=== PATIENT | male | born 1940 | race Caucasian/White ===

== ENCOUNTER → 2016-08-08 | Outpatient (CLI) | payer BC ==
[~2016-08-08] MED LIST: ACET-1256 PO; ALBUAER2 INH; ASPI-435 PO; ATOR10TA88 PO; BROM0.07 OPR; CALC667C4 PO; CRD200 PO; LOPE1TAB25 PO; MIRT15TA2 PO; MIRT30TA3 PO; MULT-513 PO; OCTR30KI6 IM; OXYC-57 PO; PANT40TA PO; PRED1SUS OPR; SODI650T8 PO; SPRIN/30 INH; SYMBICORT INH; SYMIN INH; TAMS0.4C38 PO; TIOTCAP INH; TPZ5 PO; WARF2TAB PO; WARF2TAB8 PO
[2016-08-08 14:35] LABS: THYROID STIMULATING HORMONE 1.36 uIu/ml (0.300-4.500)
== END | disposition home or self-care (01) ==
LOC: C.LABMFLN 07:22
PROVIDERS: ATTEND Internal Medicine Endocrinology, Diabetes & Metabolism
DX: E05.90 Thyrotoxicosis, unspecified without thyrotoxic crisis or storm (principal)

== ENCOUNTER → 2016-08-29 | Outpatient (CLI) | payer BC ==
[~2016-08-29] MED LIST changes: +GADOXETATE DISODIUM IV PRN; -OXYC-57 PO; -PANT40TA PO; -TPZ5 PO
--- NOTE | 2016-08-29 16:13 | DIAGNOSTIC IMAGING REPORT ---
MRI LIVER COMBO CLINICAL HISTORY: Neuroendocrine tumor of the small bowel. Liver masses. TECHNIQUE: Imaging was performed prior to and following IV contrast injection. COMPARISON STUDY: CT scan dated 05/23/2016 FINDINGS: Imaging was performed in the axial and coronal planes, before and after the administration of 5 cc of intravenous Eovist. A reduced dose was utilized as the patient is azotemic and on dialysis. The examination is mildly compromised due to motion artifact. 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 There is no pancreatic ductal dilatation. There is an 11 mm left renal cyst. No splenic masses are visualized. There is no evidence of abdominal aortic aneurysm. There is mild dilatation of the common bile duct which measures 8 mm. There is minimal intrahepatic ductal dilatation. The gallbladder surgically absent. There are 3 hepatic masses measuring 13 mm 8 mm and 7 mm respectively. These are located in segment 6 and segment 7 of the right hepatic lobe. These lesions demonstrate minimal enhancement. There are mildly T2 bright. These remain unchanged in size when compared with a prior February 28, 2016 CT scan. IMPRESSION: 1. Stable indeterminate hepatic masses measuring 13, 8, and 7 mm respectively 2. Surgically absent gallbladder. Stable mild ductal dilatation 3. 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 08/29/2016 4:12 PM Dictated Date/Time: 08/29/2016 3:47 PM
== END | disposition home or self-care (01) ==
LOC: C.MRI 14:06
PROVIDERS: ATTEND Nurse Practitioner Family
DX: C17.9 Malignant neoplasm of small intestine, unspecified (principal); C78.7 Secondary malignant neoplasm of liver and intrahepatic bile duct

== ENCOUNTER → 2016-09-19 | Outpatient (CLI) | payer BC ==
[~2016-09-19] MED LIST changes: -GADOXETATE DISODIUM IV PRN
[2016-09-19 13:02] LABS: BASO % 0.5 %; BASO ABS # 0.02 K/uL (0-0.2); COMPLETE YES; EOS % 4.1 %; HEMATOCRIT 31.7 % (42-52); IG% 0.2 %; LYMPH % 33.3 %; LYMPH ABS # 1.45 K/uL (1.2-3.4); MEAN CELL VOLUME 97.8 fL (80-100); MEAN CORPUSCULAR HEMOGLOBIN 32.7 pg (25-34); MEAN CORPUSCULAR HGB CONC 33.4 g/dl (32-36); MEAN PLATELET VOLUME 9.5 fL (7.4-10.4); MONO % 11.5 %; NEUT % 50.4 %; PLATELET COUNT 178 K/uL (130-400); RED BLOOD COUNT 3.24 M/uL (4.7-6.1); WHITE BLOOD COUNT 4.36 K/uL (4.8-10.8)
[2016-09-19 13:38] LABS: ALB/GLOB RATIO 0.8 (0.9-2); ALKALINE PHOSPHATASE 116 U/L (45-117); ALT/SGPT 14 U/L (12-78); AST/SGOT 13 U/L (15-37); BLOOD UREA NITROGEN 29 mg/dl (7-18); CALCIUM 7.1 mg/dl (8.5-10.1); CARBON DIOXIDE 31 mmol/L (21-32); CHLORIDE 96 mmol/L (98-107); GLUCOSE 228 mg/dl (70-99); POTASSIUM 3.3 mmol/L (3.5-5.1); SODIUM 138 mmol/L (136-145)
[2016-09-19 13:40] LABS: THYROID STIMULATING HORMONE 1.75 uIu/ml (0.300-4.500)
== END | disposition home or self-care (01) ==
LOC: C.LABMFLN 07:49
PROVIDERS: ATTEND Nurse Practitioner Family
DX: C17.9 Malignant neoplasm of small intestine, unspecified (principal); E05.90 Thyrotoxicosis, unspecified without thyrotoxic crisis or storm; I48.0 Paroxysmal atrial fibrillation; Z51.81 Encounter for therapeutic drug level monitoring; Z79.01 Long term (current) use of anticoagulants

== ENCOUNTER → 2016-11-07 | Outpatient (CLI) | payer BC ==
[~2016-11-07] MED LIST changes: +ATOR10TA82 PO; -ATOR10TA88 PO; -OCTR30KI6 IM; +SNDI30 IM; -WARF2TAB8 PO
[2016-11-07 18:58] LABS: THYROID STIMULATING HORMONE 0.814 uIu/ml (0.300-4.500)
== END | disposition home or self-care (01) ==
LOC: C.LABMFLN 10:35
PROVIDERS: ATTEND Physician Assistant
DX: E05.90 Thyrotoxicosis, unspecified without thyrotoxic crisis or storm (principal)

== ENCOUNTER → 2016-11-14 | Outpatient (CLI) | payer BC | END | disposition home or self-care (01) | LOC: C.LABSPEC 17:07 | PROVIDERS: ATTEND Urology | DX: R39.11 Hesitancy of micturition (principal); R35.0 Frequency of micturition ==

== ENCOUNTER → 2016-12-10 | Outpatient (CLI) | payer BC ==
[2016-12-10 18:02] LABS: URINE APPEARANCE CLOUDY (CLEAR); URINE BILIRUBIN NEG (NEG); URINE COLOR YELLOW; URINE EPITHELIAL CELL AUTO >30 /lpf (0-5); URINE NITRITE NEG (NEG); URINE SPECIFIC GRAVITY 1.016 (1.000-1.030); UROBILINOGEN NEG (NEG); ZZUR CULT IF INDIC CLEAN CATCH NO
[2016-12-10 18:15] LABS: THYROID STIMULATING HORMONE 1.43 uIu/ml (0.300-4.500)
[2016-12-10 18:16] LABS: MANUAL MICROSCOPIC REQUIRED? NO; REVIEW REQ? NO
== END | disposition home or self-care (01) ==
LOC: C.LABMFLN 12:12
PROVIDERS: ATTEND Physician Assistant
DX: R35.0 Frequency of micturition (principal); E05.90 Thyrotoxicosis, unspecified without thyrotoxic crisis or storm

== ENCOUNTER → 2017-02-06 | Day surgery (SDC) | payer BC ==
[2017-01-07 12:35] VITALS: Ht 180.3 cm; Wt 104.5 kg
[~2017-02-06] VITALS: Ht 180.3 cm; Wt 104.5 kg
[~2017-02-06] MED LIST changes: +500ML BSS 0.3ML EPI 1:1000PF IRRIG ONE; -ACET-1256 PO; +ACETAMINOPHEN 325 MG TAB PO PRN; +AMVISC PLUS 0.8ML SYRINGE INT OCU ONE; -ATOR10TA82 PO; +ATOR10TA88 PO; +ATROPINE SULFATE 0.1 MG/ML 5ML SYR IV PRN; -BROM0.07 OPR; +BSS FLUSH ONE; +EpHEDrine SULFATE INJ 50 MG/ML AMP IV PRN; +EpINEphrine INJ 1MG/ML AMP 1 MG/ML AMP ONE; +LACTATED RINGER'S 1000ML 500 ML IV SCH; +LIDOCAINE 3.5% OPH GEL PER APPLICATION CHARGE ONE; +LIDOCAINE HCL 1% MPF 2 ML VIAL ONE; +MIDAZOLAM HCL 1 MG/ML 2ML VIAL ONE; -MIRT30TA3 PO; -MULT-513 PO; +OCTR30KI6 IM; +OCUCOAT 1 ML SOLN IO ONE; +ONDANSETRON INJ 2 MG/ML 2 ML VIAL IV PRN; +POVIDONE-IODINE OP SOLN 30 ML BTL ONE; -PRED1SUS OPR; +PROPARACAINE 0.5% OP SOLN PER DROP CHARGE OPR SCH; -SNDI30 IM; -SYMBICORT INH; -TIOTCAP INH; +TOBRAMYCIN/DEXAMETHASONE OPH OINT PER APPLN CHARGE ONE
[2017-02-06] MEDS: PHENYLEPHRINE HCL 2.5% OP SOLN PER DROP CHARGE OPR SCH ×2 (10:54→11:11)
[2017-02-06] MEDS: TROPICAMIDE 1% OP SOLN PER DROP CHARGE OPR SCH ×2 (10:55→11:12)
[2017-02-06] MEDS: CYCLOPENTOLATE HCL 1% OP SOLN PER DROP CHARGE OPR SCH ×2 (10:56→11:12)
[2017-02-06] MEDS: KETOROLAC 0.5% OP SOLN PER DROP CHARGE OPR SCH ×2 (10:57→11:12)
[2017-02-06] MEDS: GATIFLOXACIN OP SOLN PER DROP CHARGE OPR SCH ×2 (10:57→11:13)
--- NOTE | 2017-02-06 11:25 | History & Physical Bridge - SC ---
H&P Re-Evaluation Bridge Note: I have examined the patient, reviewed the History & Physical and in the interval since the performance of the History & Physical I have noted the following changes of clinical significance: Diagnosis: Right Cataract Procedure: Right Cataract Removal with Lens Implant No changes noted
--- NOTE | 2017-02-06 12:25 | Discharge Instructions-SurgCtr ---
Discharge Instructions Date of Service Feb 06, 2017. Visit Reason for Visit: Cataract Right Eye Discharge Discharge Diagnosis / Problem: cataract Discharge Goals Goal(s): Improve function Activity Recommendations Activity Limitations: per Instructions/Follow-up section Anesthesia . Post Anesthesia Instructions: If you have had General Anesthesia or IV Sedation: * Do not drive today. * Resume driving when surgeon permits. * Do not make important decisions or sign legal documents today. * Call surgeon for: 1. Temperature elevations greater than 101 degrees F. 2. Uncontrollable pain. 3. Excessive bleeding. 4. Persistent nausea and vomiting. 5. Medication intolerance (nausea, vomiting or rash). * For nausea and vomiting use only clear liquids such as: tea, soda, bouillon until nausea subsides, then gradually increase diet as tolerated. * If you have any concerns or questions, call your surgeon's office. If physician is unavailable and it is an emergency, call 911 or go to the nearest emergency room. . Instructions / Follow-Up Instructions / Follow-Up ACTIVITY RECOMMENDATIONS: * No strenuous lifting, jogging or running for 4 days * No swimming or yard work for 1 week. * Limited bending is permitted, such as putting on shoes. RETURN TO SCHOOL/WORK: No work until seen by physician in office. MEDICATIONS: Resume previous medications unless instructed otherwise by your surgeon. This includes eye drops for glaucoma. Zymaxid/Gatifloxacin (carpenter cap) - one drop every 2 hours until bedtime Nevanac/Ilevro/Prolensa/Ketorolac (jain cap) - one drop every 4 hours until bedtime Prednisolone/Durezol (white/pink cap, SHAKE WELL) - one drop every 2 hours until bedtime Starting tomorrow - all 3 drops every 4 hours until seen in the office Optive drops - as needed for discomfort SPECIAL CARE INSTRUCTIONS: * Wear eyeshield when sleeping, for four nights. * You may wear your own glasses or sunglasses while awake. * You may read or watch TV * You may shower and wash your face, but be gentle around the eye and pat dry. * Blurry vision and mild irritation are normal. * Call office if pain is more severe or vision becomes dark at . FOLLOW UP VISIT: Follow-up with Dr Mendez tomorrow. Diet Recommendations Home Diet: resume previous diet Procedures Procedures Performed: Right Cataract Phacoemulsification With Intraocular Lens Implant Pending Studies Studies pending at discharge: no Medical Emergencies . Who to Call and When: Medical Emergencies: If at any time you feel your situation is an emergency, please call 911 immediately. . Non-Emergent Contact Non-Emergency issues call your: Vending Technician . . "Provider Documentation" section prepared by Nickolas Mendez. .
[2017-02-06 12:26] VITALS: TEMP 36.5
--- NOTE | 2017-02-06 12:26 | [facility] Operative Report ---
Operative Report Date of Service Feb 06, 2017. Operative Report 1. PREOPERATIVE DIAGNOSIS: Cataract of the right eye. 2. POSTOPERATIVE DIAGNOSIS: Same. 3. PROCEDURE: Phacoemulsification with intraocular lens implantation of the right eye. SURGEON: Dr. Nickolas Mendez. ANESTHESIA: Topical Lidocaine gel, 1% Non- Preserved intracameral Lidocaine, and monitored intravenous sedation. INDICATIONS FOR THE PROCEDURE: The patient is a 76 - year-old male with a history of cataract of the right eye causing significant visual impairment. The details of the proposed procedure were explained to the patient who asked appropriate questions and following discussion of all risks, benefits and alternatives agreed to have the procedure done. 4. OPERATION AND FINDINGS: DESCRIPTION OF PROCEDURE: After informed consent was obtained, the patient was brought to the Operating Room at the [facility]. The patient was placed in a supine position and then the right eye was prepped and draped in the usual sterile fashion for intraocular surgery. A drop of topical Lidocaine gel was placed in the operative eye. A wire lid speculum was then placed in the fornices. A corneal paracentesis was then created temporally. The Non-Preserved Lidocaine was then instilled into the anterior chamber. The anterior chamber was then pressurized with viscoelastic. A 2.0 mm clear corneal incision was then created temporally. A cystotome was inserted into the anterior chamber and used to create a tear in the anterior lens capsule. This capsular tear was then used to create a small flap and the flap was dragged in a counterclockwise direction in order to create a continuous curvilinear capsulorrhexis. Hydrodissection was accomplished with balanced salt solution. Phacoemulsification of the lens nucleus was then performed in a standard [id number] technique. The phaco time was 30 seconds with an average power of 8 %. The remaining cortical material was removed using irrigation aspiration. The capsular bag was then filled with viscoelastic. A Bausch & Lomb MI60L +19.0 diopters lens was then loaded into the injector and injected into the capsular bag. The remaining viscoelastic was removed with the irrigation aspiration handpiece. The wound was hydrated and then checked and found to be watertight. The intraocular pressure was checked and found to be adequate. The wire lid speculum was removed and the patient's face was cleaned and dried. TobraDex ointment was placed in the inferior fornix. The patient was discharged to the Recovery Room having tolerated the procedure well. There were no complications. The patient will be seen tomorrow in the office for follow-up. I attest to the content of the Intraoperative Record and any orders documented therein. Any exceptions are noted below.
--- NOTE | 2017-02-06 12:35 | Anesthesia Progress Nt - [facility] ---
Anesthesia Post Op Note Date & Time Feb 06, 2017 at 12:35 Vital Signs Pain Intensity: 0 Vital Signs Past 12 Hours Date Time Temp Pulse Resp B/P (MAP) Pulse Ox O2 Delivery O2 Flow Rate FiO2 02/06/17 10:31 36.9 77 18 107/61 (76) 95 Room Air Notes Mental Status: alert / awake / arousable, participated in evaluation Pt Amnestic to Procedure: Yes Nausea / Vomiting: adequately controlled Pain: adequately controlled Airway Patency, RR, SpO2: stable & adequate BP & HR: stable & adequate Hydration State: stable & adequate Anesthetic Complications: no major complications apparent
[2017-02-06 13:02] VITALS: BP 96/61; PULSE 73; O2SAT 97
== END | disposition home or self-care (01) ==
LOC: X.SURG 10:13
PROVIDERS: ATTEND Ophthalmology
DX: H26.9 Unspecified cataract (principal); J44.9 Chronic obstructive pulmonary disease, unspecified; E11.9 Type 2 diabetes mellitus without complications; N18.6 End stage renal disease; N40.0 Benign prostatic hyperplasia without lower urinary tract symptoms; H40.9 Unspecified glaucoma; E05.90 Thyrotoxicosis, unspecified without thyrotoxic crisis or storm; I25.2 Old myocardial infarction; Z99.2 Dependence on renal dialysis; Z79.82 Long term (current) use of aspirin; Z79.01 Long term (current) use of anticoagulants; Z80.0 Family history of malignant neoplasm of digestive organs; Z82.3 Family history of stroke; Z82.49 Family history of ischemic heart disease and other diseases of the circulatory system

== ENCOUNTER → 2017-03-11 | Day surgery (SDC) | payer BC ==
[2017-02-20 10:25] VITALS: Ht 180.3 cm; Wt 100.0 kg
[~2017-03-11] VITALS: Ht 180.3 cm; Wt 100.0 kg
[~2017-03-11] MED LIST changes: +ACET-1256 PO; +BROM0.07 OPR; -ONDANSETRON INJ 2 MG/ML 2 ML VIAL IV PRN; +PRED1SUS OPR; +PROPARACAINE 0.5% OP SOLN PER DROP CHARGE OPL SCH; -PROPARACAINE 0.5% OP SOLN PER DROP CHARGE OPR SCH
[2017-03-11] MEDS: PHENYLEPHRINE HCL 2.5% OP SOLN PER DROP CHARGE OPL SCH ×2 (08:59→09:03)
[2017-03-11] MEDS: TROPICAMIDE 1% OP SOLN PER DROP CHARGE OPL SCH ×2 (08:59→09:04)
[2017-03-11] MEDS: CYCLOPENTOLATE HCL 1% OP SOLN PER DROP CHARGE OPL SCH ×2 (09:00→09:05)
[2017-03-11] MEDS: KETOROLAC 0.5% OP SOLN PER DROP CHARGE OPL SCH ×2 (09:01→09:06)
[2017-03-11] MEDS: GATIFLOXACIN OP SOLN PER DROP CHARGE OPL SCH ×2 (09:02→09:13)
--- NOTE | 2017-03-11 09:29 | History & Physical Bridge - [place] ---
H&P Re-Evaluation Bridge Note: I have examined the patient, reviewed the History & Physical and in the interval since the performance of the History & Physical I have noted the following changes of clinical significance: No changes noted
--- NOTE | 2017-03-11 10:00 | Discharge Instructions-SurgCtr ---
Discharge Instructions Date of Service Mar 11, 2017. Visit Reason for Visit: Cataract Left Eye Discharge Discharge Diagnosis / Problem: cataract Discharge Goals Goal(s): Improve function Activity Recommendations Activity Limitations: per Instructions/Follow-up section Anesthesia . Post Anesthesia Instructions: If you have had General Anesthesia or IV Sedation: * Do not drive today. * Resume driving when surgeon permits. * Do not make important decisions or sign legal documents today. * Call surgeon for: 1. Temperature elevations greater than 101 degrees F. 2. Uncontrollable pain. 3. Excessive bleeding. 4. Persistent nausea and vomiting. 5. Medication intolerance (nausea, vomiting or rash). * For nausea and vomiting use only clear liquids such as: tea, soda, bouillon until nausea subsides, then gradually increase diet as tolerated. * If you have any concerns or questions, call your surgeon's office. If physician is unavailable and it is an emergency, call 911 or go to the nearest emergency room. . Instructions / Follow-Up Instructions / Follow-Up ACTIVITY RECOMMENDATIONS: * No strenuous lifting, jogging or running for 4 days * No swimming or yard work for 1 week. * Limited bending is permitted, such as putting on shoes. RETURN TO SCHOOL/WORK: No work until seen by physician in office. MEDICATIONS: Resume previous medications unless instructed otherwise by your surgeon. This includes eye drops for glaucoma. Zymaxid/Gatifloxacin (carpenter cap) - one drop every 2 hours until bedtime Nevanac/Ilevro/Prolensa/Ketorolac (jain cap) - one drop every 4 hours until bedtime Prednisolone/Durezol (white/pink cap, SHAKE WELL) - one drop every 2 hours until bedtime Starting tomorrow - all 3 drops every 4 hours until seen in the office Optive drops - as needed for discomfort SPECIAL CARE INSTRUCTIONS: * Wear eyeshield when sleeping, for four nights. * You may wear your own glasses or sunglasses while awake. * You may read or watch TV * You may shower and wash your face, but be gentle around the eye and pat dry. * Blurry vision and mild irritation are normal. * Call office if pain is more severe or vision becomes dark at . FOLLOW UP VISIT: Follow-up with Dr Mendez tomorrow. Diet Recommendations Home Diet: resume previous diet Procedures Procedures Performed: Left Cataract Phacoemulsification With Intraocular Lens Implant Pending Studies Studies pending at discharge: no Medical Emergencies . Who to Call and When: Medical Emergencies: If at any time you feel your situation is an emergency, please call 911 immediately. . Non-Emergent Contact Non-Emergency issues call your: Assistant Professor Of Mathematics . . "Provider Documentation" section prepared by Nickolas Mendez. .
[2017-03-11 10:01] VITALS: TEMP 36.3
--- NOTE | 2017-03-11 10:01 | [facility] Operative Report ---
Operative Report Date of Service Mar 11, 2017. Operative Report 1. PREOPERATIVE DIAGNOSIS: Cataract of the left eye. 2. POSTOPERATIVE DIAGNOSIS: Same. 3. PROCEDURE: Phacoemulsification with intraocular lens implantation of the left eye. SURGEON: Dr. Nickolas Mendez. ANESTHESIA: Topical Lidocaine gel, 1% Non- Preserved intracameral Lidocaine, and monitored intravenous sedation. INDICATIONS FOR THE PROCEDURE: The patient is a 76 - year-old male with a history of cataract of the left eye causing significant visual impairment. The details of the proposed procedure were explained to the patient who asked appropriate questions and following discussion of all risks, benefits and alternatives agreed to have the procedure done. 4. OPERATION AND FINDINGS: DESCRIPTION OF PROCEDURE: After informed consent was obtained, the patient was brought to the Operating Room at the [facility]. The patient was placed in a supine position and then the left eye was prepped and draped in the usual sterile fashion for intraocular surgery. A drop of topical Lidocaine gel was placed in the operative eye. A wire lid speculum was then placed in the fornices. A corneal paracentesis was then created temporally. The Non-Preserved Lidocaine was then instilled into the anterior chamber. The anterior chamber was then pressurized with viscoelastic. A 2.0 mm clear corneal incision was then created temporally. A cystotome was inserted into the anterior chamber and used to create a tear in the anterior lens capsule. This capsular tear was then used to create a small flap and the flap was dragged in a counterclockwise direction in order to create a continuous curvilinear capsulorrhexis. Hydrodissection was accomplished with balanced salt solution. Phacoemulsification of the lens nucleus was then performed in a standard [id number] technique. The phaco time was 28 seconds with an average power of 10 %. The remaining cortical material was removed using irrigation aspiration. The capsular bag was then filled with viscoelastic. A Bausch & Lomb MI60L +19.0 diopters lens was then loaded into the injector and injected into the capsular bag. The remaining viscoelastic was removed with the irrigation aspiration handpiece. The wound was hydrated and then checked and found to be watertight. The intraocular pressure was checked and found to be adequate. The wire lid speculum was removed and the patient's face was cleaned and dried. TobraDex ointment was placed in the inferior fornix. The patient was discharged to the Recovery Room having tolerated the procedure well. There were no complications. The patient will be seen tomorrow in the office for follow-up. I attest to the content of the Intraoperative Record and any orders documented therein. Any exceptions are noted below.
[2017-03-11 10:23] VITALS: BP 115/71; PULSE 98; O2SAT 95
--- NOTE | 2017-03-11 10:25 | Anesthesia Progress Nt - [facility] ---
Anesthesia Post Op Note Date & Time Mar 11, 2017 at 10:25 Vital Signs Pain Intensity: 0 Vital Signs Past 12 Hours Date Time Temp Pulse Resp B/P (MAP) Pulse Ox O2 Delivery O2 Flow Rate FiO2 03/11/17 10:23 98 16 115/71 (86) 95 Room Air 03/11/17 10:01 36.3 92 18 117/78 (91) 98 Room Air 03/11/17 08:48 36.7 96 12 100/67 (78) 96 Room Air Notes Mental Status: alert / awake / arousable, participated in evaluation Pt Amnestic to Procedure: Yes Nausea / Vomiting: adequately controlled Pain: adequately controlled Airway Patency, RR, SpO2: stable & adequate BP & HR: stable & adequate Hydration State: stable & adequate Anesthetic Complications: no major complications apparent
== END | disposition home or self-care (01) ==
LOC: X.SURG 08:22
PROVIDERS: ATTEND Ophthalmology
DX: H26.9 Unspecified cataract (principal); J44.9 Chronic obstructive pulmonary disease, unspecified; I48.91 Unspecified atrial fibrillation; E11.22 Type 2 diabetes mellitus with diabetic chronic kidney disease; N18.6 End stage renal disease; Z99.2 Dependence on renal dialysis; Z79.01 Long term (current) use of anticoagulants; Z96.1 Presence of intraocular lens

== ENCOUNTER → 2017-05-07 | Outpatient (CLI) | payer BC ==
[~2017-05-07] MED LIST changes: -500ML BSS 0.3ML EPI 1:1000PF IRRIG ONE; -ACETAMINOPHEN 325 MG TAB PO PRN; -AMVISC PLUS 0.8ML SYRINGE INT OCU ONE; -ATROPINE SULFATE 0.1 MG/ML 5ML SYR IV PRN; -BSS FLUSH ONE; -CRD200 PO; -EpHEDrine SULFATE INJ 50 MG/ML AMP IV PRN; -EpINEphrine INJ 1MG/ML AMP 1 MG/ML AMP ONE; -LACTATED RINGER'S 1000ML 500 ML IV SCH; -LIDOCAINE 3.5% OPH GEL PER APPLICATION CHARGE ONE; -LIDOCAINE HCL 1% MPF 2 ML VIAL ONE; -MIDAZOLAM HCL 1 MG/ML 2ML VIAL ONE; -OCUCOAT 1 ML SOLN IO ONE; -POVIDONE-IODINE OP SOLN 30 ML BTL ONE; -PROPARACAINE 0.5% OP SOLN PER DROP CHARGE OPL SCH; -TOBRAMYCIN/DEXAMETHASONE OPH OINT PER APPLN CHARGE ONE
--- NOTE | 2017-05-07 08:49 | DIAGNOSTIC IMAGING REPORT ---
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 COMPARISON STUDY: Abdominal CT scans dated 05/23/2016 and 02/28/2016. Abdominal MRI dated 08/29/16. TECHNIQUE: CT scan of the abdomen and pelvis is performed from the lung bases to the proximal femora. Images are reviewed in the axial, sagittal, and coronal planes. IV contrast was not administered for this examination as per the referring clinician. Note that the examination is suboptimal without oral and IV contrast.. A dose lowering technique was utilized adhering to the principles of ALARA. CT DOSE: 901.46 mGy.cm FINDINGS: Lung bases: The heart is normal in size and without pericardial effusion. The coronary arteries are calcified. Emphysematous change is suggested at the lung bases. No airspace consolidation or pleural effusion is seen. There are foci of bibasilar scarring versus atelectasis. Liver: The unenhanced liver is normal in size, contour, and attenuation. There is no intrahepatic biliary ductal dilatation. A 1.4 cm indeterminant low-attenuation lesion in hepatic segment VII seen on image #42 is unchanged from prior studies. Additional smaller hepatic lesions seen by MRI are not apparent on this unenhanced examination. No new hepatic lesion is suspected. Gallbladder: Surgically absent noting clips in the gallbladder fossa. Spleen: Normal in size and attenuation. Pancreas: A 1.2 cm cystic focus in the pancreatic neck seen on image #107 is unchanged and typical in appearance for a sidebranch IPMN. This was better seen on prior examinations. The unenhanced pancreas is moderately atrophic and otherwise grossly unremarkable. Adrenal glands: A 9 mm right adrenal nodule meets CT criteria for a fat-containing adenoma. The left adrenal gland is normal in appearance. Kidneys: The unenhanced kidneys are atrophic and without hydronephrosis. There are no renal calculi identified. Renovascular calcifications are observed. There is no evidence of contour deforming renal mass lesion. Abdominal vasculature: There is advanced atherosclerotic calcification as well as ectasia of the abdominal aorta and iliac arteries. Bowel: There are postoperative changes from right hemicolectomy with ileocolic anastomosis. No bowel obstruction is seen. There is mild to moderate diverticulosis of left colon without CT evidence of acute diverticulitis. Peritoneum: There is no intraperitoneal free air or abdominal ascites. Lymphadenopathy: None. Pelvic viscera: The prostate gland is enlarged, measuring 6.1 cm in transverse diameter. There is median lobe hypertrophy. The bladder is largely decompressed and grossly unremarkable. There is calcification of the penile tunica suggesting Peyronie's disease. Skeletal structures: The skeletal structures are osteopenic. Moderate lumbosacral spondylosis is observed. There are postoperative changes from laminectomy at L4. No lytic or blastic lesions are seen. IMPRESSION: 1. Suboptimal examination without oral and IV contrast. 2. There are no acute infectious or inflammatory findings in the abdomen or pelvis. 3. A subtle and indeterminant 1.4 cm low-attenuation lesion in the right hepatic lobe is unchanged from prior examinations. Smaller hepatic lesions seen by MRI are not apparent on CT. No new hepatic lesions are suspected. 3. There are postoperative changes from right hemicolectomy with ileocolic anastomosis. No bowel obstruction is seen. 4. Moderate diverticulosis of the left colon without CT evidence of acute diverticulitis. 5. Prostatomegaly. 6. Additional findings as above. Electronically signed by: Yair Laughlin M.D. 05/07/2017 8:48 AM Dictated Date/Time: 05/07/2017 8:27 AM
== END | disposition home or self-care (01) ==
LOC: C.CTS 07:51
PROVIDERS: ATTEND Nurse Practitioner Family
DX: C7A.019 Malignant carcinoid tumor of the small intestine, unspecified portion (principal)

== ENCOUNTER → 2017-07-01 | Outpatient (CLI) | payer BC ==
[~2017-07-01] MED LIST changes: +ATOR10TA82 PO; -ATOR10TA88 PO; -OCTR30KI6 IM; +SNDI30 IM
== END | disposition home or self-care (01) ==
LOC: C.MAMM 13:24
PROVIDERS: ATTEND Family Medicine
DX: Z13.820 Encounter for screening for osteoporosis (principal); M85.852 Other specified disorders of bone density and structure, left thigh

== ENCOUNTER → 2017-07-24 | Outpatient (CLI) | payer BC ==
--- NOTE | 2017-07-24 13:06 | DIAGNOSTIC IMAGING REPORT ---
(CHEST) THORAX WITHOUT CT DOSE: 1072.82 mGy.cm HISTORY: Emphysematous change J44.9 Chronic obstructive pulmonary [id number] TECHNIQUE: Multiaxial CT images of the chest were performed without contrast. A dose lowering technique was utilized adhering to the principles of ALARA. COMPARISON: 10/18/2015 FINDINGS: The mediastinal and hilar regions are remarkable for atherosclerotic change of the thoracic aorta. No well-defined evidence for focal aneurysm. Pleural calcification left lateral hemithorax minimally progressive from the prior study. No well-defined associated mass. Moderate chronic emphysematous change throughout both hemithoraces. This is similar as compared to the prior study. Minimal scarlike atelectatic change pleural-based left base with minimal scattered micronodularity adjacent to the major fissures. This is unchanged from the prior study and most likely represents. Fissural lymph nodes. Limited evaluation the upper abdomen shows evidence for prior cholecystectomy. Considerable cortical thinning is present. Several nonobstructing renal calcifications and/or renal vascular calcifications are present. These are similar. IMPRESSION: 1. Mild/moderate emphysematous change. 2. Several left hemithoracic pleural plaques slightly increased in geographic extent although there is no associated mass. 3. Study is otherwise negative. The above report was generated using voice recognition software. It may contain grammatical, syntax or spelling errors. Electronically signed by: Teodoro Maurice M.D. 07/24/2017 1:05 PM Dictated Date/Time: 07/24/2017 1:01 PM
== END | disposition home or self-care (01) ==
LOC: C.CTS 12:50
PROVIDERS: ATTEND Internal Medicine Pulmonary Disease
DX: J44.9 Chronic obstructive pulmonary disease, unspecified (principal); R91.8 Other nonspecific abnormal finding of lung field

== ENCOUNTER → 2017-09-18 | Outpatient (CLI) | payer BC ==
--- NOTE | 2017-09-18 12:40 | DIAGNOSTIC IMAGING REPORT ---
ADDENDUM IMPRESSION: Should read: 1. Minimal interval increase in size of a 10.4 mm cystic lesion within the pancreatic body. Electronically signed by: Teodoro Maurice M.D. 09/24/2017 12:42 PM Dictated Date/Time: 09/24/2017 12:42 PM ORIGINAL REPORT MRI ABDOMEN WITHOUT CONTRAST CLINICAL HISTORY: NEUROENDOCRINE TUMOR OF THE SMALL BOWEL renal failure TECHNIQUE: Imaging was performed without IV contrast enhancement. COMPARISON STUDY: Noncontrast CT scan dated 05/07/2017, MRI the liver dated August 29, 2016 FINDINGS: Imaging was performed in the coronal and axial planes. Intravenous contrast could not be administered due to the patient's renal failure. There is moderate respiratory motion artifact. There is mild intra and extrahepatic biliary ductal dilatation. The common bile duct measures 1 cm. There is been mild interval increase in the size of the 10.4 mm cystic lesion within the pancreatic body, likely representing IPMN Multiple T2 intense hepatic masses are visualized, the largest of which measures 14 mm. These are essentially unchanged when compared the preceding study. No splenic masses are visualized. No adrenal masses are visualized. There is no evidence of abdominal aortic dilatation. IMPRESSION: 1. Minimal interval increase in the size of a 10.4 cm cystic lesion within the pancreatic body, consistent with an IPMN 2. Multiple stable T2 hyperintense hepatic lesions, the largest of which measures 14 mm 3. Surgically absent gallbladder. Mild ductal dilatation. Electronically signed by: Grant Miller M.D. 09/18/2017 12:39 PM Dictated Date/Time: 09/18/2017 12:05 PM
== END | disposition home or self-care (01) ==
LOC: C.MRI 10:55
PROVIDERS: ATTEND Internal Medicine Hematology & Oncology
DX: C7A.019 Malignant carcinoid tumor of the small intestine, unspecified portion (principal); C78.7 Secondary malignant neoplasm of liver and intrahepatic bile duct; K86.9 Disease of pancreas, unspecified; Z90.49 Acquired absence of other specified parts of digestive tract

== ENCOUNTER → 2017-10-02 | Outpatient (CLI) | payer BC | END | disposition home or self-care (01) | LOC: C.LABMFLN 13:58 | PROVIDERS: ATTEND Physician Assistant | DX: E05.90 Thyrotoxicosis, unspecified without thyrotoxic crisis or storm (principal) ==

== ENCOUNTER → 2018-02-23 | Outpatient (CLI) | payer BC ==
[~2018-02-23] MED LIST changes: -ACET-1256 PO; -BROM0.07 OPR; +METO25TA4 PO; -MIRT15TA2 PO; -PRED1SUS OPR; +PRMT10 PO; +VNTHFA/IN INH
[2018-02-23 18:16] LABS: BASO % 0.4 %; BASO ABS # 0.03 K/uL (0-0.2); EOS % 2.2 %; EOS ABS # 0.15 K/uL (0-0.5); HEMATOCRIT 29.5 % (42-52); HEMOGLOBIN 9.8 g/dL (14.0-18.0); IG# 0.02 K/uL (0.00-0.02); LYMPH % 23.1 %; LYMPH ABS # 1.56 K/uL (1.2-3.4); MEAN CELL VOLUME 104.2 fL (80-100); MEAN CORPUSCULAR HEMOGLOBIN 34.6 pg (25-34); MEAN CORPUSCULAR HGB CONC 33.2 g/dl (32-36); MEAN PLATELET VOLUME 9.5 fL (7.4-10.4); MONO % 10.8 %; MONO ABS # 0.73 K/uL (0.11-0.59); NEUT % 63.2 %; NEUT ABS # 4.25 K/uL (1.4-6.5); PLATELET COUNT 213 K/uL (130-400); RED CELL DISTRIBUTION WIDTH CV 15.4 % (11.5-14.5); RED CELL DISTRIBUTION WIDTH SD 58.7 fL (36.4-46.3); WHITE BLOOD COUNT 6.74 K/uL (4.8-10.8)
== END | disposition home or self-care (01) ==
LOC: C.LAB 17:42
PROVIDERS: ATTEND Family Medicine
DX: K92.2 Gastrointestinal hemorrhage, unspecified (principal)

== ENCOUNTER → 2018-03-02 | Outpatient (CLI) | payer BC ==
[~2018-03-02] MED LIST changes: +PANT40TA2 PO; +SUCR1TAB PO
== END | disposition home or self-care (01) ==
LOC: C.LABSPEC 09:19
PROVIDERS: ATTEND Internal Medicine Gastroenterology
DX: D64.9 Anemia, unspecified (principal); K92.1 Melena

== ENCOUNTER 2018-03-03 19:13 | Inpatient (IN) | payer BC, OTHER ==
[~2018-03-03] VITALS: Ht 177.8 cm; Wt 105.7 kg
[~2018-03-03 19:13] MED LIST changes: -ATOR10TA82 PO; -CALC667C4 PO; -METO25TA4 PO; -PANT40TA2 PO; -PRMT10 PO; -SPRIN/30 INH; -SUCR1TAB PO; -SYMIN INH; -VNTHFA/IN INH
[2018-03-03] MEDS ORDERED: SODIUM CHLORIDE 0.9% 1000ML 1,000 ML IV STA (19:32)
[2018-03-03 20:03] LABS: BASO % 0.3 %; BASO ABS # 0.02 K/uL (0-0.2); EOS % 2.4 %; EOS ABS # 0.15 K/uL (0-0.5); HEMATOCRIT 27.5 % (42-52); IG# 0.01 K/uL (0.00-0.02); LYMPH % 23.5 %; LYMPH ABS # 1.47 K/uL (1.2-3.4); MEAN CELL VOLUME 103.4 fL (80-100); MEAN CORPUSCULAR HEMOGLOBIN 33.8 pg (25-34); MEAN CORPUSCULAR HGB CONC 32.7 g/dl (32-36); MEAN PLATELET VOLUME 8.8 fL (7.4-10.4); MONO % 9.6 %; PLATELET COUNT 170 K/uL (130-400); RED CELL DISTRIBUTION WIDTH CV 15.6 % (11.5-14.5); RED CELL DISTRIBUTION WIDTH SD 58.4 fL (36.4-46.3); WHITE BLOOD COUNT 6.25 K/uL (4.8-10.8)
[2018-03-03 20:20] LABS: INR 1.8 (0.9-1.1); PTT PATIENT 33.4 SECONDS (21.0-31.0)
[2018-03-03] MEDS ORDERED: METO25TA4 PO (20:28)
[2018-03-03] MEDS ORDERED: SODIUM CHLORIDE 0.9% 500ML 500 ML IV STA (20:32)
[2018-03-03 20:39] LABS: ALBUMIN 3.1 gm/dl (3.4-5.0); CALCIUM 8.2 mg/dl (8.5-10.1); CREATININE 6.06 mg/dl (0.60-1.40); POTASSIUM 3.4 mmol/L (3.5-5.1); TOTAL PROTEIN 6.9 gm/dl (6.4-8.2)
[2018-03-03] MEDS ORDERED: PHYTONADIONE INJ 5 MG in SODIUM CHLORIDE 0.9% 50ML 50 ML IV ONE (20:45)
[2018-03-03] MEDS ORDERED: PANTOprazole INJ 80 MG in DEXTROSE 5% 100ML IV ONE (20:45)
[2018-03-03] MEDS ORDERED: DILTIAZEM BOLUS / DRIP IV STA (20:47)
[2018-03-03] MEDS ORDERED: ALUMINUM/MAGNESIUM/SIMETH (MAALOX MAX) 30 ML UDC PO PRN (21:30)
[2018-03-03] MEDS ORDERED: ONDANSETRON INJ 2 MG/ML 2 ML VIAL IV PRN (21:30)
[2018-03-03] MEDS ORDERED: MAGNESIUM HYDROXIDE SUSP 30 ML UDC PO PRN (21:30)
--- NOTE | 2018-03-03 21:54 | History and Physical ---
History & Physical Date & Time of Service: Mar 03, 2018 at 21:44 Chief Complaint: Blood In Stool-Was Told To Go To Er Primary Care Physician: Janey Palma M.D. History of Present Illness Source: patient Patient is a 77 year old male with a PMH of COPD, ESRD on dialysis, Afib, BPH and neuroendocrine tumor of the liver that presented to [facility] due to black tarry stools. He notes that the black stools have been ongoing for the past several months. They will be very dark for a few days and then will be normal in colour for a few days. He has not had a dark stool for 8 days but was told to by his GI doctor to come to the ED if he were to experience any further dark stools. He started having dark stools earlier today and therefore he came to the ED. He denies any abdominal pain, bright red blood in his stools, he denies any diarrhea, he denies any pain with passing stools, he denies any nausea, vomiting , fevers or chills. He is on coumadin and his INR is currently 1.8. On review of systems the patient mentioned that he has been feeling short of breath recently when walking even a few steps. He also had 2 episodes of chest pain last week that last 2-3 minutes in duration. He notes he gets occasional palpitations and that he has Afib. He denies any leg swelling, PND, cough, or dizziness. Past Medical/Surgical History COPD, ESRD, Afib, BPH, neuroendocrine tumor of liver Family History No pertinent family history Social History Smoking Status: Former Smoker Smokeless Tobacco Use: No Alcohol Use: occasionally Drug Use: none Marital Status: Housing status: lives alone Occupational Status: retired Immunizations History of Influenza Vaccine: Yes History of Tetanus Vaccine?: Unknown History of Pneumococcal: Yes History of Hepatitis B Vaccine: Unknown Allergies Coded Allergies: No Known Allergies (Unverified , 03/03/18) Home Medications Scheduled Aspirin (Aspirin 81), 81 MG PO QAM Atorvastatin (Lipitor), 10 MG PO HS Calcium Acetate (Phoslo 667 Mg), 1 CAP PO TID Loperamide Hcl (Loperamide Hcl), 2 MG PO TID Metoprolol Succinate (Toprol Xl), 12.5 MG PO QPM Midodrine (Midodrine HCl), 5 MG PO 3XWK Octreotide Acetate (Sandostatin [place]), 30 MG IM MONTHLY Tamsulosin Hcl (Flomax), 0.4 MG PO QPM Tiotropium [place] (Spiriva Handihaler), 1 CAP INH QPM Warfarin Sodium (Coumadin), 2 MG PO 6XWK Warfarin Sodium (Coumadin), 3 MG PO WK Scheduled PRN Albuterol Hfa (Ventolin Hfa), 2-4 PUFFS INH Q6H PRN for Shortness of Breath Budesonide/Formoterol Fumarate (Symbicort 160-4.5 Mcg/Act), 1 PUFF INH DAILY PRN for Shortness of Breath Review of Systems 10 systems were reviewed and negative except as noted in the HPI Physical Exam Vital Signs Date Time Temp Pulse Resp B/P (MAP) Pulse Ox O2 Delivery O2 Flow Rate FiO2 03/03/18 20:44 120 19 96 03/03/18 20:44 118 03/03/18 20:30 116 22 127/82 91 Room Air 03/03/18 20:11 117 24 101/73 95 Room Air 03/03/18 19:59 95 Room Air 03/03/18 19:16 36.9 133 20 101/60 96 Room Air General Appearance: WD/WN, no apparent distress ENT: hearing grossly normal, pharynx normal Neck: supple, no carotid bruits, trachea midline, + JVD (half way up to the angle of the mandible) Respiratory/Chest: no respiratory distress, no accessory muscle use, + decreased breath sounds (bilaterally), + wheezing (bilaterally) Cardiovascular: no murmur, normal peripheral pulses, + irregularly irregular Abdomen/GI: normal bowel sounds, non tender, soft Extremities/Musculoskelatal: + pertinent finding (well maintained fistula in his R forearm) Neurologic/Psych: alert, normal mood/affect, oriented x 3 Skin: normal color, warm/dry, no rash Diagnostics Laboratory Results Results Past 24 Hours Test 03/03/18 19:45 03/03/18 19:50 Range/Units Urine Color DK YELLOW Urine Appearance CLEAR CLEAR Urine pH 5.0 4.5-7.5 Urine Specific [place] 1.018 1.000-1.030 Urine Protein 1+ NEG Urine Glucose (UA) NEG NEG Urine Ketones NEG NEG Urine Occult Blood TRACE NEG Urine Nitrite NEG NEG Urine Bilirubin NEG NEG Urine Urobilinogen NEG NEG Urine Leukocyte Esterase NEG NEG Urine WBC (Auto) 1-5 0-5 /hpf Urine RBC (Auto) 5-10 0-4 /hpf Urine Hyaline Casts (Auto) 1-5 0-5 /lpf Urine Epithelial Cells (Auto) 10-20 0-5 /lpf Urine Bacteria (Auto) NEG NEG White Blood Count 6.25 4.8-10.8 K/uL Red Blood Count 2.66 4.7-6.1 M/uL Hemoglobin 9.0 14.0-18.0 g/dL Hematocrit 27.5 42-52 % Mean Corpuscular Volume 103.4 80-100 fL Mean Corpuscular Hemoglobin 33.8 25-34 pg Mean Corpuscular Hemoglobin Concent 32.7 32-36 g/dl Platelet Count 170 130-400 K/uL Mean Platelet Volume 8.8 7.4-10.4 fL Neutrophils (%) (Auto) 64.0 % Lymphocytes (%) (Auto) 23.5 % Monocytes (%) (Auto) 9.6 % Eosinophils (%) (Auto) 2.4 % Basophils (%) (Auto) 0.3 % Neutrophils # (Auto) 4.00 1.4-6.5 K/uL Lymphocytes # (Auto) 1.47 1.2-3.4 K/uL Monocytes # (Auto) 0.60 0.11-0.59 K/uL Eosinophils # (Auto) 0.15 0-0.5 K/uL Basophils # (Auto) 0.02 0-0.2 K/uL RDW Standard Deviation 58.4 36.4-46.3 fL RDW Coefficient of Variation 15.6 11.5-14.5 % Immature Granulocyte % (Auto) 0.2 % Immature Granulocyte # (Auto) 0.01 0.00-0.02 K/uL Prothrombin Time 18.2 9.0-12.0 SECONDS Prothromb Time International Ratio 1.8 0.9-1.1 Activated Partial Thromboplast Time 33.4 21.0-31.0 SECONDS Partial Thromboplastin Ratio 1.3 Sodium Level 140 136-145 mmol/L Potassium Level 3.4 3.5-5.1 mmol/L Chloride Level 100 98-107 mmol/L Carbon Dioxide Level 28 21-32 mmol/L Anion Gap 12.0 3-11 mmol/L Blood Urea Nitrogen 47 7-18 mg/dl Creatinine 6.06 0.60-1.40 mg/dl Est Creatinine Clear Calc Drug Dose 12.9 ml/min Estimated GFR () 9.6 Estimated GFR (Non- 8.3 BUN/Creatinine Ratio 7.8 10-20 Random Glucose 144 70-99 mg/dl Calcium Level 8.2 8.5-10.1 mg/dl Total Bilirubin 0.4 0.2-1 mg/dl Direct Bilirubin 0.1 0-0.2 mg/dl Aspartate Amino Transf (AST/SGOT) 21 15-37 U/L Alanine Aminotransferase (ALT/SGPT) 16 12-78 U/L Alkaline Phosphatase 86 45-117 U/L Troponin I 0.019 0-0.045 ng/ml Total Protein 6.9 6.4-8.2 gm/dl Albumin 3.1 3.4-5.0 gm/dl Lipase 210 73-393 U/L EKG KKEKG with afib RVR Impression Assessment and Plan Patient is a 77 year old male with a PMH of COPD, ESRD on dialysis, Afib, BPH and neuroendocrine tumor of the liver that presented to [facility] due to black tarry stools. Anemia secondary to GI bleed - NPO except meds - pantoprazole 40mg bid IV - trend hgb/inr - hold aspirin and warfarin - will given one unit of blood - will check b12 and folate - consult Dr. Tafoya Shortness of breath - afib vs copd vs chf vs nstemi on differential - CXR and troponin not ordered in the ED, therefore I ordered these COPD - patient wheezing on exam - duonebs q4 scheduled - 60mg of methylprednisolone q8 - CXR ordered Afib - admit to telemetry - continue metoprolol - patient started on cardizem drip, will stop - will give 20meq of potassium and check magnesium/tsh - warfarin held and aspirin held - follows with Dr. Deluna ESRD on dialysis - dialysis on Friday, Friday and Friday - continue calcium - patient currently appears hypervolemic - consult nephro for dialysis tomorrow BPH - continue tamsulosin HLD - continue statin Neuroendocrine tumor of liver - patient receives octreotide injections once monthly - currently stable DVT prophylaxis - contraindicated due to GI bleed Dispo - patient lives alone - PT/OT evaluations DNR Attending addendum: I have physically seen this patient, have supervised the medical residents activities, and agree with the H&P unless as otherwise noted. Assessment and Plan: Upper GI bleed/anemia-- N.p.o. except essential medications Type and screen. Pantoprazole IV. H&H's every 6 hours. Hold aspirin and warfarin. Consult gastroenterology Dr. Tafoya. Atrial fibrillation/hypertension-- The patient will be admitted to telemetry for serial cardiac enzymes, serial EKG's, cardiac rhythm monitoring and a 2-D echocardiogram with Dopplers. Continue metoprolol with hold parameters. We stopped the Cardizem drip before it was started in the ED due to borderline blood pressure. Optimize potassium and magnesium Holding warfarin and aspirin as noted above. Consult Dr. Deluna, his drywall application supervisor. Remainder of orders and notations as above. Advanced Directives Existing Advance Directive: Yes Existing Living Will: Yes Existing Power of Seed Potato Arranger: Yes Resuscitation Status VTE Prophylaxis Will order VTE Prophylaxis: Yes
[2018-03-03] MEDS: PANTOprazole INJ 40 MG in DEXTROSE 5% 100ML IV SCH (22:47)
[2018-03-03] MEDS: DILTIAZEM HCL INJ 125 MG in DEXTROSE 5% 100ML IV PRN ×2 (22:49→23:06)
[2018-03-03] MEDS ORDERED: POTASSIUM CHLORIDE 10 MEQ TABCR PO STA (23:15)
[2018-03-03 23:25] VITALS: BP 129/87; PULSE 127; TEMP 36.8; O2SAT 97; Ht 177.8 cm; Wt 105.7 kg
--- NOTE | 2018-03-03 23:35 | DIAGNOSTIC IMAGING REPORT ---
CHEST 2 VIEWS ROUTINE HISTORY: Shortness of breath COMPARISON: Chest 02/06/2018. FINDINGS: The heart is normal in size. No pleural effusions. No pneumothorax. Mild interstitial thickening which is likely chronic. A few scarlike linear density at the left lung base, unchanged. No new focal lung consolidations to suggest pneumonia. No evidence for pulmonary edema. Emphysema is again noted. There are bilateral calcified pleural plaques. IMPRESSION: No significant change compared to the prior study. No acute process. Electronically signed by: Freddy Davis M.D. 03/03/2018 11:34 PM Dictated Date/Time: 03/03/2018 11:32 PM
[2018-03-04] VITALS (31 sets, daily range): BP systolic 100–134; BP diastolic 66–92; PULSE 97–135; TEMP 36.4–37; O2SAT 94–97
[2018-03-04] MEDS: METHYLPREDNISOLONE IV 60 MG in SYRINGE 0 ML IV SCH ×2 (00:22→08:28)
[2018-03-04 00:32] LABS: HEMATOCRIT 27.1 % (42-52); HEMOGLOBIN 8.8 g/dL (14.0-18.0)
--- NOTE | 2018-03-04 01:06 | EMERGENCY ROOM VISIT NOTE ---
History Report prepared by Yudith: Samanta Blanca Under the Supervision of: Dr. Adolph Hull D.O. First contact with patient: 19:21 Chief Complaint: GI ASSESSMENT Stated Complaint: BLOOD IN STOOL-WAS TOLD TO GO TO ER History of Present Illness The patient is a 77 year old male who presents to the Emergency Room with complaints of intermittent blood in stool beginning 1 month ago. He notes some SOB beginning about 2 weeks ago. The patient denies pain or burning with urination or abdominal pain. He states he does not believe he has ever had blood in his stool in the past. The patient sees Dr. Tafoya as his GI specialist. He takes Coumadin, and his number has been 2. He notes he is unsure why he takes Coumadin and denies a history of valve replacement. The patient denies a history of PE. Patient denies any chest pain or shortness of breath while sitting. Shortness of breath is only present with up and moving around. No other complaints at this time. Source of History: patient, family Onset: 1 month ago Position: abdomen Quality: other (blood in stool) Timing: intermittent Associated Symptoms: + SOB (beginning 2 weeks ago), No abdominal pain, No urinary symptoms Review of Systems See HPI for pertinent positives & negatives. A total of 10 systems reviewed and were otherwise negative. Past Medical & Surgical Medical Problems: (1) Black stools (2) Ileostomy present (3) Liver cancer Family History No pertinent family history Social History Smoking Status: Former Smoker Drug Use: none Marital Status: , Housing Status: lives with family Occupation Status: retired Current/Historical Medications Scheduled Aspirin (Aspirin 81), 81 MG PO QAM Atorvastatin (Lipitor), 10 MG PO HS Calcium Acetate (Phoslo 667 Mg), 1 CAP PO TID Loperamide Hcl (Loperamide Hcl), 2 MG PO TID Metoprolol Succinate (Toprol Xl), 12.5 MG PO QPM Midodrine (Midodrine HCl), 5 MG PO 3XWK Octreotide Acetate (Sandostatin [place]), 30 MG IM MONTHLY Tamsulosin Hcl (Flomax), 0.4 MG PO QPM Tiotropium [place] (Spiriva Handihaler), 1 CAP INH QPM Warfarin Sodium (Coumadin), 2 MG PO 6XWK Warfarin Sodium (Coumadin), 3 MG PO WK Scheduled PRN Albuterol Hfa (Ventolin Hfa), 2-4 PUFFS INH Q6H PRN for Shortness of Breath Budesonide/Formoterol Fumarate (Symbicort 160-4.5 Mcg/Act), 1 PUFF INH DAILY PRN for Shortness of Breath Allergies Coded Allergies: No Known Allergies (Unverified , 03/03/18) Physical Exam Vital Signs Date Time Temp Pulse Resp B/P (MAP) Pulse Ox O2 Delivery O2 Flow Rate FiO2 03/03/18 21:31 /54 03/03/18 21:28 132 22 96 03/03/18 21:27 135 27 96 03/03/18 21:01 109/74 03/03/18 20:57 127 21 94 03/03/18 20:44 120 19 96 03/03/18 20:44 118 03/03/18 20:30 116 22 127/82 91 Room Air 03/03/18 20:11 117 24 101/73 95 Room Air 03/03/18 19:59 95 Room Air 03/03/18 19:16 36.9 133 20 101/60 96 Room Air Physical Exam GENERAL: Sitting up in bed, alert, pale appearing, well nourished, no distress, non-toxic EYE EXAM: normal conjunctiva. OROPHARYNX: no exudate, no erythema, lips, buccal mucosa, and tongue normal and mucous membranes are moist NECK: supple, no nuchal rigidity, no adenopathy, non-tender LUNGS: Clear to auscultation. Normal chest wall mechanics HEART: tachycardic. no murmurs, S1 normal and S2 normal ABDOMEN: abdomen soft, non-tender, normo-active bowel sounds, no masses, no rebound or guarding. BACK: Back is symmetrical on inspection and there is no deformity, no midline tenderness, no CVA tenderness. SKIN: no rashes and no bruising UPPER EXTREMITIES: upper extremities are grossly normal. LOWER EXTREMITIES: No pitting edema. NEURO EXAM: Normal sensorium, cranial nerves II-XII grossly intact, normal speech, no gross weakness of arms, no gross weakness of legs. RECTAL: Guaiac positive stool, dark/tarry. Medical Decision & Procedures ER Provider Diagnostic Interpretation: Radiology results as stated below per my review: 2 VIEW OF CHEST No focal infiltrate, no pneumothorax. Laboratory Results 03/03/18 19:50 Red Blood Count 2.66, Mean Corpuscular Volume 103.4, Mean Corpuscular Hemoglobin 33.8, Mean Corpuscular Hemoglobin Concent 32.7, Mean Platelet Volume 8.8, Neutrophils (%) (Auto) 64.0, Lymphocytes (%) (Auto) 23.5, Monocytes (%) ( Auto) 9.6, Eosinophils (%) (Auto) 2.4, Basophils (%) (Auto) 0.3, Neutrophils # ( Auto) 4.00, Lymphocytes # (Auto) 1.47, Monocytes # (Auto) 0.60, Eosinophils # ( Auto) 0.15, Basophils # (Auto) 0.02 03/03/18 19:50 Test 03/03/18 19:45 03/03/18 19:50 Urine Color DK YELLOW Urine Appearance CLEAR (CLEAR) Urine pH 5.0 (4.5-7.5) Urine Specific [place] 1.018 (1.000-1.030) Urine Protein 1+ (NEG) Urine Glucose (UA) NEG (NEG) Urine Ketones NEG (NEG) Urine Occult Blood TRACE (NEG) Urine Nitrite NEG (NEG) Urine Bilirubin NEG (NEG) Urine Urobilinogen NEG (NEG) Urine Leukocyte Esterase NEG (NEG) Urine WBC (Auto) 1-5 /hpf (0-5) Urine RBC (Auto) 5-10 /hpf (0-4) Urine Hyaline Casts (Auto) 1-5 /lpf (0-5) Urine Epithelial Cells (Auto) 10-20 /lpf (0-5) Urine Bacteria (Auto) NEG (NEG) White Blood Count 6.25 K/uL (4.8-10.8) Red Blood Count 2.66 M/uL (4.7-6.1) Hemoglobin 9.0 g/dL (14.0-18.0) Hematocrit 27.5 % (42-52) Mean Corpuscular Volume 103.4 fL (80-100) Mean Corpuscular Hemoglobin 33.8 pg (25-34) Mean Corpuscular Hemoglobin Concent 32.7 g/dl (32-36) Platelet Count 170 K/uL (130-400) Mean Platelet Volume 8.8 fL (7.4-10.4) Neutrophils (%) (Auto) 64.0 % Lymphocytes (%) (Auto) 23.5 % Monocytes (%) (Auto) 9.6 % Eosinophils (%) (Auto) 2.4 % Basophils (%) (Auto) 0.3 % Neutrophils # (Auto) 4.00 K/uL (1.4-6.5) Lymphocytes # (Auto) 1.47 K/uL (1.2-3.4) Monocytes # (Auto) 0.60 K/uL (0.11-0.59) Eosinophils # (Auto) 0.15 K/uL (0-0.5) Basophils # (Auto) 0.02 K/uL (0-0.2) RDW Standard Deviation 58.4 fL (36.4-46.3) RDW Coefficient of Variation 15.6 % (11.5-14.5) Immature Granulocyte % (Auto) 0.2 % Immature Granulocyte # (Auto) 0.01 K/uL (0.00-0.02) Prothrombin Time 18.2 SECONDS (9.0-12.0) Prothromb Time International Ratio 1.8 (0.9-1.1) Activated Partial Thromboplast Time 33.4 SECONDS (21.0-31.0) Partial Thromboplastin Ratio 1.3 Anion Gap 12.0 mmol/L (3-11) Est Creatinine Clear Calc Drug Dose 12.9 ml/min Estimated GFR () 9.6 Estimated GFR (Non- 8.3 BUN/Creatinine Ratio 7.8 (10-20) Calcium Level 8.2 mg/dl (8.5-10.1) Total Bilirubin 0.4 mg/dl (0.2-1) Direct Bilirubin 0.1 mg/dl (0-0.2) Aspartate Amino Transf (AST/SGOT) 21 U/L (15-37) Alanine Aminotransferase (ALT/SGPT) 16 U/L (12-78) Alkaline Phosphatase 86 U/L (45-117) Troponin I 0.018 ng/ml (0-0.045) Total Protein 6.9 gm/dl (6.4-8.2) Albumin 3.1 gm/dl (3.4-5.0) Lipase 210 U/L (73-393) Laboratory results per my review. Medications Administered Medications (Trade) Dose Ordered Sig/Carlos Route Start Time Stop Time Status Last Admin Dose Admin Sodium Chloride 1,000 ml @ 999 mls/hr Q1H1M STAT IV 03/03/18 19:32 03/03/18 20:32 DC 03/03/18 20:08 999 MLS/HR Pantoprazole Sodium (Protonix IV Bolus/Drip) 1 ea NOW STAT IV 03/03/18 20:31 03/03/18 20:32 DC 03/03/18 22:47 1 EA Sodium Chloride 500 ml @ 999 mls/hr Q31M STAT IV 03/03/18 20:32 03/03/18 21:02 DC 03/03/18 21:54 999 MLS/HR Pantoprazole Sodium 80 mg/ Dextrose 120 ml @ 480 mls/hr NOW ONCE IV 03/03/18 20:45 03/03/18 20:59 DC 03/03/18 22:24 480 MLS/HR Pantoprazole Sodium 40 mg/ Dextrose 100 ml @ 20 mls/hr Q5H IV 03/03/18 20:45 03/04/18 01:45 03/03/18 22:47 20 MLS/HR Phytonadione 5 mg/ Sodium Chloride 50.5 ml @ 101 mls/hr ONE ONCE IV 03/03/18 20:45 03/03/18 21:14 DC 03/03/18 21:46 101 MLS/HR Diltiazem HCl 125 mg/Dextrose 125 ml @ 0 mls/hr Q0M PRN IV 03/03/18 21:00 03/04/18 00:14 DC 03/03/18 22:49 5 MLS/HR ECG Per My Interpretation Indication: tachycardia Rate (beats per minute): 124 Rhythm: atrial fibrillation (with RVR) Findings: other (norml axis) ED Course ED COURSE: Vital signs were reviewed and showed tachycardia. The patients medical record was reviewed The above diagnostic studies were performed and reviewed. ED treatments and interventions as stated above. 1926: The patient was evaluated in room C11B. A complete history and physical examination was performed. 1931: Ordered Sodium Chloride 1000 ml @ 999 mls/hr IV. 2030: Ordered Pantoprazole Sodium 1 ea IV, Sodium Chloride 500 ml @ 999 mls/hr IV. 2044: Ordered Phytonadione 5 mg/Sodium Chloride 50.5 ml @ 101 mls/hr Protocol IV , Pantoprazole Sodium 40mg/Dextrose 100 ml @ 20 mls/hr IV, Pantoprazole Sodium 80mg/Dextrose 120 ml @ 480 mls/hr IV. 2046: Ordered Diltiazem HCl 1 ea IV. 2099: I reviewed the patient's case with Dr. Kaur [facility] hospitalist. He will evaluate the patient for further management. 2102: Upon reevaluation, the patient's HR is in the 110s and BP in the 120s. I discussed my findings with the patient and he understands and agrees with the treatment plan. Based on the patients age, coexisting illnesses, exam and lab findings the decision to treat as an inpatient was made. The patient remained stable while under my care. The patient will be evaluated for further management. Medical Decision Differential diagnoses includes but is not limited to gastritis, peptic ulcer disease, GERD, gallbladder disease, pancreatitis, small bowel obstruction, acute coronary syndrome, pericarditis, ischemic bowel, irritable bowel disease, irritable bowel syndrome, appendicitis, diverticulitis, malignancy, hernia, urinary tract infection, torsion, perforation, trauma, infectious. Patient is a 77-year-old male with past medical history of A. fib on Coumadin that presents the ER for dark tarry stools associated with shortness of breath with exertion. Labs were obtained and show a hemoglobin of 9 off of a baseline of 10. BMP shows a significant increase of creatinine at 6 off of a baseline of 3. LFTs, bilirubin and troponin was negative. INR was 1.8. UA was negative. Rectally melanotic and heme positive stools. Patient was given IV vitamin K for reversal of his INR. Vitals did show A. fib with RVR. He was given initially fluids and his heart rate trended down. He was placed on a Cardizem drip as well. He was typed and crossed. He was monitored closely. Patient was admitted to internal medicine with a GI bleed on a Protonix drip, and Cardizem drip for A. fib with RVR receiving fluid replacement for BERNY. Medication Reconcilliation Current Medication List: was personally reviewed by me Blood Pressure Screening Patient's blood pressure: Normal blood pressure Blood pressure disposition: Did not require urgent referral Consults Time Called: 2038 Consulting Physician: Dr. Kaur [facility] hospitalist Returned Call: [phone] I reviewed the patient's case with Dr. Kaur [facility] hospitalist. He will evaluate the patient for further management. Impression Primary Impression: GI bleed Additional Impressions: Atrial fibrillation with RVR Acute kidney injury Critical Care I have personally spent 35 minutes of critical care time in the direct management of this patient. This includes bedside care, interpretation of diagnostic studies, and testing, discussion with consultants, patient, and family members, and other required patient management activities. This 35 minutes is in excess of all separately billable procedures. Scribe Attestation The scribe's documentation has been prepared under my direction and personally reviewed by me in its entirety. I confirm that the note above accurately reflects all work, treatment, procedures, and medical decision making performed by me. Departure Information Dispostion Being Evaluated By Hospitalist Referrals Janey Palma M.D. (PCP) Patient Instructions My [facility] Problem Qualifiers Primary Impression: GI bleed GI bleed type/associated pathology: unspecified gastrointestinal hemorrhage type Qualified Codes: K92.2 - Gastrointestinal hemorrhage, unspecified
[2018-03-04] MEDS: PANTOprazole INJ 40 MG in DEXTROSE 5% 100ML IV SCH (03:30)
[2018-03-04 05:45] LABS: INR 1.4 (0.9-1.1)
[2018-03-04 06:06] LABS: HEMATOCRIT 29.7 % (42-52); HEMOGLOBIN 9.7 g/dL (14.0-18.0); MEAN CELL VOLUME 103.1 fL (80-100); MEAN CORPUSCULAR HEMOGLOBIN 33.7 pg (25-34); MEAN CORPUSCULAR HGB CONC 32.7 g/dl (32-36); MEAN PLATELET VOLUME 9.6 fL (7.4-10.4); PLATELET COUNT 167 K/uL (130-400); RED CELL DISTRIBUTION WIDTH CV 16.1 % (11.5-14.5); RED CELL DISTRIBUTION WIDTH SD 60.3 fL (36.4-46.3); WHITE BLOOD COUNT 7.01 K/uL (4.8-10.8)
[2018-03-04 06:10] LABS: CALCIUM 7.7 mg/dl (8.5-10.1); CREATININE 6.38 mg/dl (0.60-1.40); POTASSIUM 4.3 mmol/L (3.5-5.1); TOTAL PROTEIN 6.8 gm/dl (6.4-8.2)
[2018-03-04] MEDS: ALBUT/IPRATROP 3MG/0.5MG NEB 3 ML VIAL INH SCH ×4 (07:04→19:08)
--- NOTE | 2018-03-04 07:53 | Family Medicine Progress Note ---
Progress Note Date of Service Mar 04, 2018. Subjective Pt evaluation today including: conversation w/ patient, physical exam, chart review Pain: Denies pain this am PO Intake: NPO currently Voiding: no voiding problems Patient feels well this morning, stating the unit of blood has made him feel "almost 100%". Has not passed another BM since the episode yesterday. Constitutional: No fever, No chills ENT: No hearing loss Respiratory: + wheezing, + shortness of breath Cardiovascular: No chest pain Abdomen: + GI bleeding Musculoskeletal: No calf pain Male : No dysuria, No hematuria Heme: + abnormal bleeding/bruising Skin: No bleeding All Other Systems: Reviewed and Negative Medications Current Inpatient Medications Medications (Trade) Dose Ordered Sig/Carlos Route Start Time Stop Time Status Last Admin Dose Admin Ondansetron HCl (Zofran Inj) 4 mg Q6H PRN IV 03/03/18 21:30 04/02/18 21:29 Metoprolol Succinate (Toprol Xl Tab) 12.5 mg QPM PO 03/04/18 21:00 04/03/18 20:59 Midodrine (Proamatine Tab) 5 mg MoWeFr@0800 PO 03/04/18 08:00 04/03/18 07:59 Tamsulosin HCl (Flomax Cap) 0.4 mg QPM PO 03/04/18 21:00 04/03/18 20:59 Miscellaneous Information (Order Awaiting Action) 1 ea QS N/A 03/04/18 08:00 04/03/18 07:59 Pantoprazole Sodium 40 mg/ Syringe 10 ml @ 5 mls/min DAILY@ IV 03/04/18 09:00 04/03/18 08:59 Albuterol/ Ipratropium (Duoneb) 3 ml QIDR INH 03/04/18 08:00 04/03/18 07:59 03/04/18 07:04 3 ML Methylprednisolone Sodium Succinate 60 mg/Syringe 0.96 ml @ 1.5 mls/min Q8H IV 03/04/18 00:00 04/03/18 00:00 03/04/18 00:22 1.5 MLS/MIN Objective Vital Signs Date Time Temp Pulse Resp B/P (MAP) Pulse Ox O2 Delivery O2 Flow Rate FiO2 03/04/18 07:04 112 18 95 Room Air 03/04/18 06:51 37.0 117 18 106/76 (86) 94 Room Air 03/04/18 03:27 36.6 121 18 110/78 94 03/04/18 02:52 36.6 120 18 113/75 96 03/04/18 01:52 36.6 110 18 110/74 95 03/04/18 01:22 37.0 117 18 105/69 94 03/04/18 01:07 36.7 123 18 107/74 (85) 95 Room Air 03/04/18 00:01 36.8 130 20 129/87 (101) 97 Room Air 03/03/18 23:25 36.8 127 18 129/87 97 Room Air 03/03/18 23:04 118 20 110/76 100 Nasal Cannula 2.0 03/03/18 22:50 125 21 109/77 100 Nasal Cannula 2.0 03/03/18 22:46 119 19 95 03/03/18 22:45 109/77 03/03/18 22:26 120 19 94 03/03/18 22:01 99/72 03/03/18 21:58 124 19 94 03/03/18 21:31 /54 03/03/18 21:28 132 22 96 03/03/18 21:27 135 27 96 03/03/18 21:01 109/74 03/03/18 20:57 127 21 94 03/03/18 20:44 120 19 96 03/03/18 20:44 118 03/03/18 20:30 116 22 127/82 91 Room Air 03/03/18 20:11 117 24 101/73 95 Room Air 03/03/18 19:59 95 Room Air 03/03/18 19:16 36.9 133 20 101/60 96 Room Air Physical Exam General Appearance: WD/WN, no apparent distress Eyes: PERRL, EOMI, sclerae normal ENT: hearing grossly normal Neck: no carotid bruits, trachea midline Respiratory/Chest: no respiratory distress, no accessory muscle use, + decreased breath sounds, + wheezing Cardiovascular: regular rate, rhythm, no edema, + systolic murmur Abdomen: normal bowel sounds, non tender, soft, + pertinent finding (scars from previous abdominal surgeries on abdominal wall) Extremities: non-tender, normal inspection, no pedal edema Neurologic/Psychiatric: no motor/sensory deficits, alert, normal mood/affect, oriented x 3 Skin: normal color, warm/dry Laboratory Results Last Resulted 03/04/18 05:20 Last Resulted 03/04/18 05:20 Past 24 Hours Test 03/03/18 19:50 03/04/18 05:20 Range/Units Prothromb Time International Ratio 1.8 H 1.4 H 0.9-1.1 Prothrombin Time 18.2 H 15.1 H 9.0-12.0 SECONDS Troponin I 0.018 0-0.045 ng/ml Assessment and Plan Patient is a 77 year old male with a PMH of COPD, ESRD on dialysis, Afib, BPH and neuroendocrine tumor of the liver that presented to [facility] due to black tarry stools. Microcytic anemia secondary to GI bleed - NPO except meds for possible GI investigation - pantoprazole 40mg bid IV - trend H&H - hold aspirin and warfarin, watch INR - 1U PRBC given on admission, hemoglobin responded appropriately - B12 and folate WNL - consult Dr. Tafoya Dyspnea, COPD - afib vs copd vs chf vs nstemi on differential - CXR shows chronic interstitial change, emphysema - troponin neg x 2 - patient wheezing on exam - duonebs q4 scheduled - 60mg of methylprednisolone q8 - CXR ordered Afib - continue metoprolol - will give 20meq of potassium - TSH normal - warfarin held and aspirin held - follows with Dr. Deluna ESRD on dialysis - dialysis on Friday, Friday and Friday - continue calcium - patient currently appears hypervolemic - consulted nephro for dialysis, HD set up for MWF --Also checking AVF patency via US today BPH - continue tamsulosin HLD - continue statin Neuroendocrine tumor of liver - patient receives octreotide injections once monthly - currently stable DVTP: contraindicated due to GI bleed Dispo: Tele, pt lives alone/PTOT evals Code: DNR Resident Physician Supervision Note: I interviewed and examined the patient. Discussed with Dr. Pittman and agree with findings and plan as documented in the note. Any exceptions or clarifications are listed here: None Documented By: Adolph Jackson feeling better melena this AM but none since feeling better with breathing vitals noted nad getting HD whne i see him, no pallor or icterus GI bleeding in the setting of coumadin use with subtherapeutic but elevated- [id number] INR with acute blood loss anemia -given SOB resolved after transfusion - probably was symptomatic anemia -GI eval - support cautious approach of GI, but also agree scope needed given that it would be most beneficial to get him back on anticoagulation as soon as is safe afib/RVR - probably got tachy from anemia, staying tachy due to arrhythmia - essentially asymptomatic - gently bring in line w additional metoprolol ESRD - HD otherwise as above Resident Tracking Resident Involvement: Resident Care Provided Care Provided: Adult Hospital Medicine
[2018-03-04] MEDS: PANTOprazole INJ 40 MG in SYRINGE 0 ML IV SCH ×2 (08:27→21:15)
[2018-03-04] MEDS ORDERED: CALCIUM ACETATE 667MG GELCAP PO SCH (09:00)
[2018-03-04] MEDS ORDERED: EPOETIN ALFA 10,000 UNITS/ML VIAL IV. ONE (09:45)
[2018-03-04] MEDS ORDERED: EPOETIN ALFA INJ 8,000 UNITS in SYRINGE 0 ML IV. SCH (10:00)
--- NOTE | 2018-03-04 10:04 | Nephrology Consultation ---
Nephrology Consultation Date & Providers Date of Consultation: Mar 04, 2018. Primary Care Provider: Janey Palma M.D. Referring Provider: Reason for Consultation ESRD on IHD History of Present Illness Mr. Lindsay is a 77-year-old white male who is seen at the request of the [facility] to provide inpatient HD and assist with medical management. Medical records in the EMR were reviewed today and are summarized as follows: Mr. Lindsay has ESRD and dialyzes MWF at [facility] dialysis unit under the care of Dr. Stevens. 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 Resection of liver lesion was not possible due to widespread metastatic disease. He is now managed by the [facility] team and reports that he receives monthly Somatostatin infusions. Mr. Lindsay reports that for the last two weeks he has had intermittent melena. This has progressively worsened. He contacted his [facility] and admission was advised for further evaluation. Mr. Lindsay was last dialyzed Friday. He reports that he has recently experienced prolonged bleeding following from his needle sites following dialysis. He requests AVF evaluation during his hospitalization. Past Medical/Surgical History Medical: # ESRD # AODM # ASCVD # Atrial fibrillation # Anemia # Pulmonary HTN # Aortic stenosis # BPH # Small bowel neuroendocrine tumor s/p [place] [facility] # Liver metastasis Allergies Coded Allergies: No Known Allergies (Unverified , 03/03/18) Inpatient Medications Current Inpatient Medications Medications (Trade) Dose Ordered Sig/Carlos Route Start Time Stop Time Status Last Admin Dose Admin Ondansetron HCl (Zofran Inj) 4 mg Q6H PRN IV 03/03/18 21:30 04/02/18 21:29 Metoprolol Succinate (Toprol Xl Tab) 12.5 mg QPM PO 03/04/18 21:00 04/03/18 20:59 Midodrine (Proamatine Tab) 5 mg MoWeFr@0800 PO 03/04/18 08:00 04/03/18 07:59 Tamsulosin HCl (Flomax Cap) 0.4 mg QPM PO 03/04/18 21:00 04/03/18 20:59 Miscellaneous Information (Order Awaiting Action) 1 ea QS N/A 03/04/18 08:00 04/03/18 07:59 Pantoprazole Sodium 40 mg/ Syringe 10 ml @ 5 mls/min DAILY@09,21 IV 03/04/18 09:00 04/03/18 08:59 03/04/18 08:27 5 MLS/MIN Albuterol/ Ipratropium (Duoneb) 3 ml QIDR INH 03/04/18 08:00 04/03/18 07:59 03/04/18 07:04 3 ML Methylprednisolone Sodium Succinate 60 mg/Syringe 0.96 ml @ 1.5 mls/min Q8H IV 03/04/18 00:00 04/03/18 00:00 03/04/18 08:28 1.5 MLS/MIN Epoetin Artur (Procrit Inj) 8,000 units ONE ONCE IV. 03/04/18 09:45 03/04/18 09:46 UNV Heparin Sodium (Porcine) (No Heparin In Dialysis) 1 ea ONE ONCE N/A 03/04/18 09:45 03/04/18 09:46 UNV Family History No pertinent family history Negative for CKD / ESRD Social History Smoking Status: Former Smoker Alcohol Use: occasionally Drug Use: none Marital Status: , Housing Status: lives alone Occupation: retired . Retired. Former smoker Review of Systems Constitutional: No fever Respiratory: + wheezing Cardiovascular: No chest pain Abdomen: + problem reported (melena), No pain, No nausea, No vomiting A complete review of systems was performed. Pertinent positives are noted above. All other systems are negative. Physical Exam Date Time Temp Pulse Resp B/P (MAP) Pulse Ox O2 Delivery O2 Flow Rate FiO2 03/04/18 08:00 Room Air 03/04/18 07:04 112 18 95 Room Air 03/04/18 06:51 37.0 117 18 106/76 (86) 94 Room Air 03/04/18 03:27 36.6 121 18 110/78 94 03/04/18 02:52 36.6 120 18 113/75 96 03/04/18 01:52 36.6 110 18 110/74 95 03/04/18 01:22 37.0 117 18 105/69 94 03/04/18 01:07 36.7 123 18 107/74 (85) 95 Room Air 03/04/18 00:01 36.8 130 20 129/87 (101) 97 Room Air 03/03/18 23:25 36.8 127 18 129/87 97 Room Air 03/03/18 23:04 118 20 110/76 100 Nasal Cannula 2.0 03/03/18 22:50 125 21 109/77 100 Nasal Cannula 2.0 03/03/18 22:46 119 19 95 03/03/18 22:45 109/77 03/03/18 22:26 120 19 94 03/03/18 22:01 99/72 03/03/18 21:58 124 19 94 03/03/18 21:31 /54 03/03/18 21:28 132 22 96 03/03/18 21:27 135 27 96 03/03/18 21:01 109/74 03/03/18 20:57 127 21 94 03/03/18 20:44 120 19 96 03/03/18 20:44 118 03/03/18 20:30 116 22 127/82 91 Room Air 03/03/18 20:11 117 24 101/73 95 Room Air 03/03/18 19:59 95 Room Air 03/03/18 19:16 36.9 133 20 101/60 96 Room Air General Appearance: no apparent distress Head: normocephalic, atraumatic Eyes: PERRL Neck: no adenopathy Respiratory/Chest: + wheezing Cardiovascular: + tachycardia, + irregularly irregular Abdomen/GI: normal bowel sounds, non tender, soft Extremities/Musculoskelatal: no calf tenderness, no pedal edema, + pertinent finding (AVF + bruit) Neurologic/Psych: alert, oriented x 3 Laboratory Results Last 24 Hours Test 03/03/18 19:45 03/03/18 19:50 03/04/18 00:14 03/04/18 05:20 Urine Color DK YELLOW Urine Appearance CLEAR Urine pH 5.0 Urine Specific [place] 1.018 Urine Protein 1+ Urine Glucose (UA) NEG Urine Ketones NEG Urine Occult Blood TRACE Urine Nitrite NEG Urine Bilirubin NEG Urine Urobilinogen NEG Urine Leukocyte Esterase NEG Urine WBC (Auto) 1-5 /hpf Urine RBC (Auto) 5-10 /hpf Urine Hyaline Casts (Auto) 1-5 /lpf Urine Epithelial Cells (Auto) 10-20 /lpf Urine Bacteria (Auto) NEG White Blood Count 6.25 K/uL 7.01 K/uL Red Blood Count 2.66 M/uL 2.88 M/uL Hemoglobin 9.0 g/dL 8.8 g/dL 9.7 g/dL Hematocrit 27.5 % 27.1 % 29.7 % Mean Corpuscular Volume 103.4 fL 103.1 fL Mean Corpuscular Hemoglobin 33.8 pg 33.7 pg Mean Corpuscular Hemoglobin Concent 32.7 g/dl 32.7 g/dl Platelet Count 170 K/uL 167 K/uL Mean Platelet Volume 8.8 fL 9.6 fL Neutrophils (%) (Auto) 64.0 % Lymphocytes (%) (Auto) 23.5 % Monocytes (%) (Auto) 9.6 % Eosinophils (%) (Auto) 2.4 % Basophils (%) (Auto) 0.3 % Neutrophils # (Auto) 4.00 K/uL Lymphocytes # (Auto) 1.47 K/uL Monocytes # (Auto) 0.60 K/uL Eosinophils # (Auto) 0.15 K/uL Basophils # (Auto) 0.02 K/uL RDW Standard Deviation 58.4 fL 60.3 fL RDW Coefficient of Variation 15.6 % 16.1 % Immature Granulocyte % (Auto) 0.2 % Immature Granulocyte # (Auto) 0.01 K/uL Prothrombin Time 18.2 SECONDS 15.1 SECONDS Prothromb Time International Ratio 1.8 1.4 Activated Partial Thromboplast Time 33.4 SECONDS Partial Thromboplastin Ratio 1.3 Sodium Level 140 mmol/L 138 mmol/L Potassium Level 3.4 mmol/L 4.3 mmol/L Chloride Level 100 mmol/L 104 mmol/L Carbon Dioxide Level 28 mmol/L 23 mmol/L Anion Gap 12.0 mmol/L 11.0 mmol/L Blood Urea Nitrogen 47 mg/dl 51 mg/dl Creatinine 6.06 mg/dl 6.38 mg/dl Est Creatinine Clear Calc Drug Dose 12.9 ml/min 12.3 ml/min Estimated GFR () 9.6 9.0 Estimated GFR (Non- 8.3 7.8 BUN/Creatinine Ratio 7.8 7.9 Random Glucose 144 mg/dl 178 mg/dl Calcium Level 8.2 mg/dl 7.7 mg/dl Total Bilirubin 0.4 mg/dl 0.5 mg/dl Direct Bilirubin 0.1 mg/dl Aspartate Amino Transf (AST/SGOT) 21 U/L 19 U/L Alanine Aminotransferase (ALT/SGPT) 16 U/L 15 U/L Alkaline Phosphatase 86 U/L 78 U/L Troponin I 0.018 ng/ml Total Protein 6.9 gm/dl 6.8 gm/dl Albumin 3.1 gm/dl 3.0 gm/dl Lipase 210 U/L Thyroid Stimulating Hormone (TSH) 0.448 uIu/ml Globulin 3.8 gm/dl Albumin/Globulin Ratio 0.8 Vitamin B12 Level 316 pg/mL Folate 12.47 ng/mL Impression (1) Melena (2) ESRD (end stage renal disease) on dialysis (3) Neuroendocrine carcinoma metastatic to liver (4) Diabetes Recommendations -- Will provide heparin free HD today. Orders entered into EMR and HD RN notified -- Will order R upper arm AVF US to assess for central stenosis -- Will consult Vascular Surgery to assess AVF due to prolonged bleeding following HD -- Recommend serial H&H -- Await GI input re: melena
[2018-03-04 11:14] LABS: HEMATOCRIT 28.9 % (42-52); HEMOGLOBIN 9.6 g/dL (14.0-18.0)
--- NOTE | 2018-03-04 12:52 | DIAGNOSTIC IMAGING REPORT ---
DOPPLER ULTRASOUND HEMODIALYSIS ACCESS CLINICAL HISTORY: Prolonged bleeding time from the AV fistula. Question venous stenosis. COMPARISON STUDY: No priors. FINDINGS: Real-time, grayscale, and color Doppler sonography of the right upper extremity dialysis fistula is performed. An AV fistula is seen extending from the right brachial artery to the right cephalic vein. The fistula is patent. There is no evidence of thrombus 316 cm/s within the fistula. Velocities measure up to 400 cm/s, greatest near the arterial anastomosis. The cephalic vein is patent distal to the fistula. IMPRESSION: 1. The right upper extremity AV fistula is patent as above. 2. There is no sonographic evidence of stenosis in the cephalic vein distal to the fistula. Dictated: 03/04/2018 12:31 PM Transcribed: 03/04/2018 12:51 PM DEVONTE_[email or web address] Electronically signed by: Yair Laughlin M.D. 03/04/2018 1:13 PM Dictated Date/Time: 03/04/2018 12:31 PM
[2018-03-04] MEDS: MIDODRINE 2.5 MG TAB PO SCH (13:16)
[2018-03-04] MEDS ORDERED: METOPROLOL TARTRATE 25 MG TAB PO ONE ×2 (16:00→21:00)
--- NOTE | 2018-03-04 18:27 | GASTROINTESTINAL CONSULTATION ---
DATE OF CONSULTATION: 03/04/2018 REASON FOR EVALUATION: Melena. HISTORY OF PRESENT ILLNESS: The patient is a 77-year-old male who I have seen recently in the office for evaluation of melena and anemia. The patient has been taking aspirin and Coumadin for chronic atrial fibrillation and it was felt that he probably had either gastric or duodenal ulcer from the aspirin with a bleeding potentiated by the Coumadin which was in the therapeutic range. I had him hold the aspirin and continue use of proton pump inhibitor to try to heal the ulcer off aspirin without having to intervene with an upper endoscopy due to his serious underlying health problems, but I did tell him to come to the hospital if he had signs of recurrent bleeding. He did have some melena yesterday and ended up coming to the hospital where he was admitted with a hemoglobin of 9, which is slightly lower than it had been few days ago, got a unit of blood last night and is feeling much better. He is currently getting dialyzed, which he gets every Friday, Friday, and Friday. He has had no further black stools. He denies dizziness or lightheadedness or nausea. PAST MEDICAL HISTORY: Remarkable for COPD, end-stage renal disease, on dialysis, chronic atrial fibrillation, benign prostatic hypertrophy. He has a neuroendocrine tumor of the distal small bowel, status post ileocecal resection, ileal right colon resection, and also has multiple liver metastases as well. MEDICATIONS: Per list. ALLERGIES: None. FAMILY HISTORY: Noncontributory. SOCIAL HISTORY: The patient is a former smoker, drinks alcohol occasionally. He is , lives alone, his daughter lives in the local area as well. REVIEW OF SYSTEMS: Negative except for those mentioned in the history of present illness. PHYSICAL EXAMINATION: GENERAL: The patient has rhinophyma. VITAL SIGNS: His blood pressure is 127/82, pulse is 116. ABDOMEN: Shows right-sided abdominal scar from his right colon resection. There is also a temporary ostomy scar there as well. No masses or hepatosplenomegaly. No tenderness. IMPRESSION: The patient has recurrent melena, probably from peptic ulcer from his aspirin. His aspirin and Coumadin are currently being held and the patient has been placed on IV pantoprazole. At this point, I think we are kind of forced to proceed with an EGD to evaluate the source for his melena. I do want to wait and see what Dr. Deluna feels about his heart before proceeding with the procedure tomorrow to assess his procedure risk.
[2018-03-04] MEDS ORDERED: ATORVASTATIN 10 MG TAB PO SCH (21:00)
[2018-03-04] MEDS ORDERED: METOPROLOL SUCC 25MG EXT REL TAB PO SCH (21:00)
[2018-03-04] MEDS: TAMSULOSIN HCL 0.4 MG CAP PO SCH (21:15)
[2018-03-05] VITALS (17 sets, daily range): BP systolic 99–138; BP diastolic 63–85; PULSE 76–142; TEMP 36.4–37.1; O2SAT 91–97
[2018-03-05 06:55] LABS: BASO % 0.3 %; BASO ABS # 0.02 K/uL (0-0.2); EOS % 0.1 %; EOS ABS # 0.01 K/uL (0-0.5); HEMATOCRIT 30.7 % (42-52); IG# 0.02 K/uL (0.00-0.02); LYMPH % 18.1 %; MEAN CORPUSCULAR HEMOGLOBIN 33.6 pg (25-34); MEAN CORPUSCULAR HGB CONC 32.6 g/dl (32-36); MEAN PLATELET VOLUME 9.6 fL (7.4-10.4); MONO % 7.5 %; MONO ABS # 0.58 K/uL (0.11-0.59); NEUT % 73.7 %; NEUT ABS # 5.72 K/uL (1.4-6.5); PLATELET COUNT 165 K/uL (130-400); RED CELL DISTRIBUTION WIDTH CV 16.3 % (11.5-14.5); RED CELL DISTRIBUTION WIDTH SD 61.1 fL (36.4-46.3); WHITE BLOOD COUNT 7.75 K/uL (4.8-10.8)
[2018-03-05] MEDS: ALBUT/IPRATROP 3MG/0.5MG NEB 3 ML VIAL INH SCH ×4 (07:09→19:44)
[2018-03-05 07:11] LABS: INR 1.2 (0.9-1.1)
[2018-03-05 07:33] LABS: CALCIUM 7.9 mg/dl (8.5-10.1); CREATININE 4.24 mg/dl (0.60-1.40); POTASSIUM 3.9 mmol/L (3.5-5.1)
[2018-03-05] MEDS: PANTOprazole INJ 40 MG in SYRINGE 0 ML IV SCH ×2 (07:50→20:25)
--- NOTE | 2018-03-05 08:12 | Progress Note ---
Progress Note Date of Service Mar 05, 2018. Progress Note d/w dr weldon last night - we are both in agreement that potential benefits of endoscopic w/u outweigh risks, and pt medically acceptable risk for endoscopic procedures.
[2018-03-05] MEDS ORDERED: METOPROLOL SUCC 25MG EXT REL TAB PO ONE (09:45)
--- NOTE | 2018-03-05 10:06 | Nephrology Progress Note ---
Nephrology Progress Note Date of Service Mar 05, 2018. Chief Complaint ESRD on IHD Subjective Mr. Lindsay was seen & examined in his hospital room this morning. He was dialyzed yesterday without complication. He did not have prolonged bleeding from his AVF site yesterday. Mr. Lindsay continues to have melena. Review of Systems Constitutional: No fever Cardiovascular: No chest pain Respiratory: No dyspnea at rest Abdomen: + melena, No pain, No vomiting Extremities: No leg edema A complete review of systems was performed. Pertinent positives are noted above. All other systems are negative. Vital Signs Last 8 Hrs Date Time Temp Pulse Resp B/P (MAP) Pulse Ox O2 Delivery O2 Flow Rate FiO2 03/05/18 07:09 98 16 95 Room Air 03/05/18 06:56 37.1 108 20 103/67 (79) 94 Room Air 03/05/18 03:40 36.5 108 18 105/66 (79) 95 Room Air Last Recorded Weight Weight (Kilograms): 104.900 Physical Exam General Appearance: no apparent distress Head: normocephalic, atraumatic Eyes: PERRL, EOMI Neck: no adenopathy Respiratory/Chest: lungs clear, no respiratory distress Cardiovascular: + irregularly irregular Abdomen/GI: normal bowel sounds, non tender, soft Extremities/Musculoskelatal: no calf tenderness, no pedal edema Neurologic/Psych: alert, oriented x 3 Family History No pertinent family history Negative for CKD / ESRD Social History Smoking Status: Former smoker Smokeless Tobacco Use: No Alcohol Use: occasionally Drug Use: none Marital Status: , Housing Status: lives alone Occupation: retired . Retired. Former smoker Laboratory Results Past 24 Hours 03/04/18 11:00 03/05/18 06:38 Red Blood Count 2.98, Mean Corpuscular Volume 103.0, Mean Corpuscular Hemoglobin 33.6, Mean Corpuscular Hemoglobin Concent 32.6, Mean Platelet Volume 9.6, Neutrophils (%) (Auto) 73.7, Lymphocytes (%) (Auto) 18.1, Monocytes (%) ( Auto) 7.5, Eosinophils (%) (Auto) 0.1, Basophils (%) (Auto) 0.3, Neutrophils # ( Auto) 5.72, Lymphocytes # (Auto) 1.40, Monocytes # (Auto) 0.58, Eosinophils # ( Auto) 0.01, Basophils # (Auto) 0.02 03/05/18 06:38 Test 03/05/18 06:38 White Blood Count 7.75 K/uL (4.8-10.8) Red Blood Count 2.98 M/uL (4.7-6.1) Hemoglobin 10.0 g/dL (14.0-18.0) Hematocrit 30.7 % (42-52) Mean Corpuscular Volume 103.0 fL (80-100) Mean Corpuscular Hemoglobin 33.6 pg (25-34) Mean Corpuscular Hemoglobin Concent 32.6 g/dl (32-36) Platelet Count 165 K/uL (130-400) Mean Platelet Volume 9.6 fL (7.4-10.4) Neutrophils (%) (Auto) 73.7 % Lymphocytes (%) (Auto) 18.1 % Monocytes (%) (Auto) 7.5 % Eosinophils (%) (Auto) 0.1 % Basophils (%) (Auto) 0.3 % Neutrophils # (Auto) 5.72 K/uL (1.4-6.5) Lymphocytes # (Auto) 1.40 K/uL (1.2-3.4) Monocytes # (Auto) 0.58 K/uL (0.11-0.59) Eosinophils # (Auto) 0.01 K/uL (0-0.5) Basophils # (Auto) 0.02 K/uL (0-0.2) RDW Standard Deviation 61.1 fL (36.4-46.3) RDW Coefficient of Variation 16.3 % (11.5-14.5) Immature Granulocyte % (Auto) 0.3 % Immature Granulocyte # (Auto) 0.02 K/uL (0.00-0.02) Prothrombin Time 12.2 SECONDS (9.0-12.0) Prothromb Time International Ratio 1.2 (0.9-1.1) Anion Gap 10.0 mmol/L (3-11) Est Creatinine Clear Calc Drug Dose 18.3 ml/min Estimated GFR () 14.8 Estimated GFR (Non- 12.8 BUN/Creatinine Ratio 7.4 (10-20) Calcium Level 7.9 mg/dl (8.5-10.1) Allergies Coded Allergies: No Known Allergies (Unverified , 03/03/18) Medications Current Inpatient Medications Medications (Trade) Dose Ordered Sig/Carlos Route Start Time Stop Time Status Last Admin Dose Admin Ondansetron HCl (Zofran Inj) 4 mg Q6H PRN IV 03/03/18 21:30 04/02/18 21:29 Metoprolol Succinate (Toprol Xl Tab) 12.5 mg QPM PO 03/04/18 21:00 04/03/18 20:59 03/04/18 21:47 12.5 MG Midodrine (Proamatine Tab) 5 mg MoWeFr@0800 PO 03/04/18 08:00 04/03/18 07:59 03/04/18 13:16 5 MG Tamsulosin HCl (Flomax Cap) 0.4 mg QPM PO 03/04/18 21:00 04/03/18 20:59 03/04/18 21:15 0.4 MG Miscellaneous Information (Order Awaiting Action) 1 ea QS N/A 03/04/18 08:00 04/03/18 07:59 Pantoprazole Sodium 40 mg/ Syringe 10 ml @ 5 mls/min DAILY@09,21 IV 03/04/18 09:00 04/03/18 08:59 03/05/18 07:50 5 MLS/MIN Albuterol/ Ipratropium (Duoneb) 3 ml QIDR INH 03/04/18 08:00 04/03/18 07:59 03/05/18 07:09 3 ML Impression (1) Melena (2) ESRD (end stage renal disease) on dialysis (3) Neuroendocrine carcinoma metastatic to liver (4) Diabetes Recommendations END STAGE RENAL DISEASE: -- Will provide heparin free HD in am. Orders entered into EMR and HD RN notified VASCULAR ACCESS: -- AVF doppler was negative for stenosis. I have spoken w/ Vascular surgery. Patient will require fistulagram. Discussed indications w/ patient. He is agreeable. ANEMIA: -- Will provide DILCIA w/ HD -- Will check iron saturation & ferritin w/ next lab draw -- Await GI input re: melena. Patient may require EGD CV: -- Chronic atrial fibrillation. On Metoprolol for rate control
--- NOTE | 2018-03-05 11:58 | Medical Consult ---
Consultation Note Date of Service Mar 05, 2018. Consultation Note CC: End stage renal disease, bleeding from fistula HPI: Mr. Tamez has had multiple medical problems in the past, which resulted in multiple hospitalizations and surgical procedures over the said period of time. His renal function has declined significantly. He had a right antecubital cephalic vein av fistula done in the past. He now had increase bleeding from the puncture sites. He admits occasional numbness of his right hand, which is chronic, but he denies headaches, fevers, chills, dizziness, chest pain, shortness of breath, abdominal pain, nausea, vomiting, dysuria, hematuria, rest pain, claudication or nonhealing wounds or ulcers or other complaints. His allergies include no known allergies. His home medications are reconciled in the chart and include the following: Acetaminophen Quickmelt, low-dose aspirin, atorvastatin, calcium acetate, Coumadin, loperamide, methimazole, metoprolol, mirtazapine, Octreotide, ondansetron, Protonix, sodium bicarbonate and Ventolin. His past medical history is positive for anemia, atrial fibrillation, type 2 diabetes mellitus, end-stage kidney disease, hyperthyroidism, seasonal allergies. His past surgical history positive for colonoscopy, prostatectomy, back surgery and knee operation on the medial meniscus, he is also status post right hemicolectomy with small bowel resection and cholecystectomy. He subsequently underwent an abdominal washout in the operating room as well and resection of the ileocolic anastomosis with ileostomy. His family history is positive for colon cancer in his mother, heart attack in his father and stroke in his brother. His social history is negative for tobacco, alcohol or drug use. His review of systems is positive for fatigue, is negative for sweats or fevers. He has had some weight loss concerns, although this seems to have stabilized. He is able to get around after undergoing intense physical therapy. He denies any significant rashes, vision changes or photophobia. He does have a history of some chronic hearing loss. He denies cough, shortness of breath, hemoptysis or wheezing, chest pain, palpitations or syncope. He denies abdominal pain at this time and he currently has an ileostomy. He denies hematuria or dysuria, but does not make much urine at this time. His musculoskeletal review of systems is positive for generalized weakness, which is improving. He denies headaches, dizziness, or seizures. On physical exam, his vital signs today are as follows: Blood pressure of 100/ 58 in the left arm, 102/52 in the right arm, heart rate of 78, respiratory rate of 18, oxygen saturation 96% on room air. Constitutional: In general, patient is a mildly chronically ill-appearing elderly male in no acute distress. He ambulates slowly without assistance and is active, alert and oriented x4. His head is normocephalic and atraumatic. His eyes were EOMI. His ENMT exam demonstrates some mild hearing loss, but no oropharyngeal erythema. His neck is supple and nontender with a midline trachea without masses or crepitus. His lung exam demonstrates no dyspnea, they are clear to auscultation bilaterally. They are slightly decreased throughout. Cardiovascular exam demonstrates nondisplaced apical impulse with a regular rhythm. His peripheral pulses are full and equal in all extremities unless otherwise noted, specifically they are normal on his carotid, brachial, radial and femoral pulses. His bilateral lower extremities, distal pulses are +2. He demonstrates no bruits in his carotid, abdominal or femoral area. His abdomen is soft, nontender with normoactive bowel sounds in all 4 quadrants without guarding or rebound. He does have a right-sided ileostomy noted. His musculoskeletal exam demonstrates normal tone and strength for age. His bilateral upper extremities demonstrate no cyanosis, edema, clubbing, varicosities or ulcers. There is a good thrill and bruit in the proximal portion of the fistula of the right arm. The patient' s bilateral lower extremities demonstrate no cyanosis, edema, clubbing, varicosities or ulcers. Neurologically, patient is grossly intact cranial nerves and grossly intact sensation. ASSESSMENT AND PLAN: Imp: End-stage renal disease on hemodialysis Malfunctioning av fistula Plan: A fistulogram with possible intervention was recommended. I have discussed the risks options and benefits of the procedure with the patient. The patient understands the risks options and benefits and agrees to the procedure. <Electronically signed by Silviano Robles M.D.> Signed: 11/14/15 0611 Signed: The status of this report is Signed * If report status is Draft, the document has not been finalized by the responsible provider. MNE: [facility] History and Physical Template <AttendingPhy>Silviano Robles M.D.</AttendingPhy><EDPhy></EDPhy> <FamilyPhy> Janey Palma M.D.</FamilyPhy> <PrimaryPhy>Janey Palma M.D.</PrimaryPhy> <UnitNumber>[id number]</UnitNumber><VisitNumber>[id number]</VisitNumber>< PatientName>SOULEYMANE TAMEZ</PatientName><DateOfBirth>1940</DateOfBirth>< Age>75</Age><Location>C.ACU</Location><ServiceDate></ServiceDate><CC>Janey Palma M.D. Simoni, Eugene J., M.D.</CC><MNE>ACUTEMED</MNE> [id number] Patient: SOULEYMANE TAMEZ Admit Date: [facility] Rec: [id number] Acct ID: [id number] Page:
[2018-03-05] MEDS ORDERED: METOPROLOL TARTRATE 1 MG/ML VIAL IV STA (12:37)
--- NOTE | 2018-03-05 13:29 | Family Medicine Progress Note ---
Progress Note Date of Service Mar 05, 2018. Subjective Pt evaluation today including: conversation w/ patient, physical exam, lab review Pain: Denies pain PO Intake: NPO for scope today Voiding: no voiding problems Pt feels well aside from being hungry this AM. He does report he had another episode of melena today. He is not concerned about his procedure later today. Constitutional: No fever, No chills Respiratory: No cough, No wheezing, No shortness of breath Cardiovascular: No chest pain, No edema Abdomen: + GI bleeding, No pain, No vomiting, No diarrhea Musculoskeletal: No joint pain All Other Systems: Reviewed and Negative Medications Current Inpatient Medications Medications (Trade) Dose Ordered Sig/Carlos Route Start Time Stop Time Status Last Admin Dose Admin Ondansetron HCl (Zofran Inj) 4 mg Q6H PRN IV 03/03/18 21:30 04/02/18 21:29 Midodrine (Proamatine Tab) 5 mg MoWeFr@0800 PO 03/04/18 08:00 04/03/18 07:59 03/04/18 13:16 5 MG Tamsulosin HCl (Flomax Cap) 0.4 mg QPM PO 03/04/18 21:00 04/03/18 20:59 03/04/18 21:15 0.4 MG Miscellaneous Information (Order Awaiting Action) 1 ea QS N/A 03/04/18 08:00 04/03/18 07:59 Pantoprazole Sodium 40 mg/ Syringe 10 ml @ 5 mls/min DAILY@09,21 IV 03/04/18 09:00 04/03/18 08:59 03/05/18 07:50 5 MLS/MIN Albuterol/ Ipratropium (Duoneb) 3 ml QIDR INH 03/04/18 08:00 04/03/18 07:59 03/05/18 11:19 3 ML Metoprolol Succinate (Toprol Xl Tab) 12.5 mg BID PO 03/05/18 21:00 04/03/18 20:59 Epoetin Artur (Procrit Inj) 10,000 units TODAY@0600 IV. 03/06/18 06:00 03/06/18 23:59 Paricalcitol (Zemplar Inj) 3 mcg TODAY@0600 IV. 03/06/18 06:00 03/06/18 23:59 Cefazolin Sodium 15 ml @ 3.75 mls/ min PREOP IV 03/06/18 06:00 03/07/18 05:59 Objective Vital Signs Date Time Temp Pulse Resp B/P (MAP) Pulse Ox O2 Delivery O2 Flow Rate FiO2 03/05/18 12:00 37.1 139 16 122/75 (91) 95 Room Air 03/05/18 11:19 108 16 95 Room Air 03/05/18 08:00 Room Air 03/05/18 07:09 98 16 95 Room Air 03/05/18 06:56 37.1 108 20 103/67 (79) 94 Room Air 03/05/18 03:40 36.5 108 18 105/66 (79) 95 Room Air 03/04/18 23:59 Room Air 03/04/18 23:38 36.7 118 18 100/66 (77) 95 Room Air 03/04/18 19:30 36.5 122 16 113/73 (86) 95 Room Air 03/04/18 19:08 100 18 97 Room Air 03/04/18 17:53 36.6 97 134/92 (106) 03/04/18 17:45 118 122/68 03/04/18 17:30 135 112/74 03/04/18 17:15 109 106/85 03/04/18 17:00 107 105/84 03/04/18 16:45 120 118/84 03/04/18 16:30 131 122/73 03/04/18 16:15 131 129/81 03/04/18 16:00 118 119/81 03/04/18 16:00 Room Air 03/04/18 15:45 120 113/80 03/04/18 15:30 122 123/80 03/04/18 15:15 133 117/73 03/04/18 15:00 36.4 119 20 122/78 (93) 96 Room Air 03/04/18 15:00 119 120/78 03/04/18 14:45 119 113/83 03/04/18 14:30 113 113/85 03/04/18 14:15 108 123/82 03/04/18 14:00 128 113/78 03/04/18 13:43 36.6 121 114/74 (87) Physical Exam General Appearance: WD/WN, no apparent distress Eyes: PERRL, EOMI ENT: hearing grossly normal Neck: no carotid bruits, trachea midline Respiratory/Chest: no respiratory distress, no accessory muscle use, + decreased breath sounds Cardiovascular: no edema, + systolic murmur, + irregularly irregular Abdomen: normal bowel sounds, non tender, soft Extremities: non-tender, normal inspection, no pedal edema, no calf tenderness Neurologic/Psychiatric: alert, normal mood/affect, oriented x 3 Skin: normal color Laboratory Results Last Resulted 03/05/18 06:38 Red Blood Count 2.98, Mean Corpuscular Volume 103.0, Mean Corpuscular Hemoglobin 33.6, Mean Corpuscular Hemoglobin Concent 32.6, Mean Platelet Volume 9.6, Neutrophils (%) (Auto) 73.7, Lymphocytes (%) (Auto) 18.1, Monocytes (%) ( Auto) 7.5, Eosinophils (%) (Auto) 0.1, Basophils (%) (Auto) 0.3, Neutrophils # ( Auto) 5.72, Lymphocytes # (Auto) 1.40, Monocytes # (Auto) 0.58, Eosinophils # ( Auto) 0.01, Basophils # (Auto) 0.02 Last Resulted 03/05/18 06:38 Past 24 Hours Test 03/05/18 06:38 Range/Units Prothromb Time International Ratio 1.2 H 0.9-1.1 Prothrombin Time 12.2 H 9.0-12.0 SECONDS Assessment and Plan Patient is a 77 year old male with a PMH of COPD, ESRD on dialysis, Afib, BPH and neuroendocrine tumor of the liver that presented to [facility] due to black tarry stools. Microcytic anemia secondary to GI bleed - NPO except meds for scope today - pantoprazole 40mg bid IV - Daily H&H - hold aspirin and warfarin, watch INR - 1U PRBC given on admission, hemoglobin responded appropriately - B12 and folate WNL Dyspnea, COPD - afib vs copd vs chf vs nstemi on differential - CXR shows chronic interstitial change, emphysema - troponin neg x 2 - duonebs q4 scheduled Afib - continue metoprolol (increased home dose of 12.5 to 12.5 BID), has required some IV lopressor for rate control - will give 20meq of potassium - TSH normal - warfarin held and aspirin held - follows with Dr. Deluna ESRD on dialysis - dialysis on Friday, Friday and Friday - continue calcium - patient currently appears hypervolemic - consulted nephro for dialysis, HD set up for MWF. AVF patent BPH - continue tamsulosin HLD - continue statin Neuroendocrine tumor of liver - patient receives octreotide injections once monthly - currently stable DVTP: contraindicated due to GI bleed Dispo: Tele, pt lives alone/PTOT evals Code: DNR Resident Physician Supervision Note: I interviewed and examined the patient. Discussed with Dr. Pittman and agree with findings and plan as documented in the note. Any exceptions or clarifications are listed here: None Documented By: Adolph Jackson feeling better melena this AM but none since feeling better with breathing vitals noted nad breathing unlabored no pallor or icterus GI bleeding in the setting of coumadin use with subtherapeutic but elevated- [id number] INR with acute blood loss anemia -given SOB resolved after transfusion - probably was symptomatic anemia -scope today afib/RVR - probably got tachy from anemia, staying tachy due to arrhythmia - continue to titrate metoprolol ESRD - HD otherwise as above Resident Tracking Resident Involvement: Resident Care Provided Care Provided: Adult Hospital Medicine
[2018-03-05] MEDS ORDERED: LIDOCAINE HCL 2% 2 ML VIAL (20MG/ML) ONE (16:38)
[2018-03-05] MEDS ORDERED: PROPOFOL IV EMULSION 10 MG/ML 20 ML VIAL ONE (16:38)
--- NOTE | 2018-03-05 16:40 | Endo History and Physical ---
History & Physical Date of Service: Mar 05, 2018. Chief Complaint: melena Referring Physician: Dr Palma History of Present Illness for EGD Past Medical History Atrial Fibrillation, Diabetes, Male Genitourinary Prob., Cancer, High Cholesterol, Sleep Apnea, Syncopal Episodes, COPD, Thyroid Disease, Kidney Disease, Liver Disease Past Surgical History Hx Cardiac Surgery: Yes (CARDIOVERSION) Hx Post-Op Nausea and Vomiting: No Hx Cancer Surgery: Yes (COLON RESECTION WTIH ILEOSTOMY AND REVERSAL, LIVER RESECTION) Hx Thoracic Surgery: No Social History Smoking Status: Former Smoker Smokeless Tobacco Use: No Hx Substance Use: No Hx Alcohol Use: Yes (OCCASIONALLY) Allergies Coded Allergies: No Known Allergies (Unverified , 03/03/18) Current Medications Reported Home Medications Medications Dose Route/Sig Max Daily Dose Days Date Category Dose Instructions Toprol Xl (Metoprolol Succinate) 25 Mg Tabcr 12.5 Mg PO QPM 03/03/18 Reported Ventolin Hfa (Albuterol) 200 Puffs/38781 Mcg Aers 2-4 Puffs INH Q6H PRN 03/03/18 Reported Midodrine HCl (Midodrine) 10 Mg Tab 5 Mg PO 3XWK 01/01/18 Reported Before HD on HD days only. Coumadin (Warfarin Sodium) 2 Mg Tab 3 Mg PO WK 30 12/01/17 Reported Friday Symbicort 160-4.5 Mcg/Act (Budesonide/Formoterol Fumarate) 60 Puffs/Inhaler Aero 1 Puff INH DAILY PRN 01/07/17 Reported Spiriva Handihaler (Tiotropium [place]) 30 Puff/540 Mcg Aerp 1 Cap INH QPM 01/07/17 Reported Flomax (Tamsulosin Hcl) 0.4 Mg Cap 0.4 Mg PO QPM 12/20/16 Reported Sandostatin Lar Depot (Octreotide Acetate) 30 Mg Kit 30 Mg IM MONTHLY 07/05/16 Reported Phoslo 667 Mg (Calcium Acetate) 667 Mg Cap 1 Cap PO TID 30 07/11/15 Reported with food Loperamide Hcl 2 Mg Tab 2 Mg PO TID 06/12/15 Reported Lipitor (Atorvastatin Calcium) 10 Mg Tab 10 Mg PO HS 06/12/15 Reported Aspirin 81 (Aspirin) 81 Mg Tab 81 Mg PO QAM 06/12/15 Reported Coumadin (Warfarin Sodium) 2 Mg Tab 2 Mg PO 6XWK 06/12/15 Reported Vital Signs Weight (Kilograms): 104.900 Height (Feet): 5 Height (Inches): 10.00 Date Time Temp Pulse Resp B/P (MAP) Pulse Ox O2 Delivery O2 Flow Rate FiO2 03/05/18 15:54 36.5 120 16 107/67 (80) 97 Room Air 03/05/18 14:42 36.6 111 18 99/69 (79) 96 03/05/18 12:56 159 122/75 03/05/18 12:00 37.1 139 16 122/75 (91) 95 Room Air 03/05/18 11:19 108 16 95 Room Air 03/05/18 08:00 Room Air 03/05/18 07:09 98 16 95 Room Air 03/05/18 06:56 37.1 108 20 103/67 (79) 94 Room Air 03/05/18 03:40 36.5 108 18 105/66 (79) 95 Room Air 03/04/18 23:59 Room Air 03/04/18 23:38 36.7 118 18 100/66 (77) 95 Room Air 03/04/18 19:30 36.5 122 16 113/73 (86) 95 Room Air 03/04/18 19:08 100 18 97 Room Air 03/04/18 17:53 36.6 97 134/92 (106) 03/04/18 17:45 118 122/68 03/04/18 17:30 135 112/74 03/04/18 17:15 109 106/85 03/04/18 17:00 107 105/84 03/04/18 16:45 120 118/84 Physical Exam General Appearance: + obese Respiratory/Chest: Auscultation: decreased breath sounds Cardiovascular: Heart Auscultation: pertinent finding (A fib) Abdomen: Inspection & Palpation: soft Assessment and Plan Melena for EGD
--- NOTE | 2018-03-05 17:01 | Discharge Instructions ---
Endoscopy Patient Instructions Date / Procedure(s) Performed Mar 05, 2018. EGD Allergy Information Coded Allergies: No Known Allergies (Unverified , 03/03/18) Discharge Date / Findings Mar 05, 2018. GAVE Medication Instructions Restart Stopped Medication(s): resume meds Current Inpatient Medications Medications (Trade) Dose Ordered Sig/Carlos Route Start Time Stop Time Status Last Admin Dose Admin Ondansetron HCl (Zofran Inj) 4 mg Q6H PRN IV 03/03/18 21:30 04/02/18 21:29 Midodrine (Proamatine Tab) 5 mg MoWeFr@0800 PO 03/04/18 08:00 04/03/18 07:59 03/04/18 13:16 5 MG Tamsulosin HCl (Flomax Cap) 0.4 mg QPM PO 03/04/18 21:00 04/03/18 20:59 03/04/18 21:15 0.4 MG Miscellaneous Information (Order Awaiting Action) 1 ea QS N/A 03/04/18 08:00 04/03/18 07:59 Pantoprazole Sodium 40 mg/ Syringe 10 ml @ 5 mls/min DAILY@09,21 IV 03/04/18 09:00 04/03/18 08:59 03/05/18 07:50 5 MLS/MIN Albuterol/ Ipratropium (Duoneb) 3 ml QIDR INH 03/04/18 08:00 04/03/18 07:59 03/05/18 11:19 3 ML Metoprolol Succinate (Toprol Xl Tab) 12.5 mg BID PO 03/05/18 21:00 04/03/18 20:59 Epoetin Artur (Procrit Inj) 10,000 units TODAY@0600 IV. 03/06/18 06:00 03/06/18 23:59 Paricalcitol (Zemplar Inj) 3 mcg TODAY@0600 IV. 03/06/18 06:00 03/06/18 23:59 Cefazolin Sodium 15 ml @ 3.75 mls/ min PREOP IV 03/06/18 06:00 03/07/18 05:59 Provider Instructions Activity Restrictions - No exercising or heavy lifting for 24 hours. - Do not drink alcohol the day of the procedure. - Do not drive a car or operate machinery until the day after the procedure. - Do not make any important decisions or sign important papers in 24 hours after the procedure. Following Day: - Return to full activity which may include returning to work/school. Diet Start your diet with liquids and light foods (jello, soup, juice, toast). Then eat your usual diet if not nauseated. Treatment For Common After Affects For mild abdominal pain, bloating, or excessive gas: - Rest - Eat lightly - Lie on right side Follow-Up Information Follow-up with as scheduled Anesthesia Information What You Should Know You have had a procedure that required some medicine to reduce anxiety and discomfort. This treatment is called moderate sedation. After receiving the treatment, you may be sleepy, but you will be able to breathe on your own. The effects of the treatment may last for several hours. Follow these instructions along with Activity/Diet recommendations noted above: * Do NOT do anything where dizziness or clumsiness would be dangerous. * Rest quietly at home today, then you can be up and about tomorrow. * Have a responsible person stay with you the rest of today. * You may have had an I.V. today. If so, you may take the dressing off later today. Recommendations Call your doctor if: * Trouble breathing * Continuous vomiting for more than 24 hours * Temperature above 101 degrees * Severe abdominal pain or bloating * Pain not relieved by pain medicine ordered * There is increased drainage or redness from any incision * A large amount of rectal bleeding greater than 2-3 tablespoons. (If you had a polyp/s removed or have hemorrhoids, a small amount of blood - from the rectum is to be expected.) * You have any unanswered questions or concerns. IN THE EVENT OF A SERIOUS EMERGENCY, GO TO THE NEAREST EMERGENCY ROOM Your discharge instructions were prepared by provider Adin Tafoya. Patient Instructions Signature Page Freddy Lindsay Patient (or Guardian) Signature/Date: I have read and understand the instructions given to me by my caregivers. Caregiver/RN/Doctor Signature/Date: The above-named patient and/or guardian has received patient instructions on this date. + Original Patient Signature Page (only) stays with chart. Please make copy for patient.
--- NOTE | 2018-03-05 17:06 | GI REPORT ---
Patient Name: Freddy Lindsay Procedure Date: 03/05/2018 4:38 PM Date of : 1940 Admit Type: Inpatient Age: 77 Gender: Male Attending MD: Adin Tafoya MD Procedure: Upper GI endoscopy Providers: Adin Tafoya MD Referring MD: Janey Palma Indications: Melena Medicines: Propofol total dose 240 mg IV, Phenylephrine 100 mcg IV, Lidocaine 40 mg IV Complications: No immediate complications. Estimated Blood Loss: Estimated blood loss: none. Procedure: Pre-Anesthesia Assessment: - Prior to the procedure, a History and Physical was performed, and patient medications, allergies and sensitivities were reviewed. The patient's tolerance of previous anesthesia was reviewed. - The risks and benefits of the procedure and the sedation options and risks were discussed with the patient. All questions were answered and informed consent was obtained. After obtaining informed consent, the endoscope was passed under direct vision. Throughout the procedure, the patient's blood pressure, pulse, and oxygen saturations were monitored continuously. The scope was introduced through the mouth, and advanced to the second part of duodenum. The upper GI endoscopy was accomplished without difficulty. The patient tolerated the procedure well. Findings: The Z-line was regular and was found 44 cm from the incisors. A few stigmata of recent bleeding angioectasias were found in the gastric antrum. Fulguration to ablate the lesion to prevent bleeding by argon plasma at 0.3 liters/minute and 20 cardozo was successful. Estimated blood loss: none. The examined duodenum was normal. Impression: - Z-line regular, 44 cm from the incisors. 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 Treated with argon plasma coagulation (APC). - Normal examined duodenum. - No specimens collected. Recommendation: - Return patient to hospital abad for ongoing care. - Use sucralfate tablets 1 gram PO BID for 2 weeks. Adin Tafoya M.D. Adin Tafoya MD 03/05/2018 5:06:39 PM This report has been signed electronically. Note Initiated On: 03/05/2018 4:38 PM Number of Addenda: 0 I attest to the content of the Intraoperative Record and orders documented therein, exceptions below {[id number]}
--- NOTE | 2018-03-05 17:46 | PROGRESS NOTE ---
DATE: 03/05/2018 The patient reports no more abdominal pain or visible blood loss. His hemoglobin is remaining stable at 10 after 1 unit of blood. He underwent an EGD today after discussion with Dr. Deluna and that his cardiac echo showed a good ejection fraction. The patient tolerated the endoscopy without complications. The endoscopy was remarkable for gastric antral vascular ectasia. There was no active bleeding or visible blood in the stomach. The angioectasia was treated with argon plasma coagulation to reduce the risk for recurrent bleeding. The patient has gastric antral vascular ectasia, which was treated with argon plasma coagulation. I plan on treating him orally with Carafate 1 gram twice a day for the next 2 weeks to facilitate healing. If the patient has more bleeding or significant drop in blood pressure we may need to treat him again in the future.
--- NOTE | 2018-03-05 18:13 | Anesthesiology Progress Note ---
Anesthesia Post Op Note Date & Time Mar 05, 2018 at 18:12 Vital Signs Pain Intensity: 0.0 Vital Signs Past 12 Hours Date Time Temp Pulse Resp B/P (MAP) Pulse Ox O2 Delivery O2 Flow Rate FiO2 03/05/18 17:44 103 18 102/75 (84) 92 Room Air 03/05/18 17:43 115 18 102/75 (84) 95 Room Air 03/05/18 17:35 117 18 100/74 (83) 97 Room Air 03/05/18 17:32 117 18 91/73 (79) 97 Room Air 03/05/18 17:26 116 20 81/56 (64) 93 Room Air 03/05/18 17:15 119 18 85/54 (64) 97 Room Air 03/05/18 17:05 123 18 89/55 (66) 97 Room Air 03/05/18 15:54 36.5 120 16 107/67 (80) 97 Room Air 03/05/18 14:42 36.6 111 18 99/69 (79) 96 03/05/18 12:56 159 122/75 03/05/18 12:00 37.1 139 16 122/75 (91) 95 Room Air 03/05/18 11:19 108 16 95 Room Air 03/05/18 08:00 Room Air 03/05/18 07:09 98 16 95 Room Air 03/05/18 06:56 37.1 108 20 103/67 (79) 94 Room Air Notes Mental Status: alert / awake / arousable, participated in evaluation Pt Amnestic to Procedure: Yes Nausea / Vomiting: adequately controlled Pain: adequately controlled Airway Patency, RR, SpO2: stable & adequate BP & HR: stable & adequate Hydration State: stable & adequate Anesthetic Complications: no major complications apparent
[2018-03-05] MEDS: METOPROLOL SUCC 25MG EXT REL TAB PO SCH (20:26)
[2018-03-05] MEDS: SUCRALFATE 1 GM TAB PO SCH (20:26)
[2018-03-05] MEDS: TAMSULOSIN HCL 0.4 MG CAP PO SCH (20:26)
[2018-03-05] MEDS ORDERED: SODIUM CHLORIDE 0.9% 1000ML 1,000 ML IV STA (21:19)
[2018-03-05 21:36] LABS: HEMATOCRIT 28.9 % (42-52); HEMOGLOBIN 9.5 g/dL (14.0-18.0)
[2018-03-06] VITALS (27 sets, daily range): BP systolic 92–117; BP diastolic 47–71; PULSE 81–129; TEMP 36.7–37; O2SAT 93–97
[2018-03-06 05:47] LABS: HEMATOCRIT 28.1 % (42-52); HEMOGLOBIN 9.2 g/dL (14.0-18.0); MEAN CELL VOLUME 103.7 fL (80-100); MEAN CORPUSCULAR HEMOGLOBIN 33.9 pg (25-34); MEAN CORPUSCULAR HGB CONC 32.7 g/dl (32-36); MEAN PLATELET VOLUME 9.3 fL (7.4-10.4); PLATELET COUNT 139 K/uL (130-400); RED CELL DISTRIBUTION WIDTH CV 15.9 % (11.5-14.5); RED CELL DISTRIBUTION WIDTH SD 60.3 fL (36.4-46.3)
[2018-03-06] MEDS ORDERED: CEFAZOLIN 2000MG IV PUSH 15 ML IV SCH (06:00)
[2018-03-06] MEDS ORDERED: HEPARIN SOD (PORCINE) 1000 UNIT/ML 10 ML VIAL IV SCH ×2 (06:00)
[2018-03-06] MEDS ORDERED: EPOETIN ALFA 10,000 UNITS/ML VIAL IV. SCH (06:00)
[2018-03-06] MEDS ORDERED: PARICALCITOL 5 MCG/ML VIAL (ZEMPLAR) IV. SCH (06:00)
[2018-03-06 06:25] LABS: CREATININE 5.22 mg/dl (0.60-1.40); POTASSIUM 3.5 mmol/L (3.5-5.1)
--- NOTE | 2018-03-06 07:52 | Progress Note ---
Progress Note Date of Service Mar 06, 2018. Progress Note Patient for fistulogram today with possible intervention. I have discussed the risks options and benefits of the procedure with the patient. The patient understands the risks options and benefits and agrees to the procedure. I have examined the patient, reviewed the History & Physical and in the interval since the performance of the History & Physical I have noted the following changes of clinical significance: No changes noted
[2018-03-06] MEDS: ALBUT/IPRATROP 3MG/0.5MG NEB 3 ML VIAL INH SCH ×3 (07:54→16:00)
[2018-03-06] MEDS: METOPROLOL SUCC 25MG EXT REL TAB PO SCH ×2 (09:00→20:54)
[2018-03-06] MEDS: SUCRALFATE 1 GM TAB PO SCH ×2 (09:00→20:54)
--- NOTE | 2018-03-06 09:40 | Nephrology Progress Note ---
Nephrology Progress Note Date of Service Mar 06, 2018. Chief Complaint ESRD on IHD Subjective Mr. Lindsay was seen & examined in his hospital room this morning. He underwent EGD yesterday. 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 Patient has been placed on 2 weeks Carafate therapy. Mr. Lindsay denies abdominal pain or melena overnight. He is awaiting his fistulagram this morning. Review of Systems Constitutional: No fever Cardiovascular: No chest pain Respiratory: No dyspnea at rest Abdomen: No pain, No vomiting, No hematochezia, No melena Genitourinary - Male: No gross hematuria Extremities: No leg edema A complete review of systems was performed. Pertinent positives are noted above. All other systems are negative. Vital Signs Last 8 Hrs Date Time Temp Pulse Resp B/P (MAP) Pulse Ox O2 Delivery O2 Flow Rate FiO2 03/06/18 07:55 102 16 93 Room Air 03/06/18 06:50 36.7 117 18 98/64 (75) 93 Room Air 03/06/18 03:43 36.8 108 16 96/60 (72) 96 Nasal Cannula 2.0 03/06/18 03:32 102 Last Recorded Weight Weight (Kilograms): 105.700 Physical Exam General Appearance: no apparent distress Head: normocephalic, atraumatic Eyes: PERRL, EOMI Neck: no adenopathy Respiratory/Chest: lungs clear, no respiratory distress Cardiovascular: + irregularly irregular Abdomen/GI: normal bowel sounds, non tender, soft Extremities/Musculoskelatal: no pedal edema, + pertinent finding (AVF + bruit) Neurologic/Psych: alert, oriented x 3 Family History No pertinent family history Negative for CKD / ESRD Social History Smoking Status: Former smoker Smokeless Tobacco Use: No Alcohol Use: occasionally Drug Use: none Marital Status: , Housing Status: lives alone Occupation: retired . Retired. Former smoker Laboratory Results Past 24 Hours 03/05/18 21:25 03/06/18 05:16 03/06/18 05:16 Test 03/06/18 05:16 Red Blood Count 2.71 M/uL (4.7-6.1) Mean Corpuscular Volume 103.7 fL (80-100) Mean Corpuscular Hemoglobin 33.9 pg (25-34) Mean Corpuscular Hemoglobin Concent 32.7 g/dl (32-36) RDW Standard Deviation 60.3 fL (36.4-46.3) RDW Coefficient of Variation 15.9 % (11.5-14.5) Mean Platelet Volume 9.3 fL (7.4-10.4) Anion Gap 6.0 mmol/L (3-11) Est Creatinine Clear Calc Drug Dose 14.9 ml/min Estimated GFR () 11.5 Estimated GFR (Non- 9.9 BUN/Creatinine Ratio 8.0 (10-20) Calcium Level 7.0 mg/dl (8.5-10.1) Iron Level 51 mcg/dl (35-175) Transferrin 127 mg/dl (200-360) Transferrin % Saturation 28 % (20-50) Ferritin 675.5 ng/ml (8.0-388.0) Allergies Coded Allergies: No Known Allergies (Unverified , 03/03/18) Medications Current Inpatient Medications Medications (Trade) Dose Ordered Sig/Carlos Route Start Time Stop Time Status Last Admin Dose Admin Ondansetron HCl (Zofran Inj) 4 mg Q6H PRN IV 03/03/18 21:30 04/02/18 21:29 Midodrine (Proamatine Tab) 5 mg MoWeFr@0800 PO 03/04/18 08:00 04/03/18 07:59 03/04/18 13:16 5 MG Tamsulosin HCl (Flomax Cap) 0.4 mg QPM PO 03/04/18 21:00 04/03/18 20:59 03/05/18 20:26 0.4 MG Miscellaneous Information (Order Awaiting Action) 1 ea QS N/A 03/04/18 08:00 04/03/18 07:59 Pantoprazole Sodium 40 mg/ Syringe 10 ml @ 5 mls/min DAILY@,21 IV 03/04/18 09:00 04/03/18 08:59 03/05/18 20:25 5 MLS/MIN Albuterol/ Ipratropium (Duoneb) 3 ml QIDR INH 03/04/18 08:00 04/03/18 07:59 03/06/18 07:54 3 ML Metoprolol Succinate (Toprol Xl Tab) 12.5 mg BID PO 03/05/18 21:00 04/03/18 20:59 03/05/18 20:26 12.5 MG Epoetin Artur (Procrit Inj) 10,000 units TODAY@0600 IV. 03/06/18 06:00 03/06/18 23:59 Paricalcitol (Zemplar Inj) 3 mcg TODAY@0600 IV. 03/06/18 06:00 03/06/18 23:59 Cefazolin Sodium 15 ml @ 3.75 mls/ min PREOP IV 03/06/18 06:00 03/07/18 05:59 Sucralfate (Carafate Tab) 1 gm BID PO 03/05/18 21:00 04/04/18 20:59 03/05/18 20:26 1 GM Impression (1) Melena (2) ESRD (end stage renal disease) on dialysis (3) Neuroendocrine carcinoma metastatic to liver (4) Diabetes Recommendations END STAGE RENAL DISEASE: -- Heparin free HD this afternoon. Orders entered into EMR and HD RN notified VASCULAR ACCESS: -- Fistulogram this morning as per Vascular Surgery ANEMIA: -- Will provide DILCAI w/ HD -- Iron 28% w/ ferritin 685. Hold IV iron for now -- EGD results reviewed: antral ectasia s/p cautery CV: -- Chronic atrial fibrillation. On Metoprolol for rate control If discharge is anticipated, please have patient resume his MWF HD schedule at [facility] dialysis unit
[2018-03-06] MEDS ORDERED: MIDAZOLAM HCL 1 MG/ML 2ML VIAL ONE (09:42)
[2018-03-06] MEDS ORDERED: FENTANYL CITRATE INJ 50 MCG/1 ML 2 ML VIAL ONE (09:42)
--- NOTE | 2018-03-06 10:21 | Pre Sedation Assessment ---
Pre Sedation Assessment General Date of Sedation: Mar 06, 2018. Vital Signs Past 12 Hours Date Time Temp Pulse Resp B/P (MAP) Pulse Ox O2 Delivery O2 Flow Rate FiO2 03/06/18 08:00 Room Air 03/06/18 07:55 102 16 93 Room Air 03/06/18 06:50 36.7 117 18 98/64 (75) 93 Room Air 03/06/18 03:43 36.8 108 16 96/60 (72) 96 Nasal Cannula 2.0 03/06/18 03:32 102 03/06/18 01:25 112 03/06/18 00:00 Room Air 03/05/18 23:20 122 03/05/18 22:48 113 Review Cardiovascular: regular rate, rhythm, + irregularly irregular Lungs: lungs clear, no respiratory distress Pre-Sedation Airway Assessment Smoking Status: Former Smoker Hx of Sleep Apnea: No Short Thick Neck: No Thyro-mental Distance: > 3 Finger Breadths Oral Cavity: Dentures Mallampati Classification: Class II ASA Classification: Class III NPO Status Date of Last Intake of Fluids: Mar 05, 2018 Time of Last Intake of Fluids: 1700 Date of Last Intake of Solids: Mar 02, 2018 Time of Last Intake of Solids: 2000 Procedure Planning Contraindications for Sedation: None Current Medications Reviewed: Yes Notes The planned sedation has been discussed with the patient. Informed Consent was obtained. I have identified the patient, determined the appropriateness of sedation and have assessed the patient immediately prior to the procedure. All medicine(s) and interventions are by my order.
[2018-03-06] MEDS ORDERED: LIDOCAINE HCL 1% 20 ML VIAL INJ ONE (10:27)
[2018-03-06] MEDS ORDERED: MIDAZOLAM HCL 1 MG/ML 2ML VIAL IV ONE (10:33)
[2018-03-06] MEDS ORDERED: FENTANYL CITRATE INJ 50 MCG/1 ML 2 ML VIAL IV ONE (10:35)
[2018-03-06] MEDS ORDERED: OPTIRAY 300 IV ONE (10:53)
--- NOTE | 2018-03-06 11:10 | [facility] Post Operative Brief Note ---
Immediate Operative Summary Operative Date Mar 06, 2018. Pre-Operative Diagnosis Malfunctioning Fistula Post-Operative Diagnosis Malfunctioning Fistula Procedure(s) Performed Fistulogram Right Upper Arm Percutaneous Transluminal Angioplasty Peripheral Venous(Cephalic Vein) Percutaneous Transluminal Angioplasty Central Venous(Right Subclavian Vein) Moderate Sedation [id number] Surgeon Margaret Flexo Folder Gluer Operator Surgeon(s) Katerin Bravo MD Estimated Blood Loss 8 Findings Consistent with Post-Op Diagnosis Specimens None Anesthesia Type IV Sedat Cons RN Only Complication(s) none Disposition Accompanied Pt To Recover: no Disposition:
--- NOTE | 2018-03-06 11:13 | [facility] Operative Report ---
Operative Report Operative Date Mar 06, 2018. 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 He was having difficulty with prolonged bleeding following hemodialysis. Duplex ultrasound was done which showed no stenosis in the fistula. The risks and benefits of the fistulogram were explained to the patient and he elected to proceed. Description of Procedure The patient was brought to the angio suite and placed in the supine position with his right arm out. His forearm was prepped and draped in the usual sterile fashion. Preoperative antibiotics were administered. A palpable thrill could be felt over his fistula. Local anesthesia was administered. A percutaneous access site was selected and the fistula was accessed with a micropuncture kit. Fistulogram was then obtained, which showed webbing in his fistula outflow as well as stenosis in the subclavian vein just proximal to the SVC. The sheath was upsized to a 7 Ch[place] sheath. An 0.035 angled Glidewire was used cross the area of stenosis in the subclavian vein. A Conquest [id number] balloon was then used and inflated in the area of the stenosis. There was good recoil noted. Venogram was obtained which showed improvement in the area of stenosis but there was still a small stenosis. The balloon was reinserted and inflated again with good recoil. Venogram was repeated which showed improved flow. The balloon was then centered over the area of webbing in the fistula. The balloon was then inflated again with good recoil. A completion fistulogram was completed which showed improvement of flow through the fistula. A repeat fistulogram was completed which showed good distal flow the anastomosis. The sheath was removed and pressure was held with hemostasis achieved. The patient tolerated the procedure well and was transferred to the PACU in good condition with a palpable thrill over his right AV fistula and no complications. Dr. Robles was present for the entire procedure. I attest to the content of the Intraoperative Record and any orders documented therein. Any exceptions are noted below.
[2018-03-06] MEDS: PANTOprazole INJ 40 MG in SYRINGE 0 ML IV SCH ×2 (11:34→20:53)
[2018-03-06] MEDS: MIDODRINE 2.5 MG TAB PO SCH (11:36)
--- NOTE | 2018-03-06 14:36 | Family Medicine Progress Note ---
Progress Note Date of Service Mar 06, 2018. Subjective Pt evaluation today including: conversation w/ patient, physical exam, chart review, review of inpatient medication list Pain: Denies pain PO Intake: NPO from midnight for angioplasty today Voiding: no voiding problems Pt is feeling well. Has not had BM since scope yesterday, so is unsure if he has had any further dark stool. Otherwise has no complaints. Constitutional: No fever, No chills ENT: No hearing loss Respiratory: No cough, No wheezing, No shortness of breath Cardiovascular: No chest pain Abdomen: No pain, No diarrhea, No constipation, No GI bleeding Musculoskeletal: No joint pain, No muscle pain All Other Systems: Reviewed and Negative Medications Current Inpatient Medications Medications (Trade) Dose Ordered Sig/Carlos Route Start Time Stop Time Status Last Admin Dose Admin Ondansetron HCl (Zofran Inj) 4 mg Q6H PRN IV 03/03/18 21:30 04/02/18 21:29 Midodrine (Proamatine Tab) 5 mg MoWeFr@0800 PO 03/04/18 08:00 04/03/18 07:59 03/06/18 11:36 5 MG Tamsulosin HCl (Flomax Cap) 0.4 mg QPM PO 03/04/18 21:00 04/03/18 20:59 03/05/18 20:26 0.4 MG Miscellaneous Information (Order Awaiting Action) 1 ea QS N/A 03/04/18 08:00 04/03/18 07:59 Pantoprazole Sodium 40 mg/ Syringe 10 ml @ 5 mls/min DAILY@,21 IV 03/04/18 09:00 04/03/18 08:59 03/06/18 11:34 5 MLS/MIN Albuterol/ Ipratropium (Duoneb) 3 ml QIDR INH 03/04/18 08:00 04/03/18 07:59 03/06/18 07:54 3 ML Metoprolol Succinate (Toprol Xl Tab) 12.5 mg BID PO 03/05/18 21:00 04/03/18 20:59 03/05/18 20:26 12.5 MG Epoetin Artur (Procrit Inj) 10,000 units TODAY@0600 IV. 03/06/18 06:00 03/06/18 23:59 03/06/18 13:56 10,000 UNITS Paricalcitol (Zemplar Inj) 3 mcg TODAY@0600 IV. 03/06/18 06:00 03/06/18 23:59 03/06/18 13:56 3 MCG Cefazolin Sodium 15 ml @ 3.75 mls/ min PREOP IV 03/06/18 06:00 03/07/18 05:59 Sucralfate (Carafate Tab) 1 gm BID PO 03/05/18 21:00 04/04/18 20:59 03/05/18 20:26 1 GM Objective Vital Signs Date Time Temp Pulse Resp B/P (MAP) Pulse Ox O2 Delivery O2 Flow Rate FiO2 03/06/18 14:01 81 104/52 03/06/18 13:45 96 107/50 03/06/18 13:30 89 102/53 03/06/18 13:15 122 109/47 03/06/18 13:00 86 102/62 03/06/18 12:45 103 109/52 03/06/18 12:30 121 104/60 03/06/18 12:15 96 100/63 03/06/18 12:00 102 100/61 03/06/18 11:49 37.0 117 102/57 (72) 03/06/18 11:05 134 16 84/50 97 Room Air 03/06/18 11:00 123 16 99/72 98 Room Air 03/06/18 10:55 125 18 98/64 98 Oxymask 2 03/06/18 10:50 123 18 103/73 98 Oxymask 2 03/06/18 10:45 118 16 101/69 98 Oxymask 2 03/06/18 10:40 112 20 101/71 99 Oxymask 2 03/06/18 10:34 127 14 83/65 97 Oxymask 2 03/06/18 10:25 127 14 95/66 97 Oxymask 2 03/06/18 10:20 127 14 107/70 97 Oxymask 2 03/06/18 10:18 127 14 106/77 95 Oxymask 2 03/06/18 08:00 Room Air 03/06/18 07:55 102 16 93 Room Air 03/06/18 06:50 36.7 117 18 98/64 (75) 93 Room Air 03/06/18 03:43 36.8 108 16 96/60 (72) 96 Nasal Cannula 2.0 03/06/18 03:32 102 03/06/18 01:25 112 03/06/18 00:00 Room Air 03/05/18 23:20 122 03/05/18 22:48 113 03/05/18 22:15 36.8 128 18 99/63 (75) 96 Nasal Cannula 2.0 03/05/18 22:04 112 03/05/18 21:45 123 03/05/18 21:17 99/67 (78) 03/05/18 21:05 125 03/05/18 20:23 142 138/85 (102) 03/05/18 20:00 Room Air 03/05/18 19:46 112 16 91 Room Air 03/05/18 19:04 36.4 113 20 111/82 (92) 97 Room Air 03/05/18 18:10 36.8 76 18 120/81 (94) 96 Room Air 03/05/18 17:44 103 18 102/75 (84) 92 Room Air 03/05/18 17:43 115 18 102/75 (84) 95 Room Air 03/05/18 17:35 117 18 100/74 (83) 97 Room Air 03/05/18 17:32 117 18 91/73 (79) 97 Room Air 03/05/18 17:26 116 20 81/56 (64) 93 Room Air 03/05/18 17:15 119 18 85/54 (64) 97 Room Air 03/05/18 17:05 123 18 89/55 (66) 97 Room Air 03/05/18 15:54 36.5 120 16 107/67 (80) 97 Room Air 03/05/18 14:42 36.6 111 18 99/69 (79) 96 Physical Exam General Appearance: WD/WN, no apparent distress Eyes: EOMI, sclerae normal ENT: hearing grossly normal Neck: no carotid bruits, trachea midline Respiratory/Chest: lungs clear, no respiratory distress, no accessory muscle use, + decreased breath sounds Cardiovascular: no murmur, + tachycardia, + irregularly irregular Abdomen: normal bowel sounds, non tender, soft Extremities: normal inspection, no pedal edema, no calf tenderness Neurologic/Psychiatric: field technical assistant II-XII nml as tested, no motor/sensory deficits, alert, oriented x 3 Skin: normal color, warm/dry Laboratory Results Last Resulted 03/06/18 05:16 Last Resulted 03/06/18 05:16 Assessment and Plan Patient is a 77 year old male with a PMH of COPD, ESRD on dialysis, Afib, BPH and neuroendocrine tumor of the liver that presented to [facility] due to black tarry stools. Microcytic anemia secondary to GI bleed - Some ectasia on scope which were cauterized. Hb stable. - pantoprazole 40mg bid IV - Daily H&H - hold aspirin and warfarin, watch INR and close follow up with primary care after discharge. - Recommend restarting warfarin in 1 week. - 1U PRBC given on admission, hemoglobin responded appropriately - B12 and folate WNL Dyspnea, COPD - afib vs copd vs chf vs nstemi on differential - CXR shows chronic interstitial change, emphysema - troponin neg x 2 - duonebs q4 scheduled Afib - continue metoprolol (increased home dose of 12.5 to 12.5 BID), has required some IV lopressor for rate control - Given 20meq of potassium - TSH normal - warfarin and aspirin held; restart warfarin in 1 week. - follows with Dr. Deluna ESRD on dialysis - dialysis on Friday, Friday and Friday - continue calcium - consulted nephro for dialysis, HD set up for MWF. AVF patent - AV angioplasty performed 03/06/18 BPH - continue tamsulosin HLD - continue statin Neuroendocrine tumor of liver - patient receives octreotide injections once monthly - currently stable DVTP: contraindicated due to GI bleed Dispo: Transferred to med/surg, pt lives alone/PTOT evals. Patient has requested PCP transfer of care closer to his home near [place]. Discharge tomorrow. Code: DNR Resident Physician Supervision Note: I interviewed and examined the patient. Discussed with Dr. Pittman and agree with findings and plan as documented in the note. Any exceptions or clarifications are listed here: None Documented By: Adolph Jackson feeling better does not feel afib would like to go home vitals noted nad breathing unlabored no pallor or icterus GI bleeding in the setting of coumadin use with subtherapeutic but elevated- [id number] INR with acute blood loss anemia -given SOB resolved after transfusion - probably was symptomatic anemia -scopes yesterday - lesions cauterized -likely can resume coumadin 1-2 weeks w close f/u of INR/sx/CBC afib/RVR - probably got tachy from anemia, staying tachy due to arrhythmia - continue to titrate metoprolol -- asymptomatic fortunately ESRD - HD otherwise as above possibly home later today if able to walk steady and afib continues to improve. if not then hopefully home by tomorrow Resident Tracking Resident Involvement: Resident Care Provided Care Provided: Adult Hospital Medicine
[2018-03-06] MEDS ORDERED: METOPROLOL SUCC 25MG EXT REL TAB PO ONE (15:21)
--- NOTE | 2018-03-06 17:54 | GASTROENTEROLOGY PROGRESS NOTE ---
DATE: 03/06/2018 GASTROENTEROLOGY INPATIENT PROGRESS NOTE SUBJECTIVE: Chart reviewed. Patient examined. Patient with history of melena, on aspirin and Coumadin, lot of which was held. 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 In addition to Protonix, Carafate was added. Patient has chronic history of COPD, end-stage renal disease, metastatic neuroendocrine tumor, atrial fibrillation. Clinically, the patient is doing well. He is sitting at the bedside with a liquid diet. The patient denies any bowel movement today and this was corroborated with the nursing note. There is no description of melena. He received a total of 1 unit of packed red blood cells on March 04 at 1:00 a.m. Today's hemoglobin is 9.2. On admission lab was 9.0 and had drifted down slightly, following transfusion he was 10.0. LABORATORY STUDIES: His BUN and creatinine are markedly elevated. BUN 42, creatinine 5.22, potassium 3.5. Patient is surface antigen negative and hepatitis B surface antibody positive. INR yesterday was 1.2. His medication list was reviewed and includes Epogen, Zemplar, Ancef, Carafate, Flomax, pantoprazole, midodrine. PHYSICAL EXAMINATION: VITAL SIGNS: Blood pressure 111/69, respirations 20, heart rate 110; afebrile, 36.8; 97% on room air. GENERAL: Patient is awake, alert and oriented x3. HEENT: Sclerae are anicteric, conjunctiva moist. Oral mucosa moist. HEART: Normal S1, S2. LUNGS: Clear to auscultation. ABDOMEN: Soft, flat, nontender, nondistended with positive bowel sounds. EXTREMITIES: Without edema. RECTAL: Deferred. IMPRESSION AND PLAN: Patient with melena on anticoagulation with an INR of 1.8 on admission, 03/03/2018. Arteriovenous malformations were present. There has been no further bleeding and overall the hemoglobin has remained stable. Would continue PPI and Carafate. Follow hemoglobin serially. If bleeding were to recur, depending on clinical status and volume, I consider a tagged red blood cell scan. Dr. Abbott will be covering this weekend. All questions answered for the patient. [facility]
[2018-03-06] MEDS: TAMSULOSIN HCL 0.4 MG CAP PO SCH (20:54)
[2018-03-07] VITALS (10 sets, daily range): BP systolic 94–111; BP diastolic 51–70; PULSE 91–154; TEMP 36.7–36.9; O2SAT 91–100
[2018-03-07] MEDS: ALBUT/IPRATROP 3MG/0.5MG NEB 3 ML VIAL INH SCH ×3 (07:02→19:15)
[2018-03-07 07:34] LABS: HEMATOCRIT 28.8 % (42-52); HEMOGLOBIN 9.6 g/dL (14.0-18.0); MEAN CELL VOLUME 102.1 fL (80-100); MEAN CORPUSCULAR HGB CONC 33.3 g/dl (32-36); MEAN PLATELET VOLUME 9.4 fL (7.4-10.4); PLATELET COUNT 140 K/uL (130-400); RED CELL DISTRIBUTION WIDTH CV 15.6 % (11.5-14.5); RED CELL DISTRIBUTION WIDTH SD 57.9 fL (36.4-46.3); WHITE BLOOD COUNT 5.65 K/uL (4.8-10.8)
[2018-03-07 08:06] LABS: CALCIUM 7.2 mg/dl (8.5-10.1); CREATININE 3.84 mg/dl (0.60-1.40); POTASSIUM 3.1 mmol/L (3.5-5.1)
[2018-03-07] MEDS: METOPROLOL SUCC 25MG EXT REL TAB PO SCH ×2 (09:00→20:29)
[2018-03-07] MEDS: PANTOprazole INJ 40 MG in SYRINGE 0 ML IV SCH (09:07)
[2018-03-07] MEDS: SUCRALFATE 1 GM TAB PO SCH ×2 (09:08→20:29)
--- NOTE | 2018-03-07 11:21 | Nephrology Progress Note ---
Nephrology Progress Note Date of Service Mar 07, 2018. Chief Complaint ESRD Subjective No acute events overnight. No additional signs of GIB bleeding. No melena this morning. Appetite is good. Freddy was asking to advance his diet. He feels well and hopes to be discharged home soon. Review of Systems A complete review of systems was performed. Pertinent positives are noted above. All other systems are negative. Vital Signs Last 8 Hrs Date Time Temp Pulse Resp B/P (MAP) Pulse Ox O2 Delivery O2 Flow Rate FiO2 03/07/18 09:00 Room Air 03/07/18 07:03 105 14 96 Room Air 03/07/18 06:47 36.7 103 18 95/51 (66) 94 Room Air 03/07/18 03:14 36.9 104 20 104/65 (78) 91 Room Air Last Recorded Weight Weight (Kilograms): 103.800 Physical Exam General Appearance: WD/WN, no apparent distress Head: normocephalic, atraumatic Eyes: normal inspection, sclerae normal ENT: normal ENT inspection, pharynx normal Neck: supple, no JVD Respiratory/Chest: lungs clear, no respiratory distress, no accessory muscle use Cardiovascular: regular rate, rhythm, + systolic murmur Abdomen/GI: non tender, soft Extremities/Musculoskelatal: normal inspection, no pedal edema, + pertinent finding (AVF with thrill and bruit) Neurologic/Psych: alert, normal mood/affect Family History No pertinent family history Negative for CKD / ESRD Social History Smoking Status: Former smoker Smokeless Tobacco Use: No Alcohol Use: occasionally Drug Use: none Marital Status: , Housing Status: lives alone Occupation: retired . Retired. Former smoker Laboratory Results Past 24 Hours 03/07/18 07:19 03/07/18 07:19 Test 03/07/18 07:19 Red Blood Count 2.82 M/uL (4.7-6.1) Mean Corpuscular Volume 102.1 fL (80-100) Mean Corpuscular Hemoglobin 34.0 pg (25-34) Mean Corpuscular Hemoglobin Concent 33.3 g/dl (32-36) RDW Standard Deviation 57.9 fL (36.4-46.3) RDW Coefficient of Variation 15.6 % (11.5-14.5) Mean Platelet Volume 9.4 fL (7.4-10.4) Anion Gap 7.0 mmol/L (3-11) Est Creatinine Clear Calc Drug Dose 20.1 ml/min Estimated GFR () 16.7 Estimated GFR (Non- 14.4 BUN/Creatinine Ratio 5.1 (10-20) Calcium Level 7.2 mg/dl (8.5-10.1) Allergies Coded Allergies: No Known Allergies (Unverified , 03/03/18) Medications Current Inpatient Medications Medications (Trade) Dose Ordered Sig/Carlos Route Start Time Stop Time Status Last Admin Dose Admin Ondansetron HCl (Zofran Inj) 4 mg Q6H PRN IV 03/03/18 21:30 04/02/18 21:29 Midodrine (Proamatine Tab) 5 mg MoWeFr@0800 PO 03/04/18 08:00 04/03/18 07:59 03/06/18 11:36 5 MG Tamsulosin HCl (Flomax Cap) 0.4 mg QPM PO 03/04/18 21:00 04/03/18 20:59 03/06/18 20:54 0.4 MG Miscellaneous Information (Order Awaiting Action) 1 ea QS N/A 03/04/18 08:00 04/03/18 07:59 Pantoprazole Sodium 40 mg/ Syringe 10 ml @ 5 mls/min DAILY@ IV 03/04/18 09:00 04/03/18 08:59 03/07/18 09:07 5 MLS/MIN Albuterol/ Ipratropium (Duoneb) 3 ml QIDR INH 03/04/18 08:00 04/03/18 07:59 03/07/18 07:02 3 ML Sucralfate (Carafate Tab) 1 gm BID PO 03/05/18 21:00 04/04/18 20:59 03/07/18 09:08 1 GM Metoprolol Succinate (Toprol Xl Tab) 25 mg BID PO 03/06/18 21:00 04/03/18 20:59 03/06/18 20:54 25 MG Impression (1) Melena (2) ESRD (end stage renal disease) on dialysis (3) Neuroendocrine carcinoma metastatic to liver (4) Diabetes Recommendations END STAGE RENAL DISEASE: -- Tolerated HD yesterday, UF 1.7 L -- BP and volume status appropriate -- Metabolic profile acceptable -- Plan next HD for Friday per schedule VASCULAR ACCESS: -- Fistulogram performed yesterday by Dr. 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 On Metoprolol for rate control If discharge is anticipated, please have patient resume his MWF HD schedule at [facility] dialysis unit
[2018-03-07] MEDS ORDERED: AMIODARONE 200 MG TAB PO ONE (11:45)
--- NOTE | 2018-03-07 12:44 | Gastroenterology Progress Note ---
Progress Note Date of Service: Mar 07, 2018 Subjective Pt evaluation today including: conversation w/ patient, physical exam, chart review, review of studies, review of inpatient medication list cc f/u GI bleeding HPI Pt denies abd pain. States he had a brown stool this am. Review of Systems Respiratory: No shortness of breath Cardiac: No chest pain Medications Current Inpatient Medications Medications (Trade) Dose Ordered Sig/Carlos Route Start Time Stop Time Status Last Admin Dose Admin Ondansetron HCl (Zofran Inj) 4 mg Q6H PRN IV 03/03/18 21:30 04/02/18 21:29 Midodrine (Proamatine Tab) 5 mg MoWeFr@0800 PO 03/04/18 08:00 04/03/18 07:59 03/06/18 11:36 5 MG Tamsulosin HCl (Flomax Cap) 0.4 mg QPM PO 03/04/18 21:00 04/03/18 20:59 03/06/18 20:54 0.4 MG Miscellaneous Information (Order Awaiting Action) 1 ea QS N/A 03/04/18 08:00 04/03/18 07:59 Pantoprazole Sodium 40 mg/ Syringe 10 ml @ 5 mls/min DAILY@,21 IV 03/04/18 09:00 04/03/18 08:59 03/07/18 09:07 5 MLS/MIN Albuterol/ Ipratropium (Duoneb) 3 ml QIDR INH 03/04/18 08:00 04/03/18 07:59 03/07/18 07:02 3 ML Sucralfate (Carafate Tab) 1 gm BID PO 03/05/18 21:00 04/04/18 20:59 03/07/18 09:08 1 GM Metoprolol Succinate (Toprol Xl Tab) 25 mg BID PO 03/06/18 21:00 04/03/18 20:59 03/06/18 20:54 25 MG Amiodarone HCl (Cordarone Tab) 200 mg BID PO 03/07/18 21:00 04/06/18 20:59 Objective Vital Signs Date Time Temp Pulse Resp B/P (MAP) Pulse Ox O2 Delivery O2 Flow Rate FiO2 03/07/18 10:47 36.8 91 18 94/61 (72) 98 Room Air 03/07/18 09:00 Room Air 03/07/18 07:03 105 14 96 Room Air 03/07/18 06:47 36.7 103 18 95/51 (66) 94 Room Air 03/07/18 03:14 36.9 104 20 104/65 (78) 91 Room Air 03/07/18 00:03 Room Air 03/06/18 23:19 36.8 103 20 101/59 (73) 95 Room Air 03/06/18 20:03 37.0 129 22 105/71 (82) 97 Room Air 03/06/18 20:00 Room Air 03/06/18 17:58 102 14 95 Room Air 03/06/18 16:33 36.8 110 20 111/69 (83) 97 Room Air 03/06/18 16:16 36.9 114 111/61 (78) 03/06/18 15:45 106 117/54 03/06/18 15:30 106 113/55 03/06/18 15:15 96 107/51 03/06/18 15:00 108 101/60 03/06/18 14:45 107 92/60 03/06/18 14:30 94 94/50 03/06/18 14:15 116 95/58 03/06/18 14:01 81 104/52 03/06/18 13:45 96 107/50 03/06/18 13:30 89 102/53 03/06/18 13:15 122 109/47 03/06/18 13:00 86 102/62 03/06/18 12:45 103 109/52 Physical Exam General Appearance: WD/WN, no apparent distress Respiratory/Chest: lungs clear, no respiratory distress Cardiovascular: no edema, no murmur Abdomen: normal bowel sounds, non tender, soft Neurologic/Psych: normal mood/affect, oriented x 3 Skin: normal color, warm/dry Laboratory Results Last 24 Hours Test 03/07/18 07:19 White Blood Count 5.65 K/uL Red Blood Count 2.82 M/uL Hemoglobin 9.6 g/dL Hematocrit 28.8 % Mean Corpuscular Volume 102.1 fL Mean Corpuscular Hemoglobin 34.0 pg Mean Corpuscular Hemoglobin Concent 33.3 g/dl RDW Standard Deviation 57.9 fL RDW Coefficient of Variation 15.6 % Platelet Count 140 K/uL Mean Platelet Volume 9.4 fL Sodium Level 134 mmol/L Potassium Level 3.1 mmol/L Chloride Level 101 mmol/L Carbon Dioxide Level 26 mmol/L Anion Gap 7.0 mmol/L Blood Urea Nitrogen 19 mg/dl Creatinine 3.84 mg/dl Est Creatinine Clear Calc Drug Dose 20.1 ml/min Estimated GFR () 16.7 Estimated GFR (Non- 14.4 BUN/Creatinine Ratio 5.1 Random Glucose 137 mg/dl Calcium Level 7.2 mg/dl Assessment and Plan melena--from bleeding 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 Continue carafate, Switch to po protonix. antral AVMs--s/p APC anemia--stable. Agree with advancing to solid diet.
--- NOTE | 2018-03-07 15:28 | Family Medicine Progress Note ---
Progress Note Date of Service Mar 07, 2018. Subjective Pt evaluation today including: conversation w/ patient, conversation w/ family , physical exam, chart review, lab review, review of studies Patient is eager to go home and advance diet. Denies feeling palpitations with afib with rvr. Denies CP, SOB. Constitutional: No fever, No chills, No sweats Respiratory: No cough, No sputum, No wheezing, No shortness of breath, No dyspnea on exertion Cardiovascular: No chest pain, No orthopnea, No edema, No claudication Abdomen: No pain, No nausea, No vomiting, No diarrhea, No constipation Male : No dysuria, No urinary frequency, No incontinence, No nocturia more than once/night, No slowing stream Medications Current Inpatient Medications Medications (Trade) Dose Ordered Sig/Carlos Route Start Time Stop Time Status Last Admin Dose Admin Ondansetron HCl (Zofran Inj) 4 mg Q6H PRN IV 03/03/18 21:30 04/02/18 21:29 Midodrine (Proamatine Tab) 5 mg MoWeFr@0800 PO 03/04/18 08:00 04/03/18 07:59 03/06/18 11:36 5 MG Tamsulosin HCl (Flomax Cap) 0.4 mg QPM PO 03/04/18 21:00 04/03/18 20:59 03/06/18 20:54 0.4 MG Miscellaneous Information (Order Awaiting Action) 1 ea QS N/A 03/04/18 08:00 04/03/18 07:59 Albuterol/ Ipratropium (Duoneb) 3 ml QIDR INH 03/04/18 08:00 04/03/18 07:59 03/07/18 07:02 3 ML Sucralfate (Carafate Tab) 1 gm BID PO 03/05/18 21:00 04/04/18 20:59 03/07/18 09:08 1 GM Metoprolol Succinate (Toprol Xl Tab) 25 mg BID PO 03/06/18 21:00 04/03/18 20:59 03/06/18 20:54 25 MG Amiodarone HCl (Cordarone Tab) 200 mg BID PO 03/07/18 21:00 04/06/18 20:59 Pantoprazole Sodium (Protonix Tab) 40 mg BID@0700,1615 PO 03/07/18 16:15 04/06/18 16:14 Objective Vital Signs Date Time Temp Pulse Resp B/P (MAP) Pulse Ox O2 Delivery O2 Flow Rate FiO2 03/07/18 10:47 36.8 91 18 94/61 (72) 98 Room Air 03/07/18 09:00 Room Air 03/07/18 07:03 105 14 96 Room Air 03/07/18 06:47 36.7 103 18 95/51 (66) 94 Room Air 03/07/18 03:14 36.9 104 20 104/65 (78) 91 Room Air 03/07/18 00:03 Room Air 03/06/18 23:19 36.8 103 20 101/59 (73) 95 Room Air 03/06/18 20:03 37.0 129 22 105/71 (82) 97 Room Air 03/06/18 20:00 Room Air 03/06/18 17:58 102 14 95 Room Air 03/06/18 16:33 36.8 110 20 111/69 (83) 97 Room Air 03/06/18 16:16 36.9 114 111/61 (78) 03/06/18 15:45 106 117/54 03/06/18 15:30 106 113/55 Physical Exam General Appearance: WD/WN, no apparent distress Neck: supple, no adenopathy, thyroid normal Respiratory/Chest: chest non-tender, lungs clear, normal breath sounds, no respiratory distress Cardiovascular: no edema, no murmur, + tachycardia, + irregularly irregular Abdomen: normal bowel sounds, non tender, no organomegaly Extremities: non-tender, normal inspection, + pedal edema (+2) Neurologic/Psychiatric: alert, normal mood/affect, oriented x 3 Skin: normal color, warm/dry, no rash Laboratory Results 03/07/18 07:19 03/07/18 07:19 Test 03/07/18 07:19 Red Blood Count 2.82 M/uL (4.7-6.1) Mean Corpuscular Volume 102.1 fL (80-100) Mean Corpuscular Hemoglobin 34.0 pg (25-34) Mean Corpuscular Hemoglobin Concent 33.3 g/dl (32-36) RDW Standard Deviation 57.9 fL (36.4-46.3) RDW Coefficient of Variation 15.6 % (11.5-14.5) Mean Platelet Volume 9.4 fL (7.4-10.4) Anion Gap 7.0 mmol/L (3-11) Est Creatinine Clear Calc Drug Dose 20.1 ml/min Estimated GFR () 16.7 Estimated GFR (Non- 14.4 BUN/Creatinine Ratio 5.1 (10-20) Calcium Level 7.2 mg/dl (8.5-10.1) Assessment and Plan Patient is a 77 year old male with a PMH of COPD, ESRD on dialysis, Afib, BPH and neuroendocrine tumor of the liver that presented to [facility] due to black tarry stools. Microcytic anemia secondary to GI bleed - Some ectasia on scope which were cauterized. Hb stable. - GI following; cont Carafate and PO ppi - Advancing to heart healthy diet today - Daily H&H, hold aspirin and warfarin, watch INR and close follow up with primary care after discharge. - Recommend restarting warfarin in 1 week. - 1U PRBC given on admission, hemoglobin responded appropriately - B12 and folate WNL Afib with RVR - Tried to lower rates with increasing Lopressor, but BP could not tolerate - Cardiology consulted, appreciate recommendations - Started Amiodarone 200 mg BID - Given 20meq of potassium - TSH normal - warfarin and aspirin held; restart warfarin in 1 week. - follows with Dr. Deluna Dyspnea, COPD - afib vs copd vs chf vs nstemi on differential - CXR shows chronic interstitial change, emphysema - troponin neg x 2 - duonebs q4 scheduled ESRD on dialysis - dialysis on Friday, Friday and Friday - continue calcium - consulted nephro for dialysis, HD set up for MWF. AVF patent - AV angioplasty performed 03/06/18 BPH - continue tamsulosin HLD - continue statin Neuroendocrine tumor of liver - patient receives octreotide injections once monthly - currently stable DVTP: contraindicated due to GI bleed Dispo: pt lives alone/PTOT evals. Patient has requested PCP transfer of care closer to his home near [place]. Code: DNR
[2018-03-07] MEDS: PANTOprazole SOD 40 MG TAB PO SCH (16:39)
--- NOTE | 2018-03-07 18:49 | Cardiology Consultation ---
Cardiology Consultation Date of Consultation: Mar 07, 2018. Requesting Physician: Halle Reason for Consultation: Atrial fibrillation Pt evaluation today including: conversation w/ patient, physical exam, chart review, lab review, review of studies, review of inpatient medication list History of Present Illness Patient is a 77-year-old gentleman admitted to [facility] for gastrointestinal hemorrhage associated anemia. He has extensive medical history , and is known to have atrial fibrillation. Seems that the patient has permanent atrial fibrillation at this time. In the past he was treated both with metoprolol and amiodarone. According to his record he may have experienced some toxicity associated with amiodarone to involve hyperthyroidism and possibly lung toxicity. Recently the patient has become more short of breath. He was discovered to be anemic and did report black tarry stools. Evaluation here in the hospital revealed gastrointestinal AVMs which were cauterized. The patient also underwent blood transfusion. He states he is feeling better and actually tolerated a regular diet today. He states on an outpatient basis he does become dyspneic with activity. This is longstanding in nature and only recently became somewhat worse. He denies dizziness or lightheadedness. He has not describe syncope. He is aware of palpitations on occasion but these generally fleeting occur only at rest. He denies breathing difficulty currently. He has been ambulatory around his room with minimal symptoms. He did not describe dizziness or lightheadedness during this hospitalization. 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 Overall feeling better. He denies edema. He does not report any trouble with dialysis. All Other Systems: Reviewed and Negative Allergies Coded Allergies: No Known Allergies (Unverified , 03/03/18) Medications Current Inpatient Medications Medications (Trade) Dose Ordered Sig/Carlos Route Start Time Stop Time Status Last Admin Dose Admin Ondansetron HCl (Zofran Inj) 4 mg Q6H PRN IV 03/03/18 21:30 04/02/18 21:29 Midodrine (Proamatine Tab) 5 mg MoWeFr@0800 PO 03/04/18 08:00 04/03/18 07:59 03/06/18 11:36 5 MG Tamsulosin HCl (Flomax Cap) 0.4 mg QPM PO 03/04/18 21:00 04/03/18 20:59 03/06/18 20:54 0.4 MG Miscellaneous Information (Order Awaiting Action) 1 ea QS N/A 03/04/18 08:00 04/03/18 07:59 Albuterol/ Ipratropium (Duoneb) 3 ml QIDR INH 03/04/18 08:00 04/03/18 07:59 03/07/18 15:19 3 ML Sucralfate (Carafate Tab) 1 gm BID PO 03/05/18 21:00 04/04/18 20:59 03/07/18 09:08 1 GM Metoprolol Succinate (Toprol Xl Tab) 25 mg BID PO 03/06/18 21:00 04/03/18 20:59 03/06/18 20:54 25 MG Amiodarone HCl (Cordarone Tab) 200 mg BID PO 03/07/18 21:00 04/06/18 20:59 Pantoprazole Sodium (Protonix Tab) 40 mg BID@0700,1615 PO 03/07/18 16:15 04/06/18 16:14 03/07/18 16:39 40 MG Physical Exam Vital Signs Past 12 Hours Date Time Temp Pulse Resp B/P (MAP) Pulse Ox O2 Delivery O2 Flow Rate FiO2 03/07/18 16:00 Room Air 03/07/18 15:22 36.7 104 19 108/69 (82) 100 Nebulizer 03/07/18 15:19 118 14 96 Room Air 03/07/18 10:47 36.8 91 18 94/61 (72) 98 Room Air 03/07/18 09:00 Room Air 03/07/18 07:03 105 14 96 Room Air 03/07/18 06:47 36.7 103 18 95/51 (66) 94 Room Air Lungs: Auscultation: decreased breath sounds Abdomen: Inspection & Palpation: soft The patient is alert and oriented. Mood and affect appeared normal. He answered all questions appropriately. HEENT: Pupils are equal and reactive to light and accommodation. Extraocular movements are intact. The sclerae are anicteric. Neuro: Cranial nerves intact Neck: Patient's neck is supple. He has palpable carotid pulses bilaterally without bruits on auscultation. There is no evidence of jugular venous distention. The thyroid is not enlarged. Lungs: Clear to auscultation bilaterally. He has good air movement without use of accessory muscles. No rales wheezes or rhonchi. Cardiac: Heart demonstrates an irregular rate and rhythm. Normal S1 and S2. No murmurs on examination. Pulses: The patient has palpable radial pulses bilaterally that are equal in intensity Extremities: There was no evidence of hypoperfusion. There is no cyanosis or clubbing. There is no edema. AV fistula in the right antecubital area. Palpable thrill Skin: I did not appreciate any rashes on examination today. Data Laboratory Results: Last 24 Hours Test 03/07/18 07:19 White Blood Count 5.65 K/uL Red Blood Count 2.82 M/uL Hemoglobin 9.6 g/dL Hematocrit 28.8 % Mean Corpuscular Volume 102.1 fL Mean Corpuscular Hemoglobin 34.0 pg Mean Corpuscular Hemoglobin Concent 33.3 g/dl RDW Standard Deviation 57.9 fL RDW Coefficient of Variation 15.6 % Platelet Count 140 K/uL Mean Platelet Volume 9.4 fL Sodium Level 134 mmol/L Potassium Level 3.1 mmol/L Chloride Level 101 mmol/L Carbon Dioxide Level 26 mmol/L Anion Gap 7.0 mmol/L Blood Urea Nitrogen 19 mg/dl Creatinine 3.84 mg/dl Est Creatinine Clear Calc Drug Dose 20.1 ml/min Estimated GFR () 16.7 Estimated GFR (Non- 14.4 BUN/Creatinine Ratio 5.1 Random Glucose 137 mg/dl Calcium Level 7.2 mg/dl Imaging: Chest x-ray obtained at the time of admission did not reveal any acute cardiopulmonary process EKG: Atrial fibrillation with rapid ventricular response Telemetry reviewed: Atrial fibrillation with rapid ventricular response Assessment & Plan 1. Atrial fibrillation: Patient apparently has a long history of atrial fibrillation and has been treated with amiodarone in the past. It seems he may have had a period of sinus rhythm until February of this year by his report. He has some symptoms associated with atrial fibrillation to include transient palpitations at rest. He may have some symptoms associated with a high ventricular rates with exertion. Assessment is complicated by his underlying lung disease. Nonetheless, he appears to have suboptimal rate control on his current medical regimen. His heart rates have been high since his admission without significant change despite transfusion and what appears to be euvolemia. Efforts to increase his rate control medications have been frustrated by relative hypotension. Patient is not appear to have symptoms consistent with orthostatic hypotension however. He was restarted on amiodarone today but I think this is a poor choice in the long run. He may have had some toxicity in the past and there has been some concern over lung toxicity of amiodarone according to some records. Would favor more aggressive rate control with traditional agents such as his continued beta-zach and addition of diltiazem. While I do not have an echocardiogram to confirm a structurally normal heart, he does not recognize the diagnosis of congestive heart failure or cardiomyopathy. And his chart does not suggest he has these diagnoses. Could obtain records from his primary family therapist's office in order to confirm this, but I think a trial of low-dose calcium channel zach is worthwhile. If he truly cannot tolerate or rate control agents due to persistent hypotension he would appear to be a reasonable candidate for ablate and pace treatment. This would involve ablation of the AV node and implantation of a permanent pacemaker. Given the duration of his atrial fibrillation unlikely that a rhythm control strategy would be satisfactory in the long run.
[2018-03-07] MEDS: TAMSULOSIN HCL 0.4 MG CAP PO SCH (20:29)
[2018-03-07] MEDS ORDERED: AMIODARONE 200 MG TAB PO SCH (21:00)
[2018-03-08] VITALS (10 sets, daily range): BP systolic 96–105; BP diastolic 58–68; PULSE 75–122; TEMP 36.6–37.7; O2SAT 92–98
[2018-03-08 05:58] LABS: BASO % 0.3 %; BASO ABS # 0.02 K/uL (0-0.2); EOS % 3.2 %; EOS ABS # 0.19 K/uL (0-0.5); HEMATOCRIT 31.2 % (42-52); HEMOGLOBIN 10.1 g/dL (14.0-18.0); IG# 0.02 K/uL (0.00-0.02); LYMPH % 28.2 %; LYMPH ABS # 1.69 K/uL (1.2-3.4); MEAN CELL VOLUME 101.6 fL (80-100); MEAN CORPUSCULAR HEMOGLOBIN 32.9 pg (25-34); MEAN CORPUSCULAR HGB CONC 32.4 g/dl (32-36); MEAN PLATELET VOLUME 9.4 fL (7.4-10.4); MONO % 8.7 %; MONO ABS # 0.52 K/uL (0.11-0.59); NEUT % 59.3 %; NEUT ABS # 3.55 K/uL (1.4-6.5); PLATELET COUNT 156 K/uL (130-400); RED CELL DISTRIBUTION WIDTH CV 15.6 % (11.5-14.5); RED CELL DISTRIBUTION WIDTH SD 56.8 fL (36.4-46.3); WHITE BLOOD COUNT 5.99 K/uL (4.8-10.8)
[2018-03-08 06:55] LABS: CALCIUM 7.4 mg/dl (8.5-10.1); CREATININE 5.71 mg/dl (0.60-1.40); POTASSIUM 3.2 mmol/L (3.5-5.1)
[2018-03-08] MEDS: ALBUT/IPRATROP 3MG/0.5MG NEB 3 ML VIAL INH SCH ×4 (07:01→19:01)
[2018-03-08] MEDS: DILTIAZEM HCL 30 MG TAB PO SCH ×3 (09:12→21:04)
[2018-03-08] MEDS: SUCRALFATE 1 GM TAB PO SCH ×2 (09:13→21:04)
[2018-03-08] MEDS: METOPROLOL SUCC 25MG EXT REL TAB PO SCH ×2 (09:13→21:04)
[2018-03-08] MEDS: PANTOprazole SOD 40 MG TAB PO SCH ×2 (09:14→16:39)
--- NOTE | 2018-03-08 09:41 | Family Medicine Progress Note ---
Progress Note Date of Service Mar 08, 2018. Subjective Pt evaluation today including: conversation w/ patient, conversation w/ family , physical exam, chart review, lab review Patient is doing well. Endorses some SOB with ambulation. Constitutional: No fever, No chills, No sweats Respiratory: + shortness of breath, + dyspnea on exertion, No cough, No sputum, No wheezing Cardiovascular: No chest pain, No orthopnea, No palpitations Abdomen: No pain, No nausea, No vomiting, No diarrhea Male : No dysuria Medications Current Inpatient Medications Medications (Trade) Dose Ordered Sig/Carlos Route Start Time Stop Time Status Last Admin Dose Admin Ondansetron HCl (Zofran Inj) 4 mg Q6H PRN IV 03/03/18 21:30 04/02/18 21:29 Midodrine (Proamatine Tab) 5 mg MoWeFr@0800 PO 03/04/18 08:00 04/03/18 07:59 03/06/18 11:36 5 MG Tamsulosin HCl (Flomax Cap) 0.4 mg QPM PO 03/04/18 21:00 04/03/18 20:59 03/07/18 20:29 0.4 MG Miscellaneous Information (Order Awaiting Action) 1 ea QS N/A 03/04/18 08:00 04/03/18 07:59 Albuterol/ Ipratropium (Duoneb) 3 ml QIDR INH 03/04/18 08:00 04/03/18 07:59 03/08/18 07:01 3 ML Sucralfate (Carafate Tab) 1 gm BID PO 03/05/18 21:00 04/04/18 20:59 03/08/18 09:13 1 GM Pantoprazole Sodium (Protonix Tab) 40 mg BID@0700,1615 PO 03/07/18 16:15 04/06/18 16:14 03/08/18 09:14 40 MG Metoprolol Succinate (Toprol Xl Tab) 12.5 mg BID PO 03/08/18 09:00 04/03/18 20:59 03/08/18 09:13 12.5 MG Diltiazem HCl (Cardizem Tab) 30 mg TID PO 03/08/18 09:00 04/07/18 08:59 03/08/18 09:12 30 MG Objective Vital Signs Date Time Temp Pulse Resp B/P (MAP) Pulse Ox O2 Delivery O2 Flow Rate FiO2 03/08/18 07:02 91 16 92 Room Air 03/08/18 06:48 37.7 106 20 104/68 (80) 95 Room Air 03/08/18 03:52 36.6 105 20 96/60 (72) 97 Room Air 03/08/18 00:00 Room Air 03/07/18 23:07 36.7 113 20 99/62 (74) 96 Room Air 03/07/18 21:02 154 111/69 (83) 98 Room Air 03/07/18 19:35 36.9 119 18 106/70 (82) 95 Room Air 03/07/18 19:15 111 16 95 Room Air 03/07/18 16:00 Room Air 03/07/18 15:22 36.7 104 19 108/69 (82) 100 Nebulizer 03/07/18 15:19 118 14 96 Room Air 03/07/18 10:47 36.8 91 18 94/61 (72) 98 Room Air Physical Exam General Appearance: WD/WN, no apparent distress Neck: supple, no adenopathy, trachea midline Respiratory/Chest: chest non-tender, lungs clear, normal breath sounds, no respiratory distress, no accessory muscle use Cardiovascular: no edema, no gallop, + irregularly irregular Abdomen: normal bowel sounds, non tender, soft Extremities: non-tender, normal inspection, no pedal edema Neurologic/Psychiatric: alert, normal mood/affect, oriented x 3 Skin: normal color, warm/dry, no rash Laboratory Results 03/08/18 05:25 Red Blood Count 3.07, Mean Corpuscular Volume 101.6, Mean Corpuscular Hemoglobin 32.9, Mean Corpuscular Hemoglobin Concent 32.4, Mean Platelet Volume 9.4, Neutrophils (%) (Auto) 59.3, Lymphocytes (%) (Auto) 28.2, Monocytes (%) ( Auto) 8.7, Eosinophils (%) (Auto) 3.2, Basophils (%) (Auto) 0.3, Neutrophils # ( Auto) 3.55, Lymphocytes # (Auto) 1.69, Monocytes # (Auto) 0.52, Eosinophils # ( Auto) 0.19, Basophils # (Auto) 0.02 03/08/18 05:25 Test 03/08/18 05:25 White Blood Count 5.99 K/uL (4.8-10.8) Red Blood Count 3.07 M/uL (4.7-6.1) Hemoglobin 10.1 g/dL (14.0-18.0) Hematocrit 31.2 % (42-52) Mean Corpuscular Volume 101.6 fL (80-100) Mean Corpuscular Hemoglobin 32.9 pg (25-34) Mean Corpuscular Hemoglobin Concent 32.4 g/dl (32-36) Platelet Count 156 K/uL (130-400) Mean Platelet Volume 9.4 fL (7.4-10.4) Neutrophils (%) (Auto) 59.3 % Lymphocytes (%) (Auto) 28.2 % Monocytes (%) (Auto) 8.7 % Eosinophils (%) (Auto) 3.2 % Basophils (%) (Auto) 0.3 % Neutrophils # (Auto) 3.55 K/uL (1.4-6.5) Lymphocytes # (Auto) 1.69 K/uL (1.2-3.4) Monocytes # (Auto) 0.52 K/uL (0.11-0.59) Eosinophils # (Auto) 0.19 K/uL (0-0.5) Basophils # (Auto) 0.02 K/uL (0-0.2) RDW Standard Deviation 56.8 fL (36.4-46.3) RDW Coefficient of Variation 15.6 % (11.5-14.5) Immature Granulocyte % (Auto) 0.3 % Immature Granulocyte # (Auto) 0.02 K/uL (0.00-0.02) Anion Gap 10.0 mmol/L (3-11) Est Creatinine Clear Calc Drug Dose 13.5 ml/min Estimated GFR () 10.3 Estimated GFR (Non- 8.9 BUN/Creatinine Ratio 5.0 (10-20) Calcium Level 7.4 mg/dl (8.5-10.1) Assessment and Plan Patient is a 77 year old male with a PMH of COPD, ESRD on dialysis, Afib, BPH and neuroendocrine tumor of the liver that presented to [facility] due to black tarry stools. Microcytic anemia secondary to GI bleed - Some ectasia on scope which were cauterized. Hb stable. - GI following; cont Carafate and PO ppi - Advancing to heart healthy diet today - Daily H&H, hold aspirin and warfarin, watch INR and close follow up with primary care after discharge. - Recommend restarting warfarin in 1 week. - 1U PRBC given on admission, hemoglobin responded appropriately - B12 and folate WNL Afib with RVR, hypotension - Tried to lower rates with increasing Lopressor, but BP could not tolerate - Cardiology consulted, appreciate recommendations; dc amiodarone due to previous adverse effects, continue metoprolol with trial of Cardizem - May need ablation and permanent pacemaker if continue to have issues with controlling rates - Follows with Dr. Deluna, will review [facility] records to see previous treatments - TSH normal - warfarin and aspirin held; restart warfarin in 1 week. Dyspnea, COPD - afib vs copd vs chf vs nstemi on differential - CXR shows chronic interstitial change, emphysema - troponin neg x 2 - duonebs q4 scheduled ESRD on dialysis - dialysis on Friday, Friday and Friday - continue calcium - consulted nephro for dialysis, HD set up for MWF. AVF patent - AV angioplasty performed 03/06/18 BPH - continue tamsulosin HLD - continue statin Neuroendocrine tumor of liver - patient receives octreotide injections once monthly - currently stable DVTP: contraindicated due to GI bleed Dispo: pt lives alone/PTOT evals. Patient has requested PCP transfer of care closer to his home near [place]. Code: DNR
--- NOTE | 2018-03-08 10:03 | Nephrology Progress Note ---
Nephrology Progress Note Date of Service Mar 08, 2018. Chief Complaint ESRD Subjective No acute events overnight. No complaints this morning. Freddy continues to hope that he can be discharged home soon. He is ambulating in his hospital room. He denies any lightheadedness, dizziness, syncope or presyncope. He denies dyspnea. He denies chest pain or palpitations. Review of Systems A complete review of systems was performed. Pertinent positives are noted above. All other systems are negative. Vital Signs Last 8 Hrs Date Time Temp Pulse Resp B/P (MAP) Pulse Ox O2 Delivery O2 Flow Rate FiO2 03/08/18 07:02 91 16 92 Room Air 03/08/18 06:48 37.7 106 20 104/68 (80) 95 Room Air 03/08/18 03:52 36.6 105 20 96/60 (72) 97 Room Air Last Recorded Weight Weight (Kilograms): 103.800 Physical Exam General Appearance: WD/WN, no apparent distress Head: normocephalic, atraumatic Eyes: normal inspection, sclerae normal ENT: normal ENT inspection, pharynx normal Neck: supple, no JVD Respiratory/Chest: lungs clear, no respiratory distress, no accessory muscle use Cardiovascular: no gallop, + irregularly irregular Abdomen/GI: non tender, soft Extremities/Musculoskelatal: normal inspection, no pedal edema Neurologic/Psych: alert, normal mood/affect Family History No pertinent family history Negative for CKD / ESRD Social History Smoking Status: Former smoker Smokeless Tobacco Use: No Alcohol Use: occasionally Drug Use: none Marital Status: , Housing Status: lives alone Occupation: retired . Retired. Former smoker Laboratory Results Past 24 Hours 03/08/18 05:25 Red Blood Count 3.07, Mean Corpuscular Volume 101.6, Mean Corpuscular Hemoglobin 32.9, Mean Corpuscular Hemoglobin Concent 32.4, Mean Platelet Volume 9.4, Neutrophils (%) (Auto) 59.3, Lymphocytes (%) (Auto) 28.2, Monocytes (%) ( Auto) 8.7, Eosinophils (%) (Auto) 3.2, Basophils (%) (Auto) 0.3, Neutrophils # ( Auto) 3.55, Lymphocytes # (Auto) 1.69, Monocytes # (Auto) 0.52, Eosinophils # ( Auto) 0.19, Basophils # (Auto) 0.02 03/08/18 05:25 Test 03/08/18 05:25 White Blood Count 5.99 K/uL (4.8-10.8) Red Blood Count 3.07 M/uL (4.7-6.1) Hemoglobin 10.1 g/dL (14.0-18.0) Hematocrit 31.2 % (42-52) Mean Corpuscular Volume 101.6 fL (80-100) Mean Corpuscular Hemoglobin 32.9 pg (25-34) Mean Corpuscular Hemoglobin Concent 32.4 g/dl (32-36) Platelet Count 156 K/uL (130-400) Mean Platelet Volume 9.4 fL (7.4-10.4) Neutrophils (%) (Auto) 59.3 % Lymphocytes (%) (Auto) 28.2 % Monocytes (%) (Auto) 8.7 % Eosinophils (%) (Auto) 3.2 % Basophils (%) (Auto) 0.3 % Neutrophils # (Auto) 3.55 K/uL (1.4-6.5) Lymphocytes # (Auto) 1.69 K/uL (1.2-3.4) Monocytes # (Auto) 0.52 K/uL (0.11-0.59) Eosinophils # (Auto) 0.19 K/uL (0-0.5) Basophils # (Auto) 0.02 K/uL (0-0.2) RDW Standard Deviation 56.8 fL (36.4-46.3) RDW Coefficient of Variation 15.6 % (11.5-14.5) Immature Granulocyte % (Auto) 0.3 % Immature Granulocyte # (Auto) 0.02 K/uL (0.00-0.02) Anion Gap 10.0 mmol/L (3-11) Est Creatinine Clear Calc Drug Dose 13.5 ml/min Estimated GFR () 10.3 Estimated GFR (Non- 8.9 BUN/Creatinine Ratio 5.0 (10-20) Calcium Level 7.4 mg/dl (8.5-10.1) Allergies Coded Allergies: No Known Allergies (Unverified , 03/03/18) Medications Current Inpatient Medications Medications (Trade) Dose Ordered Sig/Carlos Route Start Time Stop Time Status Last Admin Dose Admin Ondansetron HCl (Zofran Inj) 4 mg Q6H PRN IV 03/03/18 21:30 04/02/18 21:29 Midodrine (Proamatine Tab) 5 mg MoWeFr@0800 PO 03/04/18 08:00 04/03/18 07:59 03/06/18 11:36 5 MG Tamsulosin HCl (Flomax Cap) 0.4 mg QPM PO 03/04/18 21:00 04/03/18 20:59 03/07/18 20:29 0.4 MG Miscellaneous Information (Order Awaiting Action) 1 ea QS N/A 03/04/18 08:00 04/03/18 07:59 Albuterol/ Ipratropium (Duoneb) 3 ml QIDR INH 03/04/18 08:00 04/03/18 07:59 03/08/18 07:01 3 ML Sucralfate (Carafate Tab) 1 gm BID PO 03/05/18 21:00 04/04/18 20:59 03/08/18 09:13 1 GM Pantoprazole Sodium (Protonix Tab) 40 mg BID@0700,1615 PO 03/07/18 16:15 04/06/18 16:14 03/08/18 09:14 40 MG Metoprolol Succinate (Toprol Xl Tab) 12.5 mg BID PO 03/08/18 09:00 04/03/18 20:59 03/08/18 09:13 12.5 MG Diltiazem HCl (Cardizem Tab) 30 mg TID PO 03/08/18 09:00 04/07/18 08:59 03/08/18 09:12 30 MG Impression (1) Melena (2) ESRD (end stage renal disease) on dialysis (3) Neuroendocrine carcinoma metastatic to liver (4) Diabetes Recommendations END STAGE RENAL DISEASE: -- HD MWF -- BP and volume status appropriate -- Metabolic profile acceptable -- Plan next HD tomorrow VASCULAR ACCESS: -- Fistulogram performed 03/06/[address] 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 Cardiology consultation reviewed If discharge is anticipated, please have patient resume his MWF HD schedule at [facility] dialysis unit
[2018-03-08] MEDS ORDERED: POTASSIUM CHLORIDE 20 MEQ TABCR PO STA (12:22)
--- NOTE | 2018-03-08 12:41 | Cardiology Follow-Up ---
Subjective Date of Service: Mar 08, 2018. Pt evaluation today including: conversation w/ patient, physical exam, chart review, lab review, review of studies, review of inpatient medication list History of Present Illness Patient claims to be feeling well today. He is anxious to go home. He did tolerate a diet this morning. He has no abdominal complaints currently. He was ambulatory around the abad earlier and did not report dizziness, lightheadedness or dyspnea. Social History Smoking Status: Former Smoker History of Alcohol Use: Yes (OCCASIONALLY) Review of Systems Respiratory: + shortness of breath, + dyspnea on exertion, No cough, No sputum , No wheezing Cardiac: No chest pain, No orthopnea, No palpitations Per HPI. Overall feeling better. He denies edema. He does not report any trouble with dialysis. Objective Vital Signs Past 12 Hours Date Time Temp Pulse Resp B/P (MAP) Pulse Ox O2 Delivery O2 Flow Rate FiO2 03/08/18 12:29 36.9 122 18 105/58 (74) 95 Room Air 03/08/18 11:21 86 16 96 Room Air 03/08/18 08:30 Room Air 03/08/18 07:02 91 16 92 Room Air 03/08/18 06:48 37.7 106 20 104/68 (80) 95 Room Air 03/08/18 03:52 36.6 105 20 96/60 (72) 97 Room Air Last Recorded Weight-Kilograms: 103.800 Physical Exam Lungs: Auscultation: decreased breath sounds The patient is alert and oriented. Mood and affect appeared normal. He answered all questions appropriately. HEENT: Pupils are equal and reactive to light and accommodation. Extraocular movements are intact. The sclerae are anicteric. Neuro: Cranial nerves intact Neck: Patient's neck is supple. He has palpable carotid pulses bilaterally without bruits on auscultation. There is no evidence of jugular venous distention. The thyroid is not enlarged. Lungs: Clear to auscultation bilaterally. He has good air movement without use of accessory muscles. No rales wheezes or rhonchi. Cardiac: Heart demonstrates an irregular rate and rhythm. Normal S1 and S2. No murmurs on examination. Pulses: The patient has palpable radial pulses bilaterally that are equal in intensity Extremities: There was no evidence of hypoperfusion. There is no cyanosis or clubbing. There is no edema. AV fistula in the right antecubital area. Palpable thrill Skin: I did not appreciate any rashes on examination today. Data Laboratory Results: Last 24 Hours Test 03/08/18 05:25 White Blood Count 5.99 K/uL Red Blood Count 3.07 M/uL Hemoglobin 10.1 g/dL Hematocrit 31.2 % Mean Corpuscular Volume 101.6 fL Mean Corpuscular Hemoglobin 32.9 pg Mean Corpuscular Hemoglobin Concent 32.4 g/dl Platelet Count 156 K/uL Mean Platelet Volume 9.4 fL Neutrophils (%) (Auto) 59.3 % Lymphocytes (%) (Auto) 28.2 % Monocytes (%) (Auto) 8.7 % Eosinophils (%) (Auto) 3.2 % Basophils (%) (Auto) 0.3 % Neutrophils # (Auto) 3.55 K/uL Lymphocytes # (Auto) 1.69 K/uL Monocytes # (Auto) 0.52 K/uL Eosinophils # (Auto) 0.19 K/uL Basophils # (Auto) 0.02 K/uL RDW Standard Deviation 56.8 fL RDW Coefficient of Variation 15.6 % Immature Granulocyte % (Auto) 0.3 % Immature Granulocyte # (Auto) 0.02 K/uL Sodium Level 136 mmol/L Potassium Level 3.2 mmol/L Chloride Level 103 mmol/L Carbon Dioxide Level 23 mmol/L Anion Gap 10.0 mmol/L Blood Urea Nitrogen 29 mg/dl Creatinine 5.71 mg/dl Est Creatinine Clear Calc Drug Dose 13.5 ml/min Estimated GFR () 10.3 Estimated GFR (Non- 8.9 BUN/Creatinine Ratio 5.0 Random Glucose 146 mg/dl Calcium Level 7.4 mg/dl Imaging: EKG: Telemetry reviewed: Assessment and Plan 1. Atrial fibrillation: Permanent. No overt symptoms. He seemed to tolerate ambulation without symptoms. Overall rate control continues to be suboptimal, but he just received his 1st dose of calcium channel zach this morning. Amiodarone was discontinued. His blood pressures overall are fairly low and he does require midodrine prior to dialysis. Overall heart rates however appear slightly improved late this morning. We will simply need to monitor his heart rates, blood pressure and symptoms to see if this would be ineffective regimen for controlling his atrial fibrillation.
--- NOTE | 2018-03-08 15:21 | Gastroenterology Progress Note ---
Progress Note Date of Service: Mar 08, 2018 Subjective Pt evaluation today including: conversation w/ patient, physical exam, chart review, lab review, review of studies, review of inpatient medication list cc f/u GI bleeding HPI No stools since I saw patient yesterday. No abd pain. Toleratiing solid diet. Review of Systems Respiratory: No shortness of breath Cardiac: No chest pain Medications Current Inpatient Medications Medications (Trade) Dose Ordered Sig/Carlos Route Start Time Stop Time Status Last Admin Dose Admin Ondansetron HCl (Zofran Inj) 4 mg Q6H PRN IV 03/03/18 21:30 04/02/18 21:29 Midodrine (Proamatine Tab) 5 mg MoWeFr@0800 PO 03/04/18 08:00 04/03/18 07:59 03/06/18 11:36 5 MG Tamsulosin HCl (Flomax Cap) 0.4 mg QPM PO 03/04/18 21:00 04/03/18 20:59 03/07/18 20:29 0.4 MG Miscellaneous Information (Order Awaiting Action) 1 ea QS N/A 03/04/18 08:00 04/03/18 07:59 Albuterol/ Ipratropium (Duoneb) 3 ml QIDR INH 03/04/18 08:00 04/03/18 07:59 03/08/18 15:09 3 ML Sucralfate (Carafate Tab) 1 gm BID PO 03/05/18 21:00 04/04/18 20:59 03/08/18 09:13 1 GM Pantoprazole Sodium (Protonix Tab) 40 mg BID@0700,1615 PO 03/07/18 16:15 04/06/18 16:14 03/08/18 09:14 40 MG Metoprolol Succinate (Toprol Xl Tab) 12.5 mg BID PO 03/08/18 09:00 04/03/18 20:59 03/08/18 09:13 12.5 MG Diltiazem HCl (Cardizem Tab) 30 mg TID PO 03/08/18 09:00 04/07/18 08:59 03/08/18 13:11 30 MG Objective Vital Signs Date Time Temp Pulse Resp B/P (MAP) Pulse Ox O2 Delivery O2 Flow Rate FiO2 03/08/18 15:09 75 16 96 Room Air 03/08/18 12:29 36.9 122 18 105/58 (74) 95 Room Air 03/08/18 11:21 86 16 96 Room Air 03/08/18 08:30 Room Air 03/08/18 07:02 91 16 92 Room Air 03/08/18 06:48 37.7 106 20 104/68 (80) 95 Room Air 03/08/18 03:52 36.6 105 20 96/60 (72) 97 Room Air 03/08/18 00:00 Room Air 03/07/18 23:07 36.7 113 20 99/62 (74) 96 Room Air 03/07/18 21:02 154 111/69 (83) 98 Room Air 03/07/18 19:35 36.9 119 18 106/70 (82) 95 Room Air 03/07/18 19:15 111 16 95 Room Air 03/07/18 16:00 Room Air 03/07/18 15:22 36.7 104 19 108/69 (82) 100 Nebulizer 03/07/18 15:19 118 14 96 Room Air Physical Exam General Appearance: WD/WN, no apparent distress Respiratory/Chest: lungs clear, normal breath sounds, no respiratory distress Cardiovascular: no murmur Abdomen: normal bowel sounds, non tender, soft, no organomegaly Neurologic/Psych: normal mood/affect, oriented x 3 Skin: normal color Laboratory Results Last 24 Hours Test 03/08/18 05:25 White Blood Count 5.99 K/uL Red Blood Count 3.07 M/uL Hemoglobin 10.1 g/dL Hematocrit 31.2 % Mean Corpuscular Volume 101.6 fL Mean Corpuscular Hemoglobin 32.9 pg Mean Corpuscular Hemoglobin Concent 32.4 g/dl Platelet Count 156 K/uL Mean Platelet Volume 9.4 fL Neutrophils (%) (Auto) 59.3 % Lymphocytes (%) (Auto) 28.2 % Monocytes (%) (Auto) 8.7 % Eosinophils (%) (Auto) 3.2 % Basophils (%) (Auto) 0.3 % Neutrophils # (Auto) 3.55 K/uL Lymphocytes # (Auto) 1.69 K/uL Monocytes # (Auto) 0.52 K/uL Eosinophils # (Auto) 0.19 K/uL Basophils # (Auto) 0.02 K/uL RDW Standard Deviation 56.8 fL RDW Coefficient of Variation 15.6 % Immature Granulocyte % (Auto) 0.3 % Immature Granulocyte # (Auto) 0.02 K/uL Sodium Level 136 mmol/L Potassium Level 3.2 mmol/L Chloride Level 103 mmol/L Carbon Dioxide Level 23 mmol/L Anion Gap 10.0 mmol/L Blood Urea Nitrogen 29 mg/dl Creatinine 5.71 mg/dl Est Creatinine Clear Calc Drug Dose 13.5 ml/min Estimated GFR () 10.3 Estimated GFR (Non- 8.9 BUN/Creatinine Ratio 5.0 Random Glucose 146 mg/dl Calcium Level 7.4 mg/dl Assessment and Plan melena--from bleeding 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 Continue carafate, Switch to po protonix. antral AVMs--s/p APC anemia--stable. Pt stable from GI standpoint for DC. Will sign off. Please call for further questions.
[2018-03-08] MEDS: TAMSULOSIN HCL 0.4 MG CAP PO SCH (21:04)
[2018-03-09] VITALS (25 sets, daily range): BP systolic 90–127; BP diastolic 49–76; PULSE 75–117; TEMP 36.4–37; O2SAT 95–100
[2018-03-09 06:01] LABS: BASO % 0.3 %; BASO ABS # 0.02 K/uL (0-0.2); EOS % 3.9 %; EOS ABS # 0.25 K/uL (0-0.5); HEMATOCRIT 27.5 % (42-52); HEMOGLOBIN 9.2 g/dL (14.0-18.0); IG# 0.02 K/uL (0.00-0.02); LYMPH % 22.5 %; LYMPH ABS # 1.44 K/uL (1.2-3.4); MEAN CORPUSCULAR HEMOGLOBIN 34.5 pg (25-34); MEAN CORPUSCULAR HGB CONC 33.5 g/dl (32-36); MEAN PLATELET VOLUME 9.3 fL (7.4-10.4); MONO % 9.2 %; MONO ABS # 0.59 K/uL (0.11-0.59); NEUT % 63.8 %; NEUT ABS # 4.08 K/uL (1.4-6.5); PLATELET COUNT 147 K/uL (130-400); RED CELL DISTRIBUTION WIDTH SD 58.7 fL (36.4-46.3)
[2018-03-09 06:14] LABS: INR 1.1 (0.9-1.1)
[2018-03-09 06:48] LABS: CALCIUM 7.4 mg/dl (8.5-10.1); CREATININE 6.85 mg/dl (0.60-1.40)
[2018-03-09 06:49] LABS: POTASSIUM 3.7 mmol/L (3.5-5.1)
[2018-03-09] MEDS: ALBUT/IPRATROP 3MG/0.5MG NEB 3 ML VIAL INH SCH ×4 (07:19→18:55)
[2018-03-09] MEDS: MIDODRINE 2.5 MG TAB PO SCH (08:20)
[2018-03-09] MEDS: PANTOprazole SOD 40 MG TAB PO SCH ×2 (08:20→16:26)
--- NOTE | 2018-03-09 08:45 | Family Medicine Progress Note ---
Progress Note Date of Service Mar 09, 2018. Subjective Pt evaluation today including: conversation w/ patient, physical exam, chart review, lab review, review of studies, review of inpatient medication list Pain: denies PO Intake: adequate Voiding: no voiding problems No acute events overnight. Patient denies further blood in stool. He denies abdominal pain, n/v, diarrhea, lightheadedness, fatigue, palpitation, sob Constitutional: No fever, No chills, No weakness Respiratory: No cough, No sputum, No shortness of breath Cardiovascular: No chest pain, No edema, No palpitations Abdomen: + GI bleeding (resolved), No pain, No nausea, No vomiting, No diarrhea Musculoskeletal: No swelling Male : No dysuria, No urinary frequency Neurologic: No weakness, No numbness/tingling Skin: No rash, No itch Medications Current Inpatient Medications Medications (Trade) Dose Ordered Sig/Carlos Route Start Time Stop Time Status Last Admin Dose Admin Ondansetron HCl (Zofran Inj) 4 mg Q6H PRN IV 03/03/18 21:30 04/02/18 21:29 Midodrine (Proamatine Tab) 5 mg MoWeFr@0800 PO 03/04/18 08:00 04/03/18 07:59 03/09/18 08:20 5 MG Tamsulosin HCl (Flomax Cap) 0.4 mg QPM PO 03/04/18 21:00 04/03/18 20:59 03/08/18 21:04 0.4 MG Miscellaneous Information (Order Awaiting Action) 1 ea QS N/A 03/04/18 08:00 04/03/18 07:59 Albuterol/ Ipratropium (Duoneb) 3 ml QIDR INH 03/04/18 08:00 04/03/18 07:59 03/09/18 07:19 3 ML Sucralfate (Carafate Tab) 1 gm BID PO 03/05/18 21:00 04/04/18 20:59 03/08/18 21:04 1 GM Pantoprazole Sodium (Protonix Tab) 40 mg BID@0700,1615 PO 03/07/18 16:15 04/06/18 16:14 03/09/18 08:20 40 MG Metoprolol Succinate (Toprol Xl Tab) 12.5 mg BID PO 03/08/18 09:00 04/03/18 20:59 03/08/18 21:04 12.5 MG Diltiazem HCl (Cardizem Tab) 30 mg TID PO 03/08/18 09:00 04/07/18 08:59 03/08/18 21:04 30 MG Epoetin Artur (Procrit Inj) 4,000 units 0900 IV 03/09/18 09:00 03/09/18 23:00 Objective Vital Signs Date Time Temp Pulse Resp B/P (MAP) Pulse Ox O2 Delivery O2 Flow Rate FiO2 03/09/18 10:00 94 102/64 03/09/18 09:45 114 95/60 03/09/18 09:30 110 99/69 03/09/18 09:15 108 95/64 03/09/18 08:57 94 99/61 03/09/18 08:00 Room Air 03/09/18 07:19 78 14 95 Room Air 03/09/18 07:06 36.8 75 18 123/73 (90) 95 Room Air 03/09/18 04:07 36.7 110 20 90/54 (66) 95 Room Air 03/09/18 00:01 Room Air 03/08/18 23:38 36.8 104 18 103/67 (79) 96 Room Air 03/08/18 20:00 Room Air 03/08/18 19:24 36.8 91 18 103/68 (80) 97 Room Air 03/08/18 19:01 101 16 94 Room Air 03/08/18 15:20 36.7 86 19 98/64 (75) 98 Room Air 03/08/18 15:09 75 16 96 Room Air 03/08/18 12:29 36.9 122 18 105/58 (74) 95 Room Air 03/08/18 11:21 86 16 96 Room Air Physical Exam Notes: GENERAL: alert, no distress EYE EXAM: normal conjunctiva, PERRL and EOM's grossly intact OROPHARYNX: no exudate, no erythema, lips, buccal mucosa, and tongue normal and mucous membranes are moist NECK: supple, non-tender LUNGS: Dec'd Breath sounds bilaterally, Clear to auscultation. HEART: no murmurs, S1 normal and S2 normal ABDOMEN: abdomen soft, non-tender, normo-active bowel sounds, no masses, no rebound or guarding. BACK: Back is symmetrical on inspection and there is no deformity SKIN: no rashes and no bruising UPPER EXTREMITIES: upper extremities are grossly normal. LOWER EXTREMITIES: No pitting edema. NEURO EXAM:AOx3, cranial nerves II-XII grossly intact, normal speech, no gross weakness of arms, no gross weakness of legs] Laboratory Results Results Past 24 Hours Test 03/09/18 05:36 Range/Units White Blood Count 6.40 4.8-10.8 K/uL Red Blood Count 2.67 4.7-6.1 M/uL Hemoglobin 9.2 14.0-18.0 g/dL Hematocrit 27.5 42-52 % Mean Corpuscular Volume 103.0 80-100 fL Mean Corpuscular Hemoglobin 34.5 25-34 pg Mean Corpuscular Hemoglobin Concent 33.5 32-36 g/dl Platelet Count 147 130-400 K/uL Mean Platelet Volume 9.3 7.4-10.4 fL Neutrophils (%) (Auto) 63.8 % Lymphocytes (%) (Auto) 22.5 % Monocytes (%) (Auto) 9.2 % Eosinophils (%) (Auto) 3.9 % Basophils (%) (Auto) 0.3 % Neutrophils # (Auto) 4.08 1.4-6.5 K/uL Lymphocytes # (Auto) 1.44 1.2-3.4 K/uL Monocytes # (Auto) 0.59 0.11-0.59 K/uL Eosinophils # (Auto) 0.25 0-0.5 K/uL Basophils # (Auto) 0.02 0-0.2 K/uL RDW Standard Deviation 58.7 36.4-46.3 fL RDW Coefficient of Variation 16.0 11.5-14.5 % Immature Granulocyte % (Auto) 0.3 % Immature Granulocyte # (Auto) 0.02 0.00-0.02 K/uL Prothrombin Time 11.2 9.0-12.0 SECONDS Prothromb Time International Ratio 1.1 0.9-1.1 Sodium Level 139 136-145 mmol/L Potassium Level 3.7 3.5-5.1 mmol/L Chloride Level 107 98-107 mmol/L Carbon Dioxide Level 22 21-32 mmol/L Anion Gap 10.0 3-11 mmol/L Blood Urea Nitrogen 43 7-18 mg/dl Creatinine 6.85 0.60-1.40 mg/dl Est Creatinine Clear Calc Drug Dose 11.2 ml/min Estimated GFR () 8.3 Estimated GFR (Non- 7.2 BUN/Creatinine Ratio 6.2 10-20 Random Glucose 133 70-99 mg/dl Calcium Level 7.4 8.5-10.1 mg/dl Assessment and Plan 77 yo M with a PMHx of COPD, ESRD on dialysis (MWF), Afib, BPH and neuroendocrine tumor of the liver presenting with dark stools admitted with with GI bleed, Anemia found to have Atrial Fibrillation with RVR on arrival Microcytic anemia: secondary to GI bleed - asx, no further gross blood in stool - s/p transfusion of 1 U PRBC on admission - GI on board s/p EGD with cauterization via APC - C/w Carafate, PO Protonix 40 mg BID - H/H drop from 10.1-->9.2, recheck in afternoon - Maintain hold on aspirin and warfarin at this time - Plan to restart warfarin in 03/15 in outpatient setting, Recheck INR outpatient - B12, folate unremarkable this admission Afib with RVR, hypotension - remains in Afib, HR in low 100's - Continue Metoprolol 12.5 mg BID, Cardizem 30 mg TID - Cardiology on board , F/u report - TSH normal - Maintain hold warfarin and aspirin due to GI bleed- - Plan to restart warfarin in 03/15 Dyspnea, COPD - SOB resolved - possibly secondary to anemia vs COPD - CXR (03/03) : chronic interstitial change, emphysema - Troponin neg x 2, ACS unlikely - Continue duonebs q4 ESRD on dialysis - dialysis on Friday, Friday and Friday - Continue calcium - Nephrology on board - s/p Fistulogram with angioplasty 03/06/18 - s/p HD Dialysis today, typically scheduled MWF, AVF patient - Per Nephrology, will have HD tomorrow BPH - Continue tamsulosin HLD - Lipitor on hold Neuroendocrine tumor of liver -stable , asx - octreotide injections qmonthly DVT PPx: contraindicated due to GI bleed Dispo: Med/Surg Scheduled for F/u appointments outpatient with Dr. Palma, Dr. Michelet outpatient PT/OT Code: DNR Resident Physician Supervision Note: I was present with Dr. Schultz during the history and exam. I discussed the case with the resident and agree with the findings and plan as documented in the note. I also discussed the case with cardiology and nephrology consultants. Patient is without complaints today. If Hgb is stable in the AM, and he remains hemodynamically stable in terms of his A-fib, he should be able to go home in AM. Documented By: Jamie Giles Discharge planning: home Resident Tracking Resident Involvement: Resident Care Provided Care Provided: Adult Hospital Medicine
[2018-03-09] MEDS ORDERED: EPOETIN ALFA 4000 UNITS/ML VIAL IV SCH (09:00)
--- NOTE | 2018-03-09 10:32 | Nephrology Progress Note ---
Nephrology Progress Note Date of Service Mar 09, 2018. Chief Complaint ESRD Subjective Mr. Lindsay was seen and evaluate during hemodialysis. He feels well. Denies chest pain or palpitations. No lightheadedness or dizziness. BP appropriate. Heart rate 90-100 bpm during dialysis. Review of Systems A complete review of systems was performed. Pertinent positives are noted above. All other systems are negative. Vital Signs Last 8 Hrs Date Time Temp Pulse Resp B/P (MAP) Pulse Ox O2 Delivery O2 Flow Rate FiO2 03/09/18 10:00 94 102/64 03/09/18 09:45 114 95/60 03/09/18 09:30 110 99/69 03/09/18 09:15 108 95/64 03/09/18 08:57 94 99/61 03/09/18 07:19 78 14 95 Room Air 03/09/18 07:06 36.8 75 18 123/73 (90) 95 Room Air 03/09/18 04:07 36.7 110 20 90/54 (66) 95 Room Air Last Recorded Weight Weight (Kilograms): 103.400 Physical Exam General Appearance: WD/WN, no apparent distress Head: normocephalic, atraumatic Eyes: normal inspection, sclerae normal ENT: normal ENT inspection, pharynx normal Neck: supple, no JVD Respiratory/Chest: lungs clear, no respiratory distress, no accessory muscle use Cardiovascular: + irregularly irregular Abdomen/GI: non tender, soft Extremities/Musculoskelatal: normal inspection, no pedal edema Neurologic/Psych: alert, normal mood/affect Family History No pertinent family history Negative for CKD / ESRD Social History Smoking Status: Former smoker Smokeless Tobacco Use: No Alcohol Use: occasionally Drug Use: none Marital Status: , Housing Status: lives alone Occupation: retired . Retired. Former smoker Laboratory Results Past 24 Hours 03/09/18 05:36 Red Blood Count 2.67, Mean Corpuscular Volume 103.0, Mean Corpuscular Hemoglobin 34.5, Mean Corpuscular Hemoglobin Concent 33.5, Mean Platelet Volume 9.3, Neutrophils (%) (Auto) 63.8, Lymphocytes (%) (Auto) 22.5, Monocytes (%) ( Auto) 9.2, Eosinophils (%) (Auto) 3.9, Basophils (%) (Auto) 0.3, Neutrophils # ( Auto) 4.08, Lymphocytes # (Auto) 1.44, Monocytes # (Auto) 0.59, Eosinophils # ( Auto) 0.25, Basophils # (Auto) 0.02 03/09/18 05:36 Test 03/09/18 05:36 White Blood Count 6.40 K/uL (4.8-10.8) Red Blood Count 2.67 M/uL (4.7-6.1) Hemoglobin 9.2 g/dL (14.0-18.0) Hematocrit 27.5 % (42-52) Mean Corpuscular Volume 103.0 fL (80-100) Mean Corpuscular Hemoglobin 34.5 pg (25-34) Mean Corpuscular Hemoglobin Concent 33.5 g/dl (32-36) Platelet Count 147 K/uL (130-400) Mean Platelet Volume 9.3 fL (7.4-10.4) Neutrophils (%) (Auto) 63.8 % Lymphocytes (%) (Auto) 22.5 % Monocytes (%) (Auto) 9.2 % Eosinophils (%) (Auto) 3.9 % Basophils (%) (Auto) 0.3 % Neutrophils # (Auto) 4.08 K/uL (1.4-6.5) Lymphocytes # (Auto) 1.44 K/uL (1.2-3.4) Monocytes # (Auto) 0.59 K/uL (0.11-0.59) Eosinophils # (Auto) 0.25 K/uL (0-0.5) Basophils # (Auto) 0.02 K/uL (0-0.2) RDW Standard Deviation 58.7 fL (36.4-46.3) RDW Coefficient of Variation 16.0 % (11.5-14.5) Immature Granulocyte % (Auto) 0.3 % Immature Granulocyte # (Auto) 0.02 K/uL (0.00-0.02) Prothrombin Time 11.2 SECONDS (9.0-12.0) Prothromb Time International Ratio 1.1 (0.9-1.1) Anion Gap 10.0 mmol/L (3-11) Est Creatinine Clear Calc Drug Dose 11.2 ml/min Estimated GFR () 8.3 Estimated GFR (Non- 7.2 BUN/Creatinine Ratio 6.2 (10-20) Calcium Level 7.4 mg/dl (8.5-10.1) Allergies Coded Allergies: No Known Allergies (Unverified , 03/03/18) Medications Current Inpatient Medications Medications (Trade) Dose Ordered Sig/Carlos Route Start Time Stop Time Status Last Admin Dose Admin Ondansetron HCl (Zofran Inj) 4 mg Q6H PRN IV 03/03/18 21:30 04/02/18 21:29 Midodrine (Proamatine Tab) 5 mg MoWeFr@0800 PO 03/04/18 08:00 04/03/18 07:59 03/09/18 08:20 5 MG Tamsulosin HCl (Flomax Cap) 0.4 mg QPM PO 03/04/18 21:00 04/03/18 20:59 03/08/18 21:04 0.4 MG Miscellaneous Information (Order Awaiting Action) 1 ea QS N/A 03/04/18 08:00 04/03/18 07:59 Albuterol/ Ipratropium (Duoneb) 3 ml QIDR INH 03/04/18 08:00 04/03/18 07:59 03/09/18 07:19 3 ML Sucralfate (Carafate Tab) 1 gm BID PO 03/05/18 21:00 04/04/18 20:59 03/08/18 21:04 1 GM Pantoprazole Sodium (Protonix Tab) 40 mg BID@0700,1615 PO 03/07/18 16:15 04/06/18 16:14 03/09/18 08:20 40 MG Metoprolol Succinate (Toprol Xl Tab) 12.5 mg BID PO 03/08/18 09:00 04/03/18 20:59 03/08/18 21:04 12.5 MG Diltiazem HCl (Cardizem Tab) 30 mg TID PO 03/08/18 09:00 04/07/18 08:59 03/08/18 21:04 30 MG Epoetin Artur (Procrit Inj) 4,000 units 0900 IV 03/09/18 09:00 03/09/18 23:00 Impression (1) Melena (2) ESRD (end stage renal disease) on dialysis (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 Tolerating diltiazem well If discharge is anticipated, please have patient resume his MWF HD schedule at [facility] dialysis unit
[2018-03-09] MEDS: METOPROLOL SUCC 25MG EXT REL TAB PO SCH ×2 (12:39→21:06)
[2018-03-09] MEDS: SUCRALFATE 1 GM TAB PO SCH ×2 (12:39→21:06)
[2018-03-09] MEDS: DILTIAZEM HCL 30 MG TAB PO SCH ×2 (12:39→21:06)
[2018-03-09 15:30] LABS: HEMATOCRIT 31.2 % (42-52); HEMOGLOBIN 10.4 g/dL (14.0-18.0)
--- NOTE | 2018-03-09 16:06 | Cardiology Follow-Up ---
Subjective Date of Service: Mar 09, 2018. Pt evaluation today including: conversation w/ patient, physical exam, chart review, lab review, review of studies, review of inpatient medication list History of Present Illness Patient claims to be feeling well today. He is anxious to go home. He did not appear to have any difficulties with dialysis today. He claims to have been ambulatory and denies dizziness or lightheadedness.. Social History Smoking Status: Former Smoker History of Alcohol Use: Yes (OCCASIONALLY) Review of Systems Respiratory: No cough, No sputum, No shortness of breath Cardiac: No chest pain, No edema, No palpitations Per HPI. Overall feeling better. He denies edema. He does not report any trouble with dialysis. Objective Vital Signs Past 12 Hours Date Time Temp Pulse Resp B/P (MAP) Pulse Ox O2 Delivery O2 Flow Rate FiO2 03/09/18 15:17 36.4 102 20 110/74 (86) 100 Room Air 03/09/18 15:08 75 16 98 Room Air 03/09/18 12:36 36.8 106 16 118/76 (90) 96 Room Air 03/09/18 12:20 36.7 117 104/67 (79) 03/09/18 12:00 Room Air 03/09/18 12:00 98 114/70 03/09/18 11:45 100 109/76 03/09/18 11:30 86 96/66 03/09/18 11:15 88 127/62 03/09/18 11:00 96 98/72 03/09/18 10:45 95 106/65 03/09/18 10:30 84 101/65 03/09/18 10:15 108 103/55 03/09/18 10:00 94 102/64 03/09/18 09:45 114 95/60 03/09/18 09:30 110 99/69 03/09/18 09:15 108 95/64 03/09/18 08:57 94 99/61 03/09/18 08:55 37.0 79 95/59 (71) 03/09/18 08:00 Room Air 03/09/18 07:19 78 14 95 Room Air 03/09/18 07:06 36.8 75 18 123/73 (90) 95 Room Air 03/09/18 04:07 36.7 110 20 90/54 (66) 95 Room Air Last Recorded Weight-Kilograms: 105.700 Intake & Output 8-Hour Column 03/09/18 03/10/18 03/10/18 16:00 00:00 08:00 Intake Total 460 ml Output Total 2000 ml Balance -1540 ml 24-Hour Column 03/10/18 08:00 Intake Total 460 ml Output Total 2000 ml Balance -1540 ml Physical Exam Lungs: Auscultation: decreased breath sounds The patient is alert and oriented. Mood and affect appeared normal. He answered all questions appropriately. HEENT: Pupils are equal and reactive to light and accommodation. Extraocular movements are intact. The sclerae are anicteric. Neuro: Cranial nerves intact Neck: Patient's neck is supple. He has palpable carotid pulses bilaterally without bruits on auscultation. There is no evidence of jugular venous distention. The thyroid is not enlarged. Lungs: Clear to auscultation bilaterally. He has good air movement without use of accessory muscles. No rales wheezes or rhonchi. Cardiac: Heart demonstrates an irregular rate and rhythm. Normal S1 and S2. No murmurs on examination. Pulses: The patient has palpable radial pulses bilaterally that are equal in intensity Extremities: There was no evidence of hypoperfusion. There is no cyanosis or clubbing. There is no edema. AV fistula in the right antecubital area. Palpable thrill Skin: I did not appreciate any rashes on examination today. Data Laboratory Results: Last 24 Hours Test 03/09/18 05:36 03/09/18 15:21 White Blood Count 6.40 K/uL Red Blood Count 2.67 M/uL Hemoglobin 9.2 g/dL 10.4 g/dL Hematocrit 27.5 % 31.2 % Mean Corpuscular Volume 103.0 fL Mean Corpuscular Hemoglobin 34.5 pg Mean Corpuscular Hemoglobin Concent 33.5 g/dl Platelet Count 147 K/uL Mean Platelet Volume 9.3 fL Neutrophils (%) (Auto) 63.8 % Lymphocytes (%) (Auto) 22.5 % Monocytes (%) (Auto) 9.2 % Eosinophils (%) (Auto) 3.9 % Basophils (%) (Auto) 0.3 % Neutrophils # (Auto) 4.08 K/uL Lymphocytes # (Auto) 1.44 K/uL Monocytes # (Auto) 0.59 K/uL Eosinophils # (Auto) 0.25 K/uL Basophils # (Auto) 0.02 K/uL RDW Standard Deviation 58.7 fL RDW Coefficient of Variation 16.0 % Immature Granulocyte % (Auto) 0.3 % Immature Granulocyte # (Auto) 0.02 K/uL Prothrombin Time 11.2 SECONDS Prothromb Time International Ratio 1.1 Sodium Level 139 mmol/L Potassium Level 3.7 mmol/L Chloride Level 107 mmol/L Carbon Dioxide Level 22 mmol/L Anion Gap 10.0 mmol/L Blood Urea Nitrogen 43 mg/dl Creatinine 6.85 mg/dl Est Creatinine Clear Calc Drug Dose 11.2 ml/min Estimated GFR () 8.3 Estimated GFR (Non- 7.2 BUN/Creatinine Ratio 6.2 Random Glucose 133 mg/dl Calcium Level 7.4 mg/dl Imaging: EKG: Telemetry reviewed: Assessment and Plan 1. Atrial fibrillation: Permanent. No overt symptoms. No overt symptoms. He appears to be tolerating diltiazem quite well without significant hemodynamic derangements. He is able to tolerate dialysis today while on diltiazem and metoprolol. I think would be reasonable to convert him to a long-acting formulation of the diltiazem and continue him on long-acting Toprol which she was previously prescribed.
[2018-03-09 19:05] LABS: ALBUMIN 2.9 gm/dl (3.4-5.0); CALCIUM 7.6 mg/dl (8.5-10.1); CREATININE 4.69 mg/dl (0.60-1.40); POTASSIUM 4.1 mmol/L (3.5-5.1); TOTAL PROTEIN 6.6 gm/dl (6.4-8.2)
[2018-03-09] MEDS: TAMSULOSIN HCL 0.4 MG CAP PO SCH (21:07)
[2018-03-10] VITALS (9 sets, daily range): BP systolic 96–101; BP diastolic 61–66; PULSE 73–118; TEMP 36.5–36.8; O2SAT 94–98
[2018-03-10 06:16] LABS: BASO % 0.3 %; BASO ABS # 0.02 K/uL (0-0.2); EOS % 4.5 %; HEMOGLOBIN 9.4 g/dL (14.0-18.0); IG# 0.03 K/uL (0.00-0.02); LYMPH % 23.6 %; LYMPH ABS # 1.59 K/uL (1.2-3.4); MEAN CELL VOLUME 101.8 fL (80-100); MEAN CORPUSCULAR HEMOGLOBIN 34.2 pg (25-34); MEAN CORPUSCULAR HGB CONC 33.6 g/dl (32-36); MEAN PLATELET VOLUME 9.2 fL (7.4-10.4); MONO % 9.9 %; MONO ABS # 0.67 K/uL (0.11-0.59); NEUT % 61.3 %; NEUT ABS # 4.13 K/uL (1.4-6.5); PLATELET COUNT 149 K/uL (130-400); RED CELL DISTRIBUTION WIDTH CV 16.1 % (11.5-14.5); RED CELL DISTRIBUTION WIDTH SD 59.3 fL (36.4-46.3); WHITE BLOOD COUNT 6.74 K/uL (4.8-10.8)
[2018-03-10] MEDS: PANTOprazole SOD 40 MG TAB PO SCH ×2 (06:30→15:29)
--- NOTE | 2018-03-10 06:42 | Family Medicine Progress Note ---
Progress Note Date of Service Mar 10, 2018.
[2018-03-10] MEDS: METOPROLOL SUCC 25MG EXT REL TAB PO SCH (07:09)
[2018-03-10] MEDS: SUCRALFATE 1 GM TAB PO SCH (07:09)
--- NOTE | 2018-03-10 08:14 | Family Medicine Progress Note ---
Progress Note Date of Service Mar 10, 2018.
[2018-03-10 08:50] LABS: HEMOGLOBIN A1C 6.3 % (4.5-5.6)
[2018-03-10] MEDS ORDERED: DILTIAZEM HCL 180 MG CAPCR PO SCH (09:00)
--- NOTE | 2018-03-10 09:15 | Nephrology Progress Note ---
Nephrology Progress Note Date of Service Mar 10, 2018. Chief Complaint ESRD Subjective No acute events overnight. Mr. Lindsay reports an occasional flutter in his chest overnight. He feels well this morning. He denies any chest pain. He denies dyspnea. He denies lightheadedness or dizziness. Tolerated HD well yesterday with some intradialytic hypotension and tachycardia. Net UF 2 L. Review of Systems A complete review of systems was performed. Pertinent positives are noted above. All other systems are negative. Vital Signs Last 8 Hrs Date Time Temp Pulse Resp B/P (MAP) Pulse Ox O2 Delivery O2 Flow Rate FiO2 03/10/18 08:00 Room Air 03/10/18 07:26 118 16 94 Room Air 03/10/18 07:08 112 101/63 (76) 03/10/18 06:41 36.8 101 20 96/61 (73) 95 Room Air 03/10/18 04:10 36.6 100 19 97/65 (76) 98 Room Air 03/10/18 02:00 98 Last Recorded Weight Weight (Kilograms): 105.700 Physical Exam General Appearance: WD/WN, no apparent distress Head: normocephalic, atraumatic Eyes: normal inspection, sclerae normal ENT: normal ENT inspection, pharynx normal Neck: supple, no JVD Respiratory/Chest: no respiratory distress, no accessory muscle use, + rales ( bibasilar rales) Cardiovascular: no gallop, + tachycardia Abdomen/GI: non tender, soft Extremities/Musculoskelatal: normal inspection, no pedal edema, + pertinent finding (AVF with thrill and bruit) Neurologic/Psych: alert, normal mood/affect Family History No pertinent family history Negative for CKD / ESRD Social History Smoking Status: Former smoker Smokeless Tobacco Use: No Alcohol Use: occasionally Drug Use: none Marital Status: , Housing Status: lives alone Occupation: retired . Retired. Former smoker Laboratory Results Past 24 Hours 03/09/18 15:21 03/10/18 06:04 Red Blood Count 2.75, Mean Corpuscular Volume 101.8, Mean Corpuscular Hemoglobin 34.2, Mean Corpuscular Hemoglobin Concent 33.6, Mean Platelet Volume 9.2, Neutrophils (%) (Auto) 61.3, Lymphocytes (%) (Auto) 23.6, Monocytes (%) ( Auto) 9.9, Eosinophils (%) (Auto) 4.5, Basophils (%) (Auto) 0.3, Neutrophils # ( Auto) 4.13, Lymphocytes # (Auto) 1.59, Monocytes # (Auto) 0.67, Eosinophils # ( Auto) 0.30, Basophils # (Auto) 0.02 03/09/18 18:19 Test 03/09/18 18:19 03/10/18 06:04 Prothrombin Time 11.0 SECONDS (9.0-12.0) Prothromb Time International Ratio 1.0 (0.9-1.1) Anion Gap 8.0 mmol/L (3-11) Est Creatinine Clear Calc Drug Dose 16.6 ml/min Estimated GFR () 13.1 Estimated GFR (Non- 11.3 BUN/Creatinine Ratio 5.1 (10-20) Calcium Level 7.6 mg/dl (8.5-10.1) Total Bilirubin 0.3 mg/dl (0.2-1) Aspartate Amino Transf (AST/SGOT) 14 U/L (15-37) Alanine Aminotransferase (ALT/SGPT) 10 U/L (12-78) Alkaline Phosphatase 65 U/L (45-117) Total Protein 6.6 gm/dl (6.4-8.2) Albumin 2.9 gm/dl (3.4-5.0) Globulin 3.7 gm/dl (2.5-4.0) Albumin/Globulin Ratio 0.8 (0.9-2) White Blood Count 6.74 K/uL (4.8-10.8) Red Blood Count 2.75 M/uL (4.7-6.1) Hemoglobin 9.4 g/dL (14.0-18.0) Hematocrit 28.0 % (42-52) Mean Corpuscular Volume 101.8 fL (80-100) Mean Corpuscular Hemoglobin 34.2 pg (25-34) Mean Corpuscular Hemoglobin Concent 33.6 g/dl (32-36) Platelet Count 149 K/uL (130-400) Mean Platelet Volume 9.2 fL (7.4-10.4) Neutrophils (%) (Auto) 61.3 % Lymphocytes (%) (Auto) 23.6 % Monocytes (%) (Auto) 9.9 % Eosinophils (%) (Auto) 4.5 % Basophils (%) (Auto) 0.3 % Neutrophils # (Auto) 4.13 K/uL (1.4-6.5) Lymphocytes # (Auto) 1.59 K/uL (1.2-3.4) Monocytes # (Auto) 0.67 K/uL (0.11-0.59) Eosinophils # (Auto) 0.30 K/uL (0-0.5) Basophils # (Auto) 0.02 K/uL (0-0.2) RDW Standard Deviation 59.3 fL (36.4-46.3) RDW Coefficient of Variation 16.1 % (11.5-14.5) Immature Granulocyte % (Auto) 0.4 % Immature Granulocyte # (Auto) 0.03 K/uL (0.00-0.02) Estimated Average Glucose 134 mg/dl Hemoglobin A1c 6.3 % (4.5-5.6) Allergies Coded Allergies: No Known Allergies (Unverified , 03/03/18) Medications Current Inpatient Medications Medications (Trade) Dose Ordered Sig/Carlos Route Start Time Stop Time Status Last Admin Dose Admin Ondansetron HCl (Zofran Inj) 4 mg Q6H PRN IV 03/03/18 21:30 04/02/18 21:29 Midodrine (Proamatine Tab) 5 mg MoWeFr@0800 PO 03/04/18 08:00 04/03/18 07:59 03/09/18 08:20 5 MG Tamsulosin HCl (Flomax Cap) 0.4 mg QPM PO 03/04/18 21:00 04/03/18 20:59 03/09/18 21:07 0.4 MG Miscellaneous Information (Order Awaiting Action) 1 ea QS N/A 03/04/18 08:00 04/03/18 07:59 Albuterol/ Ipratropium (Duoneb) 3 ml QIDR INH 03/04/18 08:00 04/03/18 07:59 03/09/18 18:55 3 ML Sucralfate (Carafate Tab) 1 gm BID PO 03/05/18 21:00 04/04/18 20:59 03/10/18 07:09 1 GM Pantoprazole Sodium (Protonix Tab) 40 mg BID@0700,1615 PO 03/07/18 16:15 04/06/18 16:14 03/10/18 06:30 40 MG Metoprolol Succinate (Toprol Xl Tab) 12.5 mg BID PO 03/08/18 09:00 04/03/18 20:59 03/10/18 07:09 12.5 MG Diltiazem HCl (Cardizem Cd Cap) 180 mg QAM PO 03/10/18 09:00 04/09/18 08:59 03/10/18 07:09 180 MG Warfarin Sodium (Coumadin Tab) 3 mg Mo@1600 PO 03/16/18 16:00 04/15/18 15:59 Warfarin Sodium (Coumadin Tab) 2 mg SuTuWeThFrSa@1600 PO 03/10/18 16:00 04/09/18 15:59 Impression (1) Melena (2) ESRD (end stage renal disease) on dialysis (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
[2018-03-10] MEDS: ALBUT/IPRATROP 3MG/0.5MG NEB 3 ML VIAL INH SCH ×3 (11:15→15:07)
--- NOTE | 2018-03-10 14:53 | Discharge Instructions ---
Discharge Instructions Date of Service Mar 10, 2018. Admission Reason for Admission: Black Stools Discharge Discharge Diagnosis / Problem: Gastrointestinal Bleed Discharge Goals Goal(s): Decrease discomfort, Improve function, Increase independence, Improve disease control, Improve nutritional status, Learn about illness, Diagnostic testing, Therapeutic intervention, Screening, Prevent Disease Progression, Specific goals Activity Recommendations Activity Limitations: resume your previous activity . Instructions / Follow-Up Instructions / Follow-Up You arrived with Anemia stemming from a bleed arising from the stomach. You were seen by Gastroenterology had an endoscopic procedure to stop the bleeding which was effective. You also were found to have a rapid heart rate associated with your Atrial Fibrillation and a result you will be going home on new heart rate controlling medications. - Please resume taking Warfarin at previous home dosing regimen. Please STOP taking Aspirin at this time to reduce risk of bleeding recurrence. - You have been placed on new rate controlling/hypertension regimen of: - Metoprolol 12.5 mg 3x/day - Diltiazem Extended release 180 mg daily - You will be placed on 2 new gastrointestinal medications, Carafate ( Take as prescribed for 1 month ONLY) in addition to Protonix. - Please follow up with your primary care provider within 1 week for repeat Blood counts ( Hemoglobin and Hematocrit) Call 911 for any of the following: You have shortness of breath or trouble breathing. You faint or lose consciousness. You have chest pain. Return to the emergency department if: You feel dizzy or are too weak to stand. Your heart is beating faster than usual. You vomit blood, or your vomit looks like coffee grounds. You have blood in your bowel movement. You have abdominal pain or swelling. Contact your healthcare provider if: You have bowel movements that are tarry or black. You have nausea or are vomiting. You have heartburn. You have questions or concerns about your condition or care. 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 Who to Call and When: Medical Emergencies: If at any time you feel your situation is an emergency, please call 911 immediately. . Non-Emergent Contact Non-Emergency issues call your: Primary Care Provider, [facility] Call Non-Emergent contact if: you have a fever, your pain is concerning you, you have any medication questions . . "Provider Documentation" section prepared by Larry Schultz. .
[2018-03-10] MEDS ORDERED: SUCR1TAB PO (15:10)
[2018-03-10] MEDS ORDERED: PANT40TA2 PO (15:10)
--- NOTE | 2018-03-10 15:12 | Discharge Summary ---
Discharge Summary Date of Service Mar 10, 2018. Discharge Summary Admission Date: Mar 03, 2018 at 21:31 Discharge Date: Mar 10, 2018 Discharge Disposition: Home Principal Diagnosis: GI Bleed, AVM Problems/Secondary Diagnoses: ESRD Immunizations: Have You Had Influenza Vaccine: Yes History of Tetanus Vaccine?: Unknown History of Pneumococcal: Yes History of Hepatitis B Vaccine: Unknown Procedures: CHEST 2 VIEWS ROUTINE HISTORY: Shortness of breath COMPARISON: Chest 02/06/2018. FINDINGS: The heart is normal in size. No pleural effusions. No pneumothorax. Mild interstitial thickening which is likely chronic. A few scarlike linear density at the left lung base, unchanged. No new focal lung consolidations to suggest pneumonia. No evidence for pulmonary edema. Emphysema is again noted. There are bilateral calcified pleural plaques. IMPRESSION: No significant change compared to the prior study. No acute process. DOPPLER ULTRASOUND HEMODIALYSIS ACCESS CLINICAL HISTORY: Prolonged bleeding time from the AV fistula. Question venous stenosis. COMPARISON STUDY: No priors. FINDINGS: Real-time, grayscale, and color Doppler sonography of the right upper extremity dialysis fistula is performed. An AV fistula is seen extending from the right brachial artery to the right cephalic vein. The fistula is patent. There is no evidence of thrombus 316 cm/s within the fistula. Velocities measure up to 400 cm/s, greatest near the arterial anastomosis. The cephalic vein is patent distal to the fistula. IMPRESSION: 1. The right upper extremity AV fistula is patent as above. 2. There is no sonographic evidence of stenosis in the cephalic vein distal to the fistula. Dictated: 03/04/2018 12:31 PM Transcribed: 03/04/2018 12:51 PM [place] Electronically signed by: Yair Laughlin M.D. 03/04/2018 1:13 PM Dictated Date/Time: 03/04/2018 12:31 PM Medication Reconciliation New Medications: Pantoprazole (Pantoprazole Sodium) 40 Mg Tab 40 MG PO QD for 30 Days, #30 TAB Sucralfate (Sucralfate) 1 Gm Tab 1 GM PO BID for 30 Days, #60 TAB 0 Refills Continued Medications: Albuterol Hfa (Ventolin Hfa) 200 Puffs/25495 Mcg Aers 2-4 PUFFS INH Q6H PRN for Shortness of Breath, #1 INHALER Atorvastatin (Lipitor) 10 Mg Tab 10 MG PO HS, TAB Budesonide/Formoterol Fumarate (Symbicort 160-4.5 Mcg/Act) 60 Puffs/Inhaler Aero 1 PUFF INH DAILY PRN for Shortness of Breath Calcium Acetate (Phoslo 667 Mg) 667 Mg Cap 1 CAP PO TID for 30 Days, #90 CAP 5 Refills with food Loperamide Hcl (Loperamide Hcl) 2 Mg Tab 2 MG PO TID Metoprolol Succinate (Toprol Xl) 25 Mg Tabcr 12.5 MG PO QPM Midodrine (Midodrine HCl) 10 Mg Tab 5 MG PO 3XWK Before HD on HD days only. Octreotide Acetate (Sandostatin [place]) 30 Mg Kit 30 MG IM MONTHLY Tamsulosin Hcl (Flomax) 0.4 Mg Cap 0.4 MG PO QPM Tiotropium [place] (Spiriva Handihaler) 30 Puff/540 Mcg Aerp 1 CAP INH QPM, INHALER Warfarin Sodium (Coumadin) 2 Mg Tab 2 MG PO 6XWK, TAB Warfarin Sodium (Coumadin) 2 Mg Tab 3 MG PO WK for 30 Days, TAB 3 Refills Friday Discontinued Medications: Aspirin (Aspirin 81) 81 Mg Tab 81 MG PO QAM Discharge Exam No acute events overnight. Patient denies further blood in stool. He denies abdominal pain, n/v, diarrhea, fatigue, lightheaded, chest pain, sob, palpitation Review of Systems: Constitutional: No fever, No chills, No weakness Cardiovascular: No chest pain, No edema, No palpitations Abdomen: + GI bleeding (resolved), No pain, No nausea, No vomiting, No diarrhea Genitourinary - Male: No hematuria, No dysuria, No urinary frequency Integumentary: No rash, No itch Hospital Course Patient is a 77 year old male with a PMH of COPD, ESRD on dialysis, Afib, BPH and neuroendocrine tumor of the liver that presented to [facility] due to black tarry stools. He notes that the black stools have been ongoing for the past several months. They will be very dark for a few days and then will be normal in colour for a few days. He has not had a dark stool for 8 days but was told to by his GI doctor to come to the ED if he were to experience any further dark stools. He started having dark stools earlier today and therefore he came to the ED. He denies any abdominal pain, bright red blood in his stools, he denies any diarrhea, he denies any pain with passing stools, he denies any nausea, vomiting , fevers or chills. He is on coumadin and his INR is currently 1.8. On review of systems the patient mentioned that he has been feeling short of breath recently when walking even a few steps. He also had 2 episodes of chest pain last week that last 2-3 minutes in duration. He notes he gets occasional palpitations and that he has Afib. He denies any leg swelling, PND, cough, or dizziness. Acute Anemia: secondary to GI bleed - asx, no further gross blood in stool - GI consulted - s/p EGD with Endoscopic cauterization via Argon plasma coagulation during admission - Placed on Carafate IV Protonix later converted to PO - Hgb 9.0 on arrival, dropped to 8.8 at lowest, received transfusion of 1 U PRBC 03/04 - Aspirin held during hospital stay and on discharge - Warfarin held on arrival , Restarted warfarin prior to discharge after discussion with GI - B12, folate unremarkable this admission - Discharged with GI, PCP followup Afib with RVR, hypotension - Afib, HR in low 100's - Cardiology consutled - Switched home regimen Metoprolol 12.5 mg BID, Cardizem 30 mg TID - Further changed Cardizem 30 mg TID to Cardizem 180 mg Extended release q daily Dyspnea, COPD - SOB resolved - possibly secondary to anemia vs COPD - CXR (03/03) : chronic interstitial change, emphysema - Troponin neg x 2, ACS unlikely - duonebs q4 ESRD on dialysis - dialysis on Friday, Friday and Friday - Nephrology consulted for dialysis input - s/p Fistulogram with angioplasty 03/06/18 Hyperglycemia, History of DM - previously on Metformin 20 yrs ago, subsequently stopped all diabetes medication - A1c 6.3 by discharge -no diabetic regimen started - f/u with PCP BPH - Continued tamsulosin HLD - Lipitor held during admission, restarted on discharge Neuroendocrine tumor of liver -stable , asx - octreotide injections qmonthly DVT PPx: contraindicated due to GI bleed Resident Physician Supervision Note: I was present with Dr. Schultz during the history and exam. I discussed the case with the resident and agree with the findings and plan as documented in the note. I also discussed the case with cardiology and reviewed medication changes and follow up with the patient. Documented By: Jamie Giles Total Time Spent: Less than 30 minutes This includes examination of the patient, discharge planning, medication reconciliation, and communication with other providers. Discharge Instructions Please refer to the electronic Patient Visit Report (Discharge Instructions) for additional information. Additional Copies To Janey Palma M.D.
[2018-03-10] MEDS ORDERED: WARFARIN SOD 2 MG TAB PO SCH (16:00)
[2018-03-16] MEDS ORDERED: PRMT10 PO (09:44)
[2018-03-16] MEDS ORDERED: SYMIN INH (12:35)
[2018-03-16] MEDS ORDERED: SPRIN/30 INH (12:35)
[2018-03-16] MEDS ORDERED: ATOR10TA82 PO (15:50)
[2018-03-16] MEDS ORDERED: WARFARIN SOD 3 MG TAB PO SCH (16:00)
[2018-03-16] MEDS ORDERED: CALC667C4 PO (16:04)
== END 2018-03-10 16:00 | disposition home or self-care (01) | DRG 981 ==
LOC: C.EDB 19:14 → C.2T 21:31 → ENRESERV 22:05
PROVIDERS: ADMIT Hospitalist; ATTEND Family Medicine
PROC: 5A1D70Z Performance of Urinary Filtration, Intermittent, Less than 6 Hours Per Day (ICD-10-PCS; 2018-03-05)
PROC: 0W3P8ZZ Control Bleeding in Gastrointestinal Tract, Via Natural or Artificial Opening Endoscopic (ICD-10-PCS; principal; 2018-03-05 15:49)
PROC: 05753ZZ Dilation of Right Subclavian Vein, Percutaneous Approach (ICD-10-PCS; 2018-03-06)
DX: Q40.3 Congenital malformation of stomach, unspecified (principal); N18.6 End stage renal disease; N17.9 Acute kidney failure, unspecified; D62 Acute posthemorrhagic anemia; C78.7 Secondary malignant neoplasm of liver and intrahepatic bile duct; T82.858A Stenosis of other vascular prosthetic devices, implants and grafts, initial encounter; I12.0 Hypertensive chronic kidney disease with stage 5 chronic kidney disease or end stage renal disease; I48.2 Chronic atrial fibrillation; Z93.2 Ileostomy status; Z79.82 Long term (current) use of aspirin; Z79.01 Long term (current) use of anticoagulants; J44.9 Chronic obstructive pulmonary disease, unspecified; N40.0 Benign prostatic hyperplasia without lower urinary tract symptoms; Z99.2 Dependence on renal dialysis; Z66 Do not resuscitate; Z87.891 Personal history of nicotine dependence; E11.65 Type 2 diabetes mellitus with hyperglycemia; Z77.090 Contact with and (suspected) exposure to asbestos; Z85.060 Personal history of malignant carcinoid tumor of small intestine; T39.015A Adverse effect of aspirin, initial encounter; Y92.019 Unspecified place in single-family (private) house as the place of occurrence of the external cause; I27.20 Pulmonary hypertension, unspecified; E11.21 Type 2 diabetes mellitus with diabetic nephropathy

== ENCOUNTER 2018-03-16 18:29 | Emergency (ER) | payer BC, OTHER ==
[~2018-03-16] VITALS: Ht 179.1 cm; Wt 106.0 kg
[~2018-03-16 18:29] MED LIST changes: -ALBUAER2 INH; -ASPI-435 PO; +ATOR10TA82 PO; +CALC667C4 PO; +METO25TA4 PO; +PANT40TA2 PO; +PRMT10 PO; -SODI650T8 PO; +SPRIN/30 INH; +SUCR1TAB PO; +SYMIN INH
[2018-03-16 18:34] VITALS: TEMP 37.2; Ht 179.1 cm; Wt 106.0 kg
--- NOTE | 2018-03-16 18:56 | EMERGENCY ROOM VISIT NOTE ---
History Report prepared by Yudith: Samanta Blanca Under the Supervision of: Dr. Chandler Ellison M.D. First contact with patient: 18:49 Chief Complaint: GI ASSESSMENT Stated Complaint: BLACK STOOL History of Present Illness The patient is a 77 year old male who presents to the Emergency Room with complaints of one episode of blood in his stool beginning today. He notes his stool was black and tarry. The patient notes he feels fine and has not other symptoms. The patient was seen in the ED last week for the same symptoms, and has a long history of GI issues. His daughter reports he had intestinal surgery 3 years ago. The patient has dialysis at [facility] 3 times a week. Source of History: patient Onset: today Position: abdomen Quality: other (blood in stool) Timing: other (one episode) Associated Symptoms: + melena Note: Denies: any other symptoms Review of Systems See HPI for pertinent positives and negatives. A total of ten systems were reviewed and were otherwise negative. 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 Family History No pertinent family history Social History Smoking Status: Never Smoker Drug Use: none Marital Status: , Housing Status: lives with family Occupation Status: retired Current/Historical Medications Scheduled Atorvastatin (Lipitor), 10 MG PO HS Calcium Acetate (Phoslo 667 Mg), 667 MG PO TID Loperamide Hcl (Imodium), 2 MG PO TID Metoprolol Succinate (Metoprolol Succinate ER), 12.5 MG PO QPM Midodrine (Midodrine HCl), 5 MG PO 3XWK Octreotide Acetate (Sandostatin [place]), 30 MG IM MONTHLY Pantoprazole (Pantoprazole Sodium), 40 MG PO QAM Sucralfate (Sucralfate), 1 GM PO BID Tamsulosin HCl (Tamsulosin HCl), 0.4 MG PO HS Tiotropium [place] (Spiriva Handihaler), 1 CAP INH QPM Warfarin Sodium (Warfarin Sodium), 2 MG PO 6XWK Warfarin Sodium (Warfarin Sodium), 3 MG PO WK Scheduled PRN Albuterol Hfa (Ventolin Hfa), 2 PUFFS INH Q6H PRN for Shortness of Breath Budesonide/Formoterol Fumarate (Symbicort 160-4.5 Mcg/Act), 1 PUFF INH DAILY PRN for Shortness of Breath Allergies Coded Allergies: No Known Allergies (Unverified , 03/03/18) Physical Exam Vital Signs Date Time Temp Pulse Resp B/P (MAP) Pulse Ox O2 Delivery O2 Flow Rate FiO2 03/16/18 21:58 94 20 112/65 03/16/18 21:58 94 20 112/65 95 03/16/18 20:34 115 22 94 03/16/18 20:29 99 20 94 Room Air 03/16/18 20:24 118 21 95 03/16/18 20:19 103 20 93 03/16/18 20:14 101 20 94 03/16/18 20:09 102 16 96 03/16/18 20:04 103 19 93 03/16/18 20:02 119/76 03/16/18 19:59 96 19 93 03/16/18 19:54 108 20 93 03/16/18 19:53 110 03/16/18 19:49 112/71 03/16/18 19:20 94 Room Air 03/16/18 18:34 37.2 100 18 107/59 94 Room Air Physical Exam GENERAL: Awake, alert, well-appearing, in no distress HENT: Normocephalic, atraumatic. Oropharynx unremarkable. EYES: Normal conjunctiva. Sclera non-icteric. NECK: Supple. No nuchal rigidity. RESPIRATORY: Clear to auscultation. No wheezes. Normal respiratory effort. CARDIAC: Mildly tachycardic rate. Irregular rhythm. Extremities warm and well perfused. GI: Soft, non-distended. No tenderness to palpation. No rebound or guarding. No masses. RECTAL: Deferred. MUSCULOSKELETAL: Atraumatic. Chest examination reveals no tenderness. There is no CVA tenderness to palpation. Right upper extremity fistula present. LOWER EXTREMITIES: Calves are equal size bilaterally and non-tender. No edema NEURO: Normal sensorium. No sensory or motor deficits noted. No facial droop. SKIN: Warm and dry. No rash or jaundice noted. RECTAL: Trace Hemoccult positive stools, otherwise normal. Medical Decision & Procedures Laboratory Results 03/16/18 19:30 Red Blood Count 2.96, Mean Corpuscular Volume 102.0, Mean Corpuscular Hemoglobin 33.4, Mean Corpuscular Hemoglobin Concent 32.8, Mean Platelet Volume 9.5, Neutrophils (%) (Auto) 63.7, Lymphocytes (%) (Auto) 23.3, Monocytes (%) ( Auto) 8.8, Eosinophils (%) (Auto) 3.4, Basophils (%) (Auto) 0.5, Neutrophils # ( Auto) 3.78, Lymphocytes # (Auto) 1.38, Monocytes # (Auto) 0.52, Eosinophils # ( Auto) 0.20, Basophils # (Auto) 0.03 03/16/18 19:30 Test 03/16/18 19:30 White Blood Count 5.93 K/uL (4.8-10.8) Red Blood Count 2.96 M/uL (4.7-6.1) Hemoglobin 9.9 g/dL (14.0-18.0) Hematocrit 30.2 % (42-52) Mean Corpuscular Volume 102.0 fL (80-100) Mean Corpuscular Hemoglobin 33.4 pg (25-34) Mean Corpuscular Hemoglobin Concent 32.8 g/dl (32-36) Platelet Count 164 K/uL (130-400) Mean Platelet Volume 9.5 fL (7.4-10.4) Neutrophils (%) (Auto) 63.7 % Lymphocytes (%) (Auto) 23.3 % Monocytes (%) (Auto) 8.8 % Eosinophils (%) (Auto) 3.4 % Basophils (%) (Auto) 0.5 % Neutrophils # (Auto) 3.78 K/uL (1.4-6.5) Lymphocytes # (Auto) 1.38 K/uL (1.2-3.4) Monocytes # (Auto) 0.52 K/uL (0.11-0.59) Eosinophils # (Auto) 0.20 K/uL (0-0.5) Basophils # (Auto) 0.03 K/uL (0-0.2) RDW Standard Deviation 57.5 fL (36.4-46.3) RDW Coefficient of Variation 15.3 % (11.5-14.5) Immature Granulocyte % (Auto) 0.3 % Immature Granulocyte # (Auto) 0.02 K/uL (0.00-0.02) Prothrombin Time 12.4 SECONDS (9.0-12.0) Prothromb Time International Ratio 1.2 (0.9-1.1) Activated Partial Thromboplast Time 25.7 SECONDS (21.0-31.0) Partial Thromboplastin Ratio 1.0 Anion Gap 9.0 mmol/L (3-11) Est Creatinine Clear Calc Drug Dose 20.5 ml/min Estimated GFR () 16.8 Estimated GFR (Non- 14.5 BUN/Creatinine Ratio 6.0 (10-20) Calcium Level 7.4 mg/dl (8.5-10.1) Total Bilirubin 0.2 mg/dl (0.2-1) Direct Bilirubin < 0.1 mg/dl (0-0.2) Aspartate Amino Transf (AST/SGOT) 26 U/L (15-37) Alanine Aminotransferase (ALT/SGPT) 25 U/L (12-78) Alkaline Phosphatase 101 U/L (45-117) Troponin I < 0.015 ng/ml (0-0.045) Total Protein 6.9 gm/dl (6.4-8.2) Albumin 2.9 gm/dl (3.4-5.0) Lipase 277 U/L (73-393) Laboratory results reviewed by me Medications Administered Medications (Trade) Dose Ordered Sig/Carlos Route Start Time Stop Time Status Last Admin Dose Admin Sodium Chloride 1,000 ml @ 999 mls/hr Q1H1M STAT IV 03/16/18 19:00 03/16/18 20:00 DC 03/16/18 20:30 999 MLS/HR ECG Per My Interpretation Indication: other (arrythmia) Rate (beats per minute): 108 Rhythm: atrial fibrillation Findings: other (No ST elevation or depression. normal QRS interval. ) Comparison ECG Date: 03/03/18 Change: Slower HR, no other significant change ED Course 1853: The patient was evaluated in room B3. A complete history and physical exam was performed. 1899: Ordered Sodium Chloride 1000 ml @ 999 mls/hr IV 2101: I reevaluated the patient. Discussed results and discharge instructions: he verbalized understanding and agreement. The patient is ready for discharge. Medical Decision Etiologies such as diverticulosis, AVM, coagulopathy, colitis, inflammatory bowel disease, malignancy, Chapis-Kellogg tear, esophagitis, peptic ulcer disease , variceal bleed, gastritis, epistaxis, fissure, hemorrhoids, as well as others were entertained. Patient presents complaining of dark colored stool this afternoon. Hemoccult stool very tracely positive. Denies other symptoms. Currently on Coumadin for history of A. fib and PE reportedly. Here several weeks ago with GI bleed status post APC for stomach angiectasia. States compliance with home Protonix. States compliance with dialysis. INR levels and repeat blood counts were sent. No acute anemia. INR 1.2. Patient asymptomatic at this time. Discussed with patient and family members options at this time for admission for observation versus discharge with return criteria. Patient otherwise feels fine is elected to go home. Feel this is reasonable and he acknowledges that he will come back if you experience his significant symptoms. Discussed the importance of outpatient follow-up medication compliance. Questions of him and his daughter were answered. Medication Reconcilliation Current Medication List: was personally reviewed by me Blood Pressure Screening Patient's blood pressure: Normal blood pressure Blood pressure disposition: Did not require urgent referral Impression Primary Impression: Melena Scribe Attestation The scribe's documentation has been prepared under my direction and personally reviewed by me in its entirety. I confirm that the note above accurately reflects all work, treatment, procedures, and medical decision making performed by me. Departure Information Dispostion Home / Self-Care Referrals No Doctor, Assigned (PCP) Forms HOME CARE DOCUMENTATION FORM, IMPORTANT VISIT INFORMATION Patient Instructions [facility] Additional Instructions Continue to take your medications as prescribed and importantly continue to take your home PPI. Follow-up with your regular doctor within next week. Follow-up on Friday with your manager philosophy. Please continue to have outpatient gastroenterology follow-up as well. If you begin to experience bloody or tarry stools please come back for reevaluation. If you experience signs of weakness shortness of breath or chest pain or any other concerns please return here as well for reevaluation.
[2018-03-16] MEDS ORDERED: SODIUM CHLORIDE 0.9% 1000ML 1,000 ML IV STA (19:00)
[2018-03-16 19:20] VITALS: O2SAT 94
[2018-03-16 19:56] LABS: BASO % 0.5 %; BASO ABS # 0.03 K/uL (0-0.2); EOS % 3.4 %; HEMATOCRIT 30.2 % (42-52); HEMOGLOBIN 9.9 g/dL (14.0-18.0); IG# 0.02 K/uL (0.00-0.02); LYMPH % 23.3 %; LYMPH ABS # 1.38 K/uL (1.2-3.4); MEAN CORPUSCULAR HEMOGLOBIN 33.4 pg (25-34); MEAN CORPUSCULAR HGB CONC 32.8 g/dl (32-36); MEAN PLATELET VOLUME 9.5 fL (7.4-10.4); MONO % 8.8 %; MONO ABS # 0.52 K/uL (0.11-0.59); NEUT % 63.7 %; NEUT ABS # 3.78 K/uL (1.4-6.5); PLATELET COUNT 164 K/uL (130-400); RED CELL DISTRIBUTION WIDTH CV 15.3 % (11.5-14.5); RED CELL DISTRIBUTION WIDTH SD 57.5 fL (36.4-46.3); WHITE BLOOD COUNT 5.93 K/uL (4.8-10.8)
[2018-03-16 20:10] LABS: INR 1.2 (0.9-1.1); PTT PATIENT 25.7 SECONDS (21.0-31.0)
[2018-03-16] MEDS ORDERED: VNTHFA/IN INH (20:17)
[2018-03-16 20:22] LABS: ALBUMIN 2.9 gm/dl (3.4-5.0); ALKALINE PHOSPHATASE 101 U/L (45-117); ALT/SGPT 25 U/L (12-78); AST/SGOT 26 U/L (15-37); BLOOD UREA NITROGEN 23 mg/dl (7-18); CALCIUM 7.4 mg/dl (8.5-10.1); CARBON DIOXIDE 29 mmol/L (21-32); CREATININE 3.83 mg/dl (0.60-1.40); GLUCOSE 159 mg/dl (70-99); LIPASE 277 U/L (73-393); POTASSIUM 2.8 mmol/L (3.5-5.1); SODIUM 136 mmol/L (136-145); TOTAL PROTEIN 6.9 gm/dl (6.4-8.2)
[2018-03-16] MEDS ORDERED: PANT1TAB4 PO (21:23)
[2018-03-16] MEDS ORDERED: TPRSR/25 PO (21:23)
[2018-03-16] MEDS ORDERED: SUCR1TAB PO (21:23)
[2018-03-16] MEDS ORDERED: [UNRECOGNIZED DRUG - CODE] IM (21:23)
[2018-03-16] MEDS ORDERED: IMD/2 PO (21:23)
[2018-03-16] MEDS ORDERED: FLM4 PO (21:23)
[2018-03-16] MEDS ORDERED: WARF4TAB43 PO ×2 (21:27)
[2018-03-16 21:58] VITALS: BP 112/65; PULSE 94; O2SAT 95
== END 2018-03-16 21:59 | disposition home or self-care (01) ==
LOC: C.EDB 18:31
DX: K92.1 Melena (principal); E11.22 Type 2 diabetes mellitus with diabetic chronic kidney disease; N18.6 End stage renal disease; Z99.2 Dependence on renal dialysis; I48.2 Chronic atrial fibrillation; Z86.711 Personal history of pulmonary embolism; Z93.2 Ileostomy status; Z79.01 Long term (current) use of anticoagulants; Z79.899 Other long term (current) drug therapy